=== PATIENT | female | born 1950 | race Caucasian/White ===

== ENCOUNTER 2016-11-10 15:46 | Observation (INO) | payer MEDICARE, BC ==
[2016-11-10] MEDS ORDERED: Ondansetron 4 MG Tab.DIS PO PRN (16:20)
[2016-11-10] MEDS ORDERED: Ibuprofen 200 MG Tab PO PRN (16:20)
[2016-11-10] MEDS ORDERED: Magnesium Sulfate/Water 100 ML IV ONE (16:25)
[2016-11-10] MEDS ORDERED: Thiamine 100 MG Tab PO STA (16:27)
[2016-11-10 17:17] LABS: CHLORIDE,CL 100 mmol/L (98-107); SODIUM,NA 135 mmol/L (136-145)
[2016-11-10] MEDS: Multivitamins with Iron/Calcium/Folic Acid/Minerals Tab PO SCH ×2 (17:17→19:33)
[2016-11-10] MEDS ORDERED: Acetaminophen 500 MG Tab PO PRN ×2 (18:23→18:29)
[2016-11-10] MEDS ORDERED: Acetaminophen 650 MG Tab.ER PO PRN (18:27)
--- NOTE | 2016-11-10 18:34 | PCM.HP ---
H&P History of Present Illness - General Date of Service: 11/10/16 Admit Problem/Dx: Admission Diagnosis/Problem Admission Diagnosis/Problem Hypokalemia Source of Information: Patient, Provider - History of Present Illness Initial Comments - Free Text/Narative: I was asked to admit patient today by her PCP for correction of hypomagnesiumemia and hypokalemia acute on chronic, levels of 0.9 and 2.8 respectively. Patient is been dealing with chronic GI issues for past six months plus. Weight loss around 35 pounds. Was having loose stools but the is improved. Stool was positive for C. diff antigen but nuclear acid testing and toxin testing were negative. She scheduled a repeat lower endoscopy. She has remote history of gastric bypass. She had CT abdomen and chest x-ray numerous blood tests which did not reveal any cause of her weight loss. She describes only eating about a couple of food per day of sardines salmon or similar. History of alcohol misuse the past she states she only has maybe one or two glasses of wine a week currently. Past medical history: Hip pain, colon polyp, anemia, DVT, GERD, depression, gastric bypass, alcohol misuse, hypertension. Allergies: Penicillin, Wellbutrin, Keflex, latex, lisinopril. Medications: Albuterol, Prozac, Imodium, losartan, aspirin. Social history: Quit smoking close to 30 years ago. Endorses about two glasses of wine per week. Family history: Noncontributory. Review of systems: Denies fever denies chills denies vomiting denies chest pain denies dyspnea denies abdominal pain denies any diarrhea currently. Denies dysuria. She notes she feels weak in general nothing focal. She notes some numbness and burning sensation to right thigh and left abdomen area. She denies any rash. Physical exam: Vital signs are normal. Alert oriented pleasant cooperative no acute distress heart and lungs are clear to auscultation abdomen soft nontender extremities warm well perfused without edema. Her creatinine is normal. Her potassium is 2.8 her magnesium is 0.9. Assessment and plan: Low potassium. Will correct with accommodation of oral and IV. Recheck levels in a.m. Given 4 g of magnesium. We'll attempt to discharge on oral product that will not cause as severe diarrhea. Regarding unintentional weight loss etiology is not clear. Fairly large workup has been negative without any findings of malignancy. She will proceed to colonoscopy later this month as planned. My suspicion is she has chronic under nutrition. She could have malabsorption from gastric bypass including bacterial overgrowth and short-bowel syndromes. She could have psychosomatic calorie restriction, she is only eating about a cup of food daily. Lastly surreptitious alcohol abuse can lead to malnutrition as well. Recommend referral to dietitian as well as getting second opinion from internal medicine. Headache Pain Score (Numeric/FACES): 4 - Related Data Allergies/Adverse Reactions: Allergies Allergy/AdvReac Type Severity Reaction Status Date / Time latex Allergy Rash Verified 05/24/14 12:16 Home Medications: Home Meds FLUoxetine [PROzac] 10 mg PO DAILY 11/10/16 [History] Losartan [Cozaar] 50 mg PO DAILY 11/10/16 [History] Multivitamin [Daily Multiple Vitamin] 1 tab PO DAILY 11/10/16 [History] Promethazine [Phenergan] 25 mg PO Q4H PRN 11/10/16 [History] Past Medical History HEENT History: Reports: Other (see below) Other HEENT History: left ear drum loss of hearing Cardiovascular History: Reports: Blood clots/VTE/DVT, Hypertension, Other (see below) Other Cardiovascular History: hx of dvts, pvcs Gastrointestinal History: Reports: Chronic diarrhea, Colon polyp, GERD, Other ( see below) Other Gastrointestinal History: hx of gatric bypass Genitourinary History: Reports: UTI, recurrent, Other (see below) Other Genitourinary History: urethral stenosis, urethral diverticulum Musculoskeletal History: Reports: Other (see below) Other Musculoskeletal History: osteopenia Psychiatric History: Reports: Anxiety, Depression Endocrine/Metabolic History: Reports: Osteopenia Hematologic History: Reports: Anemia, B12 deficiency, Iron deficiency - Past Surgical History HEENT Surgical History: Reports: None Cardiovascular Surgical History: Reports: None GI Surgical History: Reports: Bariatric procedure, Cholecystectomy, Colonoscopy , Hernia repair/other, Other (see below) Other GI Surgeries/Procedures: gastric bypass Female Surgical History: Reports: Breast reduction Endocrine Surgical History: Reports: None Musculoskeletal Surgical History: Reports: None Social & Family History - Family History Family Medical History: Noncontributory - Tobacco Use Smoking Status *Q: Former Smoker Second Hand Smoke Exposure: No - Caffeine Use Caffeine Use: Reports: None - Recreational Drug Use Recreational Drug Use: No H&P Review of Systems - Review of Systems: Review Of Systems: See Below Exam - Exam Exam: See Below - Vital Signs Vital Signs: Last Vital Signs Temp 36.7 C 11/10/16 17:05 Pulse 66 11/10/16 17:05 Resp 16 11/10/16 17:05 BP 119/81 11/10/16 17:05 Pulse Ox 98 11/10/16 17:05 Weight: 70.035 kg - Patient Data Lab Results last 24 hrs: Laboratory Results - last 24 hr 11/10/16 11/10/16 11/10/16 Range/Units 16:42 16:42 16:42 PT 11.9 (10.0-12.8) SEC INR 1.0 L (2.0-3.5) Sodium 135 L (136-145) mmol/L Potassium 2.8 L* (3.5-5.1) mmol/L Chloride 100 (98-107) mmol/L Carbon Dioxide 31 (21-32) mmol/L BUN 9 (7-18) mg/dL Creatinine 0.9 (0.55-1.02) mg/dL Est Cr Clr Drug Dosing 49.49 mL/min Estimated GFR (MDRD) > 60 Glucose 113 H (74-106) mg/dL Calcium 8.6 (8.5-10.1) mg/dL Corrected Calcium 9.80 (8.5-10.1) mg/dL Magnesium 0.9 L* (1.8-2.4) mg/dL Iron 48 L (50-170) ug/dL TIBC 181 L (250-450) ug/dL % Saturation 26.5 (20.0-50.0) % Total Bilirubin 0.6 (0.2-1.0) mg/dL AST 122 H (15-37) U/L ALT 37 (14-59) U/L Alkaline Phosphatase 96 (46-116) U/L Total Protein 6.2 L (6.4-8.2) g/dL Albumin 2.5 L (3.4-5.0) g/dL Globulin 3.7 Albumin/Globulin Ratio 0.68 Ethyl Alcohol < 3 (0-3) mg/dL Result Diagrams: 11/10/16 16:42 *Q Meaningful Use (ADM) - VTE *Q VTE Criteria *Q: - Stroke *Q Stroke Criteria *Q: - AMI *Q AMI Criteria *Q: Problem List Initiated/Reviewed/Updated: Yes Orders Last 24hrs: Active Orders 24 hr Category Date Time Status Admission Status [Patient Status] [ADT] Routine ADT 11/10/16 15:48 Active Patient Status [ADT] Routine ADT 11/10/16 16:20 Active Ambulate [RC] 08,20 Care 11/10/16 16:21 Active Height and Weight [RC] DAILY Care 11/10/16 16:20 Active Oxygen Therapy [RC] .PRN Care 11/10/16 16:20 Active Up ad Mary Ann [RC] 08,20 Care 11/10/16 16:20 Active VTE/DVT Education [RC] .PRN Care 11/10/16 16:20 Active Vital Signs [RC] 06,10,14,18,22,02 Care 11/10/16 16:20 Active Consult to Welfare Eligibility Worker [CONS] Routine Cons 11/10/16 18:27 Ordered Regular Diet [DIET] Diet 11/10/16 Dinner Active C-REACTIVE PROTEIN [CHEM] AM Lab 11/11/16 05:11 Ordered CBC WITH AUTO DIFF [HEME] AM Lab 11/11/16 05:11 Ordered COMPREHENSIVE METABOLIC PN,CMP [CHEM] AM Lab 11/11/16 05:11 Ordered DRUG SCREEN, URINE [URCHEM] Routine Lab 11/10/16 16:23 Uncollected GGT [REF] Routine Lab 11/10/16 16:42 Received MAGNESIUM [CHEM] AM Lab 11/11/16 05:11 Ordered PHOSPHORUS [CHEM] AM Lab 11/11/16 05:11 Ordered UA W/MICROSCOPIC [URIN] Routine Lab 11/10/16 16:20 Uncollected Acetaminophen [Tylenol Arthritis Pain] Med 11/10/16 18:27 Ordered 650 mg PO Q8H PRN Acetaminophen [Tylenol Extra Strength] Med 11/10/16 18:23 Ordered 500 mg PO Q6H PRN D5 1/2 NS w/ 40 mEq/L KCl 1,000 ml Med 11/10/16 16:30 Active IV ASDIRECTED Ibuprofen [Motrin] Med 11/10/16 16:20 Active 400 mg PO Q6H PRN Multivitamins w-Iron/Ca/FA/Min [Thera M Plus] Med 11/10/16 16:30 Active 1 tab PO BID Ondansetron [Zofran ODT] Med 11/10/16 16:20 Active 4 mg PO Q6H PRN Potassium Chloride [Klor-Con M20] Med 11/10/16 20:00 Active 20 meq PO TID Resuscitation Status Routine Resus Stat 11/10/16 16:20 Ordered Medication Orders Acetaminophen (Tylenol Extra Strength) 500 mg PO Q6H PRN PRN Reason: Pain Potassium Chloride/Dextrose/Sod Cl (D5 1/2 Ns W/ 40 Meq/L Kcl) 1,000 mls @ 150 mls/hr IV ASDIRECTED [facility] Ibuprofen (Motrin) 400 mg PO Q6H PRN PRN Reason: Pain (mild 1-3) Multivitamins/Minerals (Thera M Plus) 1 tab PO BID [facility] Last Admin: 11/10/16 17:17 Dose: 1 tab Ondansetron HCl (Zofran Odt) 4 mg PO Q6H PRN PRN Reason: nausea, able to take PO Potassium Chloride (Klor-Con M20) 20 meq PO TID LON
[2016-11-10] MEDS: D5 1/2 NS w/ 40 mEq/L KCl 1,000 ML IV SCH (18:38)
[2016-11-10] MEDS: Potassium Chloride 20 MEQ Tab.ER PO SCH (19:33)
[2016-11-11] MEDS: D5 1/2 NS w/ 40 mEq/L KCl 1,000 ML IV SCH ×2 (01:30→07:46)
[2016-11-11 07:02] LABS: CHLORIDE,CL 106 mmol/L (98-107); SODIUM,NA 141 mmol/L (136-145)
[2016-11-11] MEDS: Potassium Chloride 20 MEQ Tab.ER PO SCH ×2 (07:46→11:33)
[2016-11-11] MEDS: Multivitamins with Iron/Calcium/Folic Acid/Minerals Tab PO SCH (07:46)
[2016-11-11 11:06] VITALS: BP 102/61
--- NOTE | 2016-11-11 12:16 | PCM.DCSUM1 ---
Discharge Summary - Hospital Course Free Text/Narrative:: Patient was admitted for hypo potassium, magnesium, phosphorus. 2.8, 0.9, 1.1 respectively. Potassium and mag replaced normalized by day of discharge. Patient's tolerating oral intake. She eats very little maybe a cup of food per day. She minimizes alcohol use she think she only has two drinks of wine per week. She was having some issues with diarrhea in the past denies any issues now, her reflex C. difficile test at [facility] was negative. She said about a 35 pound weight loss over the past six months. Negative chest x-ray negative CT abdomen. Undergoing repeat lower endoscopy later this month. She's followed up with bariatric clinic as well. She eats very little, she hen pecks at her food, she's worried that foods will trigger diarrhea again. The diagnosis would be weight loss and electrolyte deficiencies from undernutrition and anorexia. This can be from physiologic digestion probs status post gastric bypass, it can be psychiatric in nature due to excessive restriction in these patients, additionally can be from consuming alcohol and other non-nutritive items. Patient refused to see dietitian during her stay. She'll follow-up with her primary next week to recheck electrolytes. She should push high-calorie foods at home and interim. I suggest she discuss with her primary about seeing dietitian on outpatient basis. She will proceed to repeat endoscopy as planned. I have sent oral potassium magnesium phosphorus replacements to the pharmacy. Could consider referral to eating disorder clinic as well. I would recommend avoiding aspirin and Sayed's and alcohol as he is can all cause gastric irritation status post gastric bypass. I do not see that she is on any secondary aspirin prophylaxis. - Discharge Data Discharge Date: 11/11/16 Discharge Disposition: Home, Self-Care 01 Condition: Critical - Patient Summary/Data Consults: Consultations 11/10/16 18:27 Consult to [facility] [CONS] Routine - Discharge Plan Home Medications: Home Meds FLUoxetine [PROzac] 10 mg PO DAILY 11/10/16 [History] Losartan [Cozaar] 50 mg PO DAILY 11/10/16 [History] Multivitamin [Daily Multiple Vitamin] 1 tab PO DAILY 11/10/16 [History] Promethazine [Phenergan] 25 mg PO Q4H PRN 11/10/16 [History] Acetaminophen [Tylenol Extra Strength] 500 mg PO Q6H PRN #0 tablet 11/11/16 [Rx] Albuterol [Ventolin HFA] 2 puff PO Q4H PRN 11/11/16 [History] Ondansetron [Zofran ODT] 4 mg PO Q6H PRN #0 tab.dis 11/11/16 [Rx] Potassium Chloride [Klor-Con M20] 20 meq PO TID tab.er 11/11/16 [Rx] - Patient Data Vitals - Most Recent: Last Vital Signs Temp 37.0 C 11/11/16 10:00 Pulse 70 11/11/16 10:00 Resp 18 11/11/16 10:00 BP 102/61 11/11/16 10:00 Pulse Ox 100 11/11/16 10:00 Weight - Most Recent: 70.216 kg I&O - Last 24 hours: Intake & Output 11/10/16 11/11/16 11/11/16 22:59 06:59 14:59 Intake Total 740 1950 200 Output Total 450 350 Balance 290 1600 200 Lab Results - Last 24 hrs: Laboratory Results - last 24 hr 11/10/16 11/10/16 11/10/16 Range/Units 16:42 16:42 16:42 WBC (4.0-10.0) x10^3/uL RBC (4.00-5.50) x10^6/uL Hgb (12.0-16.0) g/dL Hct (33.0-47.0) % MCV (78.0-93.0) fL MCH (26.0-32.0) pg MCHC (32.0-36.0) g/dL RDW Coeff of Bryant (10.0-15.0) % Plt Count (130-400) x10^3/uL Neut % (Auto) (50.0-80.0) % Lymph % (Auto) (25.0-50.0) % [place] % (Auto) (2.0-11.0) % Eos % (Auto) (0.0-4.0) % Baso % (Auto) (0.2-1.2) % PT 11.9 (10.0-12.8) SEC INR 1.0 L (2.0-3.5) Sodium 135 L (136-145) mmol/L Potassium 2.8 L* (3.5-5.1) mmol/L Chloride 100 (98-107) mmol/L Carbon Dioxide 31 (21-32) mmol/L BUN 9 (7-18) mg/dL Creatinine 0.9 (0.55-1.02) mg/dL Est Cr Clr Drug Dosing 49.49 mL/min Estimated GFR (MDRD) > 60 Glucose 113 H (74-106) mg/dL Calcium 8.6 (8.5-10.1) mg/dL Corrected Calcium 9.80 (8.5-10.1) mg/dL Phosphorus (2.6-4.7) mg/dL Magnesium 0.9 L* (1.8-2.4) mg/dL Iron 48 L (50-170) ug/dL TIBC 181 L (250-450) ug/dL % Saturation 26.5 (20.0-50.0) % Total Bilirubin 0.6 (0.2-1.0) mg/dL AST 122 H (15-37) U/L ALT 37 (14-59) U/L Alkaline Phosphatase 96 (46-116) U/L C-Reactive Protein (<=0.9) mg/dL Total Protein 6.2 L (6.4-8.2) g/dL Albumin 2.5 L (3.4-5.0) g/dL Globulin 3.7 Albumin/Globulin Ratio 0.68 Urine Color (YELLOW) Urine Appearance (CLEAR) Urine pH (5.0-8.0) Ur Specific [place] Urine Protein (NEGATIVE) mg/dL Urine Glucose (UA) (NEGATIVE) mg/dL Urine Ketones (NEGATIVE) mg/dL Urine Occult Blood (NEGATIVE) Urine Nitrite (NEGATIVE) Urine Bilirubin (NEGATIVE) Urine Urobilinogen (0.2) EU/dL Ur Leukocyte Esterase (NEGATIVE) Urine RBC (NOT SEEN) /HPF Urine WBC (NOT SEEN) /HPF Ur Squamous Epith Cells (NEGATIVE) /HPF Urine Bacteria (NEGATIVE) /HPF Urine Mucus (NEGATIVE) /LPF Urine Opiates Screen (NEGATIVE) Ur Buprenorphine Scrn (NEGATIVE) Ur Oxycodone Screen (NEGATIVE) Urine Methadone Screen (NEGATIVE) Ur Barbiturates Screen (NEGATIVE) Ur Tricyclics Screen (NEGATIVE) Ur Amphetamine Screen (NEGATIVE) U Methamphetamines Scrn (NEGATIVE) Urine MDMA Screen (NEGATIVE) U Benzodiazepines Scrn (NEGATIVE) U Cocaine Metab Screen (NEGATIVE) U Marijuana (THC) Screen (NEGATIVE) Ethyl Alcohol < 3 (0-3) mg/dL 11/10/16 11/10/16 11/11/16 Range/Units 20:03 20:03 06:29 WBC 3.8 L (4.0-10.0) x10^3/uL RBC 2.74 L (4.00-5.50) x10^6/uL Hgb 9.0 L (12.0-16.0) g/dL Hct 26.9 L (33.0-47.0) % MCV 98.2 H (78.0-93.0) fL MCH 32.8 H (26.0-32.0) pg MCHC 33.5 (32.0-36.0) g/dL RDW Coeff of Bryant 14.2 (10.0-15.0) % Plt Count 195 (130-400) x10^3/uL Neut % (Auto) 59.0 (50.0-80.0) % Lymph % (Auto) 23.7 L (25.0-50.0) % [place] % (Auto) 14.1 H (2.0-11.0) % Eos % (Auto) 2.9 (0.0-4.0) % Baso % (Auto) 0.3 (0.2-1.2) % PT (10.0-12.8) SEC INR (2.0-3.5) Sodium (136-145) mmol/L Potassium (3.5-5.1) mmol/L Chloride (98-107) mmol/L Carbon Dioxide (21-32) mmol/L BUN (7-18) mg/dL Creatinine (0.55-1.02) mg/dL Est Cr Clr Drug Dosing mL/min Estimated GFR (MDRD) Glucose (74-106) mg/dL Calcium (8.5-10.1) mg/dL Corrected Calcium (8.5-10.1) mg/dL Phosphorus (2.6-4.7) mg/dL Magnesium (1.8-2.4) mg/dL Iron (50-170) ug/dL TIBC (250-450) ug/dL % Saturation (20.0-50.0) % Total Bilirubin (0.2-1.0) mg/dL AST (15-37) U/L ALT (14-59) U/L Alkaline Phosphatase (46-116) U/L C-Reactive Protein (<=0.9) mg/dL Total Protein (6.4-8.2) g/dL Albumin (3.4-5.0) g/dL Globulin Albumin/Globulin Ratio Urine Color Yellow (YELLOW) Urine Appearance Cloudy H (CLEAR) Urine pH 7.0 (5.0-8.0) Ur Specific Newberry 1.010 Urine Protein Negative (NEGATIVE) mg/dL Urine Glucose (UA) Negative (NEGATIVE) mg/dL Urine Ketones Negative (NEGATIVE) mg/dL Urine Occult Blood Negative (NEGATIVE) Urine Nitrite Negative (NEGATIVE) Urine Bilirubin Negative (NEGATIVE) Urine Urobilinogen 0.2 (0.2) EU/dL Ur Leukocyte Esterase Large H (NEGATIVE) Urine RBC 0-5 (NOT SEEN) /HPF Urine WBC 10-20 H (NOT SEEN) /HPF Ur Squamous Epith Cells Many H (NEGATIVE) /HPF Urine Bacteria Few H (NEGATIVE) /HPF Urine Mucus Not seen (NEGATIVE) /LPF Urine Opiates Screen Negative (NEGATIVE) Ur Buprenorphine Scrn Negative (NEGATIVE) Ur Oxycodone Screen Negative (NEGATIVE) Urine Methadone Screen Negative (NEGATIVE) Ur Barbiturates Screen Negative (NEGATIVE) Ur Tricyclics Screen Negative (NEGATIVE) Ur Amphetamine Screen Negative (NEGATIVE) U Methamphetamines Scrn Negative (NEGATIVE) Urine MDMA Screen Negative (NEGATIVE) U Benzodiazepines Scrn Negative (NEGATIVE) U Cocaine Metab Screen Negative (NEGATIVE) U Marijuana (THC) Screen Negative (NEGATIVE) Ethyl Alcohol (0-3) mg/dL 11/11/16 Range/Units 06:29 WBC (4.0-10.0) x10^3/uL RBC (4.00-5.50) x10^6/uL Hgb (12.0-16.0) g/dL Hct (33.0-47.0) % MCV (78.0-93.0) fL MCH (26.0-32.0) pg MCHC (32.0-36.0) g/dL RDW Coeff of Bryant (10.0-15.0) % Plt Count (130-400) x10^3/uL Neut % (Auto) (50.0-80.0) % Lymph % (Auto) (25.0-50.0) % [place] % (Auto) (2.0-11.0) % Eos % (Auto) (0.0-4.0) % Baso % (Auto) (0.2-1.2) % PT (10.0-12.8) SEC INR (2.0-3.5) Sodium 141 (136-145) mmol/L Potassium 4.1 (3.5-5.1) mmol/L Chloride 106 (98-107) mmol/L Carbon Dioxide 29 (21-32) mmol/L BUN 8 (7-18) mg/dL Creatinine 0.9 (0.55-1.02) mg/dL Est Cr Clr Drug Dosing 49.49 mL/min Estimated GFR (MDRD) > 60 Glucose 120 H (74-106) mg/dL Calcium 7.9 L (8.5-10.1) mg/dL Corrected Calcium 9.34 (8.5-10.1) mg/dL Phosphorus 1.1 L* (2.6-4.7) mg/dL Magnesium 1.8 (1.8-2.4) mg/dL Iron (50-170) ug/dL TIBC (250-450) ug/dL % Saturation (20.0-50.0) % Total Bilirubin 0.5 (0.2-1.0) mg/dL AST 88 H (15-37) U/L ALT 30 (14-59) U/L Alkaline Phosphatase 92 (46-116) U/L C-Reactive Protein 2.6 H (<=0.9) mg/dL Total Protein 5.5 L (6.4-8.2) g/dL Albumin 2.2 L (3.4-5.0) g/dL Globulin 3.3 Albumin/Globulin Ratio 0.67 Urine Color (YELLOW) Urine Appearance (CLEAR) Urine pH (5.0-8.0) Ur Specific [place] Urine Protein (NEGATIVE) mg/dL Urine Glucose (UA) (NEGATIVE) mg/dL Urine Ketones (NEGATIVE) mg/dL Urine Occult Blood (NEGATIVE) Urine Nitrite (NEGATIVE) Urine Bilirubin (NEGATIVE) Urine Urobilinogen (0.2) EU/dL Ur Leukocyte Esterase (NEGATIVE) Urine RBC (NOT SEEN) /HPF Urine WBC (NOT SEEN) /HPF Ur Squamous Epith Cells (NEGATIVE) /HPF Urine Bacteria (NEGATIVE) /HPF Urine Mucus (NEGATIVE) /LPF Urine Opiates Screen (NEGATIVE) Ur Buprenorphine Scrn (NEGATIVE) Ur Oxycodone Screen (NEGATIVE) Urine Methadone Screen (NEGATIVE) Ur Barbiturates Screen (NEGATIVE) Ur Tricyclics Screen (NEGATIVE) Ur Amphetamine Screen (NEGATIVE) U Methamphetamines Scrn (NEGATIVE) Urine MDMA Screen (NEGATIVE) U Benzodiazepines Scrn (NEGATIVE) U Cocaine Metab Screen (NEGATIVE) U Marijuana (THC) Screen (NEGATIVE) Ethyl Alcohol (0-3) mg/dL Med Orders - Current: Current Medications Acetaminophen (Tylenol Extra Strength) 500 mg PO Q6H PRN PRN Reason: Pain Last Admin: 11/10/16 18:37 Dose: 500 mg Potassium Chloride/Dextrose/Sod Cl (D5 1/2 Ns W/ 40 Meq/L Kcl) 1,000 mls @ 150 mls/hr IV ASDIRECTED [facility] Last Admin: 11/11/16 07:46 Dose: 150 mls/hr Ibuprofen (Motrin) 400 mg PO Q6H PRN PRN Reason: Pain (mild 1-3) Multivitamins/Minerals (Thera M Plus) 1 tab PO BID [facility] Last Admin: 11/11/16 07:46 Dose: 1 tab Ondansetron HCl (Zofran Odt) 4 mg PO Q6H PRN PRN Reason: nausea, able to take PO Potassium Chloride (Klor-Con M20) 20 meq PO TID [facility] Last Admin: 11/11/16 11:33 Dose: 20 meq Discontinued Medications Acetaminophen (Tylenol Arthritis Pain) 650 mg PO Q8H PRN PRN Reason: Pain Acetaminophen (Tylenol Extra Strength) 500 mg PO Q6H PRN PRN Reason: Pain Magnesium Sulfate (Magnesium Sulfate 4 Gm In Water 100 Ml) 100 mls @ 100 mls/ hr IV ONETIME ONE Stop: 11/10/16 17:24 Last Admin: 11/10/16 17:17 Dose: 100 mls/hr Thiamine HCl (Vitamin B-1) 100 mg PO NOW STA Stop: 11/10/16 16:28 Last Admin: 11/10/16 17:17 Dose: 100 mg *Q Meaningful Use (DIS) - VTE *Q VTE Criteria *Q: - Stroke *Q Stroke Criteria *Q: - AMI *Q AMI Criteria *Q:
== END 2016-11-11 13:55 | disposition home or self-care (01) ==
LOC: VM.MS 15:48 → UNDOADMOB 16:06
PROVIDERS: ADMIT Family Medicine; ATTEND Family Medicine
DX: E87.6 Hypokalemia (principal); E83.42 Hypomagnesemia; K21.9 Gastro-esophageal reflux disease without esophagitis; F32.9 Major depressive disorder, single episode, unspecified; I10 Essential (primary) hypertension; D51.9 Vitamin B12 deficiency anemia, unspecified; F41.9 Anxiety disorder, unspecified; D50.0 Iron deficiency anemia secondary to blood loss (chronic); Z86.010 Personal history of colon polyps; Z79.899 Other long term (current) drug therapy; Z88.0 Allergy status to penicillin; Z88.8 Allergy status to other drugs, medicaments and biological substances; Z91.040 Latex allergy status; Z87.891 Personal history of nicotine dependence; M85.80 Other specified disorders of bone density and structure, unspecified site; Z90.49 Acquired absence of other specified parts of digestive tract; Z98.890 Other specified postprocedural states
CPT/HCPCS: 36415; 80053; 80305; 81001; 82977; 83540; 83550; 83735; 84100; 85025; 85610; 86140; 94760; 96365; 96366; 96367; A9270; G0378; G0480; J3475; J3480

== ENCOUNTER 2017-05-30 18:37 | Inpatient (IN) | payer MEDICARE, BC ==
[2017-05-30] MEDS ORDERED: Sodium Chloride 0.9% 10 ML Syringe FLUSH PRN (19:21)
--- NOTE | 2017-05-30 19:21 | EDM.PDOCBH ---
ED HPI GENERAL MEDICAL PROBLEM - General Chief Complaint: Drug or Alcohol Abuse Stated Complaint: "I need detox, I want to quit drinking" Time Seen by Provider: 05/30/17 18:38 Source of Information: Reports: Patient, Family, RN, RN Notes Reviewed History Limitations: Reports: No Limitations - History of Present Illness INITIAL COMMENTS - FREE TEXT/NARRATIVE: Patient presents the emergency room at [facility] requesting medical clearance so she may be admitted to a detox center for alcoholism. The patient states that she began heavily drinking about 6 years ago. The patient states that she drinks anywhere from 5-10 glasses of Bacardi liquor daily. The patient states that she has drink 10 glasses today prior to presentation. The patient states she has tried quitting "cold turkey" on her own without success. The patient states that she has "hit rock bottom" and needs to stop consuming alcohol. The patient states she has highly motivated. The patient states if she does not consume alcohol every 2-3 hours she starts feeling the effects of withdrawal such as shaking, agitation, sweating, and extreme cravings. The patient states that she has not had any recent legal trouble due to her alcoholism. The patient has not been formally detoxed in the past. The patient states that she is highly motivated to stop consuming alcohol. The patient currently denies any focal neurological deficit, however she does feel somewhat shaky. The patient denies any chest pain but has palpitations. The patient states she has diarrhea daily basis in which she does consume antidiarrheal medication daily. The patient denies any trouble with urination. The patient denies any shortness of breath. The patient states that she has been experiencing auditory and visual hallucinations over the past few days. The patient states she has a long-standing history of severe depression. 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: Other (see below) (None) - Related Data Allergies Allergy/AdvReac Type Severity Reaction Status Date / Time latex Allergy Rash Verified 05/30/17 20:45 Home Meds: Home Meds FLUoxetine [PROzac] 10 mg PO DAILY 11/10/16 [History] Multivitamin [Daily Multiple Vitamin] 1 tab PO DAILY 11/10/16 [History] Acetaminophen [Tylenol Extra Strength] 500 mg PO Q6H PRN #0 tablet 11/11/16 [Rx] Albuterol [Ventolin HFA] 2 puff PO Q4H PRN 11/11/16 [History] Biotin 2,500 mcg PO DAILY 05/30/17 [History] Cholecalciferol (Vitamin D3) [D3-2000] 5,000 units PO DAILY 05/30/17 [History] Cyanocobalamin (Vitamin B-12) [B-12] 1,000 mcg PO DAILY 05/30/17 [History] Omeprazole Magnesium [Prilosec Otc] 20 mg PO DAILY 05/30/17 [History] Past Medical History HEENT History: Reports: Other (See Below) Other HEENT History: left ear drum loss of hearing Cardiovascular History: Reports: Blood Clots/VTE/DVT, Hypertension Other Cardiovascular History: hx of dvts, pvcs Gastrointestinal History: Reports: Chronic Diarrhea, Colon Polyp, GERD, Other ( See Below) Other Gastrointestinal History: hx of gatric bypass Genitourinary History: Reports: UTI, Recurrent, Other (See Below) Other Genitourinary History: urethral stenosis, urethral diverticulum Musculoskeletal History: Reports: Other (See Below) Other Musculoskeletal History: osteopenia Psychiatric History: Reports: Addiction, Anxiety, Depression Endocrine/Metabolic History: Reports: Osteopenia Hematologic History: Reports: Anemia, B12 Deficiency, Iron Deficiency - Past Surgical History GI Surgical History: Reports: Bariatric Procedure, Cholecystectomy, Colonoscopy , Hernia Repair/Other, Other (See Below) Female Surgical History: Reports: Breast Reduction Endocrine Surgical History: Reports: None Social & Family History - Family History Family Medical History: Noncontributory - Tobacco Use Smoking Status *Q: Former Smoker Second Hand Smoke Exposure: No - Caffeine Use Caffeine Use: Reports: None - Alcohol Use Alcohol Use History: Yes Days Per Week of Alcohol Use: 7 Number of Drinks Per Day: 10 Total Drinks Per Week: 70 Date of Last Drink: 05/30/17 Alcohol Use in Last Twelve Months: Yes Alcohol Use Frequency: Daily Desires Substance Cessation Medication: Yes - Recreational Drug Use Recreational Drug Use: No - Living Situation & Occupation Living situation: Reports: , Alone Occupation: Retired ED ROS GENERAL - Review of Systems Review Of Systems: See Below Constitutional: Reports: Decreased Appetite. Denies: Fever, Chills, Weakness HEENT: Reports: No Symptoms Respiratory: Denies: Shortness of Breath, Cough Cardiovascular: Reports: Palpitations. Denies: Chest Pain GI/Abdominal: Reports: Diarrhea, Nausea, Vomiting. Denies: Abdominal Pain Skin: Reports: No Symptoms Neurological: Reports: No Symptoms. Denies: Dizziness, Headache, Numbness, Paresthesia, Tingling Psychiatric: Reports: Agitation, Anxiety, Cravings. Denies: Homicidal Ideation , Suicidal Ideation ED EXAM, BEHAVIORAL HEALTH - Physical Exam Exam: See Below Exam Limited By: No Limitations General Appearance: Alert, Anxious, Mild Distress Eye Exam: Bilateral Eye: EOMI, Normal Inspection, PERRL Head: Atraumatic, Normocephalic Neck: Supple Respiratory/Chest: No Respiratory Distress, Lungs Clear, Normal Breath Sounds Cardiovascular: Regular Rate, Rhythm, No Murmur GI/Abdominal: Soft, Non-Tender, Abnormal Bowel Sounds (Hyperactive) Neurological: Alert, Oriented x 3 Psychiatric: Depressed Mood, Flat Affect, Tearful, Auditory Hallucinations, Visual Hallucinations. No: Homicidal Thoughts, Suicidal Thoughts Skin Exam: Warm, Dry, Intact, Normal color, No rash EKG INTERPRETATION EKG Date: 05/30/17 Time: 19:36 Rhythm: NSR Rate (Beats/Min): 76 Spout [place]: Normal P-Wave: Present QRS: Normal ST-T: Normal QT: Normal VA/PQ Interval: 0.16 Comparison: NA - No Prior EKG EKG Interpretation Comments: 1. Sinus Rhythm with frequent Ventricular Premature Complexes with occasional Supraventricular premature complexes 2. Low QRS voltage in precordial leads 3. Nonspecific T-wave abnormality COURSE, BEHAVIORAL HEALTH COMP - Course Vital Signs: Last Vital Signs Temp 36.5 C 05/30/17 18:38 Pulse 82 05/30/17 18:38 Resp 18 05/30/17 18:38 BP 138/95 H 05/30/17 18:38 Pulse Ox 98 05/30/17 18:38 Orders, Labs, Meds: Active Orders 24 hr Category Date Time Status Admission Status [Patient Status] [ADT] Routine ADT 05/30/17 20:55 Ordered EKG 12 Lead [EKG Documentation Completion] [RC] STAT Care 05/30/17 19:22 Ordered Magnesium Sulfate/Water [Magnesium Sulfate 2 GM in Med 05/30/17 20:22 Active Water 50 ML] 2 gm Premix Bag 1 bag IV ONETIME Sodium Chloride 0.9% [Saline Flush] Med 05/30/17 19:21 Active 10 ml FLUSH ASDIRECTED PRN Peripheral IV Insertion Adult [OM.PC] Routine Oth 05/30/17 19:21 Ordered Medication Orders Magnesium Sulfate 2 gm/ Premix 50 mls @ 25 mls/hr IV ONETIME ONE Stop: 05/30/17 22:21 Sodium Chloride (Saline Flush) 10 ml FLUSH ASDIRECTED PRN PRN Reason: Keep Vein Open Laboratory Tests 05/30/17 05/30/17 05/30/17 Range/Units 19:55 19:55 20:25 WBC 9.2 (4.0-10.0) x10^3/uL RBC 4.03 (4.00-5.50) x10^6/uL Hgb 13.0 D (12.0-16.0) g/dL Hct 38.2 (33.0-47.0) % MCV 94.8 H D (78.0-93.0) fL MCH 32.3 H (26.0-32.0) pg MCHC 34.0 (32.0-36.0) g/dL RDW Coeff of Bryant 13.9 (10.0-15.0) % Plt Count 172 (130-400) x10^3/uL Neut % (Auto) 69.5 (50.0-80.0) % Lymph % (Auto) 20.2 L (25.0-50.0) % [place] % (Auto) 9.0 (2.0-11.0) % Eos % (Auto) 1.0 (0.0-4.0) % Baso % (Auto) 0.3 (0.2-1.2) % Sodium 136 (136-145) mmol/L Potassium 3.6 (3.5-5.1) mmol/L Chloride 100 (98-107) mmol/L Carbon Dioxide 25 (21-32) mmol/L BUN 8 (7-18) mg/dL Creatinine 1.0 (0.55-1.02) mg/dL Est Cr Clr Drug Dosing TNP Estimated GFR (MDRD) 55 Glucose 95 (74-106) mg/dL Calcium 8.4 L (8.5-10.1) mg/dL Corrected Calcium 9.20 (8.5-10.1) mg/dL Phosphorus 3.6 (2.6-4.7) mg/dL Magnesium 1.5 L (1.8-2.4) mg/dL Total Bilirubin 1.1 H (0.2-1.0) mg/dL AST 106 H (15-37) U/L ALT 66 H (14-59) U/L Alkaline Phosphatase 131 H (46-116) U/L Total Protein 7.1 (6.4-8.2) g/dL Albumin 3.0 L (3.4-5.0) g/dL Globulin 4.1 Albumin/Globulin Ratio 0.73 Urine Color Yellow (YELLOW) Urine Appearance Slightly cloudy H (CLEAR) Urine pH 6.5 (5.0-8.0) Ur Specific Clancy 1.010 Urine Protein Negative (NEGATIVE) mg/dL Urine Glucose (UA) Negative (NEGATIVE) mg/dL Urine Ketones Negative (NEGATIVE) mg/dL Urine Occult Blood Negative (NEGATIVE) Urine Nitrite Negative (NEGATIVE) Urine Bilirubin Negative (NEGATIVE) Urine Urobilinogen 1.0 (0.2) EU/dL Ur Leukocyte Esterase Small H (NEGATIVE) Urine RBC 0-5 (NOT SEEN) /HPF Urine WBC 10-20 H (NOT SEEN) /HPF Ur Squamous Epith Cells Few H (NEGATIVE) /HPF Urine Bacteria Few H (NEGATIVE) /HPF Urine Mucus Rare H (NEGATIVE) /LPF Urine Opiates Screen (NEGATIVE) Ur Buprenorphine Scrn (NEGATIVE) Ur Oxycodone Screen (NEGATIVE) Urine Methadone Screen (NEGATIVE) Ur Barbiturates Screen (NEGATIVE) Ur Tricyclics Screen (NEGATIVE) Ur Amphetamine Screen (NEGATIVE) U Methamphetamines Scrn (NEGATIVE) Urine MDMA Screen (NEGATIVE) U Benzodiazepines Scrn (NEGATIVE) U Cocaine Metab Screen (NEGATIVE) U Marijuana (THC) Screen (NEGATIVE) Ethyl Alcohol 154 H (0-3) mg/dL 05/30/17 Range/Units 20:27 WBC (4.0-10.0) x10^3/uL RBC (4.00-5.50) x10^6/uL Hgb (12.0-16.0) g/dL Hct (33.0-47.0) % MCV (78.0-93.0) fL MCH (26.0-32.0) pg MCHC (32.0-36.0) g/dL RDW Coeff of Bryant (10.0-15.0) % Plt Count (130-400) x10^3/uL Neut % (Auto) (50.0-80.0) % Lymph % (Auto) (25.0-50.0) % [place] % (Auto) (2.0-11.0) % Eos % (Auto) (0.0-4.0) % Baso % (Auto) (0.2-1.2) % Sodium (136-145) mmol/L Potassium (3.5-5.1) mmol/L Chloride (98-107) mmol/L Carbon Dioxide (21-32) mmol/L BUN (7-18) mg/dL Creatinine (0.55-1.02) mg/dL Est Cr Clr Drug Dosing Estimated GFR (MDRD) Glucose (74-106) mg/dL Calcium (8.5-10.1) mg/dL Corrected Calcium (8.5-10.1) mg/dL Phosphorus (2.6-4.7) mg/dL Magnesium (1.8-2.4) mg/dL Total Bilirubin (0.2-1.0) mg/dL AST (15-37) U/L ALT (14-59) U/L Alkaline Phosphatase (46-116) U/L Total Protein (6.4-8.2) g/dL Albumin (3.4-5.0) g/dL Globulin Albumin/Globulin Ratio Urine Color (YELLOW) Urine Appearance (CLEAR) Urine pH (5.0-8.0) Ur Specific Clancy Urine Protein (NEGATIVE) mg/dL Urine Glucose (UA) (NEGATIVE) mg/dL Urine Ketones (NEGATIVE) mg/dL Urine Occult Blood (NEGATIVE) Urine Nitrite (NEGATIVE) Urine Bilirubin (NEGATIVE) Urine Urobilinogen (0.2) EU/dL Ur Leukocyte Esterase (NEGATIVE) Urine RBC (NOT SEEN) /HPF Urine WBC (NOT SEEN) /HPF Ur Squamous Epith Cells (NEGATIVE) /HPF Urine Bacteria (NEGATIVE) /HPF Urine Mucus (NEGATIVE) /LPF Urine Opiates Screen Negative (NEGATIVE) Ur Buprenorphine Scrn Negative (NEGATIVE) Ur Oxycodone Screen Negative (NEGATIVE) Urine Methadone Screen Negative (NEGATIVE) Ur Barbiturates Screen Negative (NEGATIVE) Ur Tricyclics Screen Negative (NEGATIVE) Ur Amphetamine Screen Negative (NEGATIVE) U Methamphetamines Scrn Negative (NEGATIVE) Urine MDMA Screen Negative (NEGATIVE) U Benzodiazepines Scrn Negative (NEGATIVE) U Cocaine Metab Screen Negative (NEGATIVE) U Marijuana (THC) Screen Negative (NEGATIVE) Ethyl Alcohol (0-3) mg/dL Medications Generic Name Dose Route Start Last Admin Trade Name Freq PRN Reason Stop Dose Admin Magnesium Sulfate 2 gm/ Premix 50 mls @ 25 mls/hr 05/30/17 20:22 IV 05/30/17 22:21 ONETIME ONE Sodium Chloride 10 ml 05/30/17 19:21 Saline Flush FLUSH ASDIRECTED PRN Keep Vein Open Discontinued Medications Generic Name Dose Route Start Last Admin Trade Name Freq PRN Reason Stop Dose Admin Sodium Chloride 1,000 mls @ 999 mls/hr 05/30/17 19:55 05/30/17 19:52 Normal Saline IV 05/30/17 20:55 999 mls/hr ONETIME ONE Administration Ondansetron HCl 4 mg 05/30/17 19:56 05/30/17 20:15 Zofran IVPUSH 05/30/17 19:57 4 mg ONETIME ONE Administration Pantoprazole Sodium 40 mg 05/30/17 19:56 05/30/17 20:18 Protonix Iv IVPUSH 05/30/17 19:57 40 mg ONETIME ONE Administration Departure - Departure Time of Disposition: 21:01 Disposition: Refer to Observation Condition: Good Clinical Impression: Alcohol abuse with intoxication, Hypomagnesemia, Dehydration Urinary tract infection Qualifiers: Urinary tract infection type: acute cystitis Hematuria presence: without hematuria Qualified Code(s): N30.00 - Acute cystitis without hematuria - Discharge Information - Problem List & Annotations (1) Alcohol abuse with intoxication SNOMED Code(s): 10943780 Code(s): F10.129 - ALCOHOL ABUSE WITH INTOXICATION, UNSPECIFIED Status: Acute Priority: High Current Visit: Yes (2) Urinary tract infection SNOMED Code(s): 41744735 Code(s): N39.0 - URINARY TRACT INFECTION, SITE NOT SPECIFIED Status: Acute Priority: Medium Current Visit: Yes Qualifiers: Urinary tract infection type: acute cystitis Hematuria presence: without hematuria Qualified Code(s): N30.00 - Acute cystitis without hematuria (3) Dehydration SNOMED Code(s): 55806081 Code(s): E86.0 - DEHYDRATION Status: Acute Priority: Medium Current Visit: Yes (4) Hypomagnesemia SNOMED Code(s): 383398023 Code(s): E83.42 - HYPOMAGNESEMIA Status: Acute Priority: Medium Current Visit: Yes - Problem List Review Problem List Initiated/Reviewed/Updated: Yes - My Orders Last 24 Hours: My Active Orders 05/30/17 19:21 Sodium Chloride 0.9% [Saline Flush] 10 ml FLUSH ASDIRECTED PRN Peripheral IV Insertion Adult [OM.PC] Routine 05/30/17 19:22 EKG 12 Lead [EKG Documentation Completion] [RC] STAT 05/30/17 20:22 Magnesium Sulfate/Water [Magnesium Sulfate 2 GM in Water 50 ML] 2 gm Premix Bag 1 bag IV ONETIME 05/30/17 20:55 Admission Status [Patient Status] [ADT] Routine - Assessment/Plan Admission H&P: Please use this note as an admission H&P Last 24 Hours: My Active Orders 05/30/17 19:21 Sodium Chloride 0.9% [Saline Flush] 10 ml FLUSH ASDIRECTED PRN Peripheral IV Insertion Adult [OM.PC] Routine 05/30/17 19:22 EKG 12 Lead [EKG Documentation Completion] [RC] STAT 05/30/17 20:22 Magnesium Sulfate/Water [Magnesium Sulfate 2 GM in Water 50 ML] 2 gm Premix Bag 1 bag IV ONETIME 05/30/17 20:55 Admission Status [Patient Status] [ADT] Routine Plan: Patient will be admitted to the observation unit at [facility] for detox. The patient will have IV fluids with electrolyte replacement. The patient will be placed on CIWA. The patient will also have neuro checks. I will place the patient on telemetry due to a history of electrolyte imbalances. Patient agrees with the plan of care and this admission. The patient is a cold 1. DVT prophylaxis will be early ambulation.
[2017-05-30] MEDS ORDERED: Sodium Chloride 0.9% 1,000 ML IV ONE (19:55)
[2017-05-30] MEDS ORDERED: Pantoprazole 40 MG Vial IVPUSH ONE (19:56)
[2017-05-30] MEDS ORDERED: Ondansetron 4 MG/2 ML SDV IVPUSH ONE (19:56)
[2017-05-30 20:19] LABS: CHLORIDE,CL 100 mmol/L (98-107); SODIUM,NA 136 mmol/L (136-145)
[2017-05-30] MEDS ORDERED: Magnesium Sulfate/Water 2 GM in Premix Bag 1 BAG IV ONE (20:22)
[2017-05-30] MEDS ORDERED: Haloperidol Lactate 5 MG/ML SDV IVPUSH PRN (21:15)
[2017-05-30] MEDS ORDERED: cloNIDine 0.1 MG Tab PO PRN (21:15)
[2017-05-30] MEDS ORDERED: Promethazine 6.25 MG in Sodium Chloride 0.9% 100 ML IV PRN (21:24)
[2017-05-30] MEDS: LORazepam 2 MG/ML SDV IV PRN ×2 (22:38→23:46)
[2017-05-30] MEDS: Acetaminophen 325 MG Tab PO PRN (22:38)
[2017-05-30] MEDS: MVI, Adult with Vitamin K 10 ML, Folic Acid 1 MG, Thiamine 100 MG in Sodium Chloride 0.... IV SCH ×4 (22:46)
[2017-05-31] MEDS: LORazepam 2 MG/ML SDV IV PRN (03:38)
[2017-05-31 07:11] LABS: CHLORIDE,CL 108 mmol/L (98-107); SODIUM,NA 142 mmol/L (136-145)
[2017-05-31] MEDS: Pantoprazole 40 MG Vial IVPUSH SCH (08:44)
[2017-05-31] MEDS: FLUoxetine 20 MG Cap PO SCH (08:44)
[2017-05-31] MEDS: Acetaminophen 325 MG Tab PO PRN ×2 (09:00→17:41)
[2017-05-31] MEDS: Nitrofurantoin Monohydrate/Macrocrystalline 100 MG Cap PO SCH ×2 (09:53→20:25)
--- NOTE | 2017-05-31 11:17 | PCM.HP ---
H&P History of Present Illness - General Date of Service: 05/30/17 Admit Problem/Dx: Admission Diagnosis/Problem Admission Diagnosis/Problem Alcohol abuse with intoxication Urinary Tract Infection Dehydration Hypomagnesia Source of Information: Patient, Family, Old Records, RN, RN Notes Reviewed History Limitations: Reports: No Limitations - History of Present Illness Initial Comments - Free Text/Narative: Patient presented the emergency room at [facility] this evening requesting medical clearance so she may be admitted to a detox center for alcoholism. The patient states that she began heavily drinking about 6 years ago. The patient states that she drinks anywhere from 5-10 glasses of Bacardi liquor daily. The patient states that she has drink 10 glasses today prior to presentation. The patient states she has tried quitting "cold turkey" on her own without success. The patient states that she has "hit rock bottom" and needs to stop consuming alcohol. The patient states she is highly motivated. The patient states if she does not consume alcohol every 2-3 hours she starts feeling the effects of withdrawal such as shaking, agitation, sweating, and extreme cravings. The patient states that she has not had any recent legal trouble due to her alcoholism. The patient has not been formally detoxed in the past. The patient states that she is highly motivated to stop consuming alcohol. The patient currently denies any focal neurological deficit, however she does feel somewhat shaky. The patient denies any chest pain but has palpitations. The patient states she has diarrhea daily basis in which she does consume antidiarrheal medication daily. The patient denies any trouble with urination. The patient denies any shortness of breath. The patient states that she has been experiencing auditory and visual hallucinations over the past few days. The patient states she has a long-standing history of severe depression. Duration of Symptoms: Reports: Chronic - Related Data Allergies/Adverse Reactions: Allergies Allergy/AdvReac Type Severity Reaction Status Date / Time bupropion [From Wellbutrin] Allergy Hives Verified 05/31/17 08:51 latex Allergy Rash Verified 05/30/17 20:45 Penicillins Allergy Cardiac Verified 05/31/17 08:51 Arrest Home Medications: Home Meds FLUoxetine [PROzac] 10 mg PO DAILY 11/10/16 [History] Multivitamin [Daily Multiple Vitamin] 1 tab PO DAILY 11/10/16 [History] Acetaminophen [Tylenol Extra Strength] 500 mg PO Q6H PRN #0 tablet 11/11/16 [Rx] Albuterol [Ventolin HFA] 2 puff PO Q4H PRN 11/11/16 [History] Biotin 2,500 mcg PO DAILY 05/30/17 [History] Cholecalciferol (Vitamin D3) [D3-2000] 5,000 units PO DAILY 05/30/17 [History] Cyanocobalamin (Vitamin B-12) [B-12] 1,000 mcg PO DAILY 05/30/17 [History] Esomeprazole Magnesium [Nexium] 20 mg PO DAILY 05/31/17 [History] Past Medical History HEENT History: Reports: Other (See Below) Other HEENT History: left ear drum loss of hearing Cardiovascular History: Reports: Blood Clots/VTE/DVT, Hypertension Other Cardiovascular History: hx of dvts, pvcs Gastrointestinal History: Reports: Chronic Diarrhea, Colon Polyp, GERD, Other ( See Below) Other Gastrointestinal History: hx of gatric bypass Genitourinary History: Reports: UTI, Recurrent, Other (See Below) Other Genitourinary History: urethral stenosis, urethral diverticulum Musculoskeletal History: Reports: Other (See Below) Other Musculoskeletal History: osteopenia Psychiatric History: Reports: Addiction, Anxiety, Depression Endocrine/Metabolic History: Reports: Osteopenia Hematologic History: Reports: Anemia, B12 Deficiency, Iron Deficiency - Past Surgical History GI Surgical History: Reports: Bariatric Procedure, Cholecystectomy, Colonoscopy , Hernia Repair/Other, Other (See Below) Female Surgical History: Reports: Breast Reduction Endocrine Surgical History: Reports: None Social & Family History - Family History Family Medical History: Noncontributory - Tobacco Use Smoking Status *Q: Former Smoker Used Tobacco, but Quit: No Second Hand Smoke Exposure: No - Caffeine Use Caffeine Use: Reports: None - Alcohol Use Days Per Week of Alcohol Use: 7 Number of Drinks Per Day: 10 Total Drinks Per Week: 70 Date of Last Drink: 05/30/17 - Recreational Drug Use Recreational Drug Use: No - Living Situation & Occupation Living situation: Reports: , Alone Occupation: Retired H&P Review of Systems - Review of Systems: Review Of Systems: See Below General: Reports: Weakness, Fatigue, Night Sweats, Decreased Appetite. Denies: Fever, Chills Pulmonary: Denies: Shortness of Breath, Cough Cardiovascular: Reports: Palpitations, Lightheadedness. Denies: Chest Pain Gastrointestinal: Reports: Diarrhea, Nausea, Vomiting. Denies: Abdominal Pain Skin: Reports: No Symptoms Psychiatric: Reports: Depression, Anxiety, Agitation, Cravings, Hallucinations ( Auditory), Hallucinations (Visual). Denies: Suicidal Ideation, Homicidal Ideation Neurological: Reports: No Symptoms. Denies: Headache, Numbness, Paresthesia, Tingling Exam - Exam Exam: See Below - Vital Signs Vital Signs: Last Vital Signs Temp 37.1 C 05/31/17 10:00 Pulse 66 05/31/17 10:00 Resp 20 05/31/17 10:00 BP 144/73 H 05/31/17 10:00 Pulse Ox 95 05/31/17 10:00 Weight: 77.111 kg - Exam General: Alert, Oriented, Cooperative, Mild Distress Lungs: Clear to Auscultation, Normal Respiratory Effort Cardiovascular: Regular Rate, Regular Rhythm, Normal S1, Normal S2 GI/Abdominal Exam: Soft, Non-Tender, Abnormal Bowel Sounds (Hyperactive) Extremities: Normal Inspection Peripheral Pulses: 2+: Radial (L), Radial (R) Skin: Warm, Dry, Intact Neuro Extensive - Mental Status: Alert, Oriented x3 Psychiatric: Anxious, Depressed, Agitated, Hallucinations, Withdrawal Symptoms. No: Suicidal Ideation, Homicidal Ideation - Patient Data Lab Results Last 24 hrs: Laboratory Results - last 24 hr 05/31/17 05/31/17 05/31/17 Range/Units 06:40 06:40 06:40 WBC 3.5 L (4.0-10.0) x10^3/uL RBC 3.43 L (4.00-5.50) x10^6/uL Hgb 11.2 L D (12.0-16.0) g/dL Hct 33.5 (33.0-47.0) % MCV 97.7 H (78.0-93.0) fL MCH 32.7 H (26.0-32.0) pg MCHC 33.4 (32.0-36.0) g/dL RDW Coeff of Bryant 13.8 (10.0-15.0) % Plt Count 120 L (130-400) x10^3/uL Neut % (Auto) 57.3 (50.0-80.0) % Lymph % (Auto) 26.3 (25.0-50.0) % [place] % (Auto) 12.7 H (2.0-11.0) % Eos % (Auto) 3.4 (0.0-4.0) % Baso % (Auto) 0.3 (0.2-1.2) % PT 12.5 H (9.8-11.8) SEC INR 1.2 L (2.0-3.5) Sodium 142 (136-145) mmol/L Potassium 3.6 (3.5-5.1) mmol/L Chloride 108 H (98-107) mmol/L Carbon Dioxide 28 (21-32) mmol/L BUN 8 (7-18) mg/dL Creatinine 0.8 (0.55-1.02) mg/dL Est Cr Clr Drug Dosing TNP Estimated GFR (MDRD) > 60 Glucose 79 (74-106) mg/dL Calcium 7.5 L (8.5-10.1) mg/dL Magnesium 1.9 (1.8-2.4) mg/dL Ethyl Alcohol < 3 (0-3) mg/dL Result Diagrams: 05/31/17 06:40 05/31/17 06:40 *Q Meaningful Use (ADM) - VTE *Q VTE Criteria *Q: None indicated - Stroke *Q Stroke Criteria *Q: - AMI *Q AMI Criteria *Q: - Problem List (1) Alcohol abuse with intoxication SNOMED Code(s): 09646223 ICD Code: F10.129 - ALCOHOL ABUSE WITH INTOXICATION, UNSPECIFIED Status: Acute Priority: High Current Visit: Yes (2) Urinary tract infection SNOMED Code(s): 74523230 ICD Code: N39.0 - URINARY TRACT INFECTION, SITE NOT SPECIFIED Status: Acute Priority: Medium Current Visit: Yes Qualifiers: Urinary tract infection type: acute cystitis Hematuria presence: without hematuria Qualified Code(s): N30.00 - Acute cystitis without hematuria (3) Dehydration SNOMED Code(s): 96349980 ICD Code: E86.0 - DEHYDRATION Status: Acute Priority: Medium Current Visit: Yes (4) Hypomagnesemia SNOMED Code(s): 368957185 ICD Code: E83.42 - HYPOMAGNESEMIA Status: Acute Priority: Medium Current Visit: Yes Problem List Initiated/Reviewed/Updated: Yes Orders Last 24hrs: Active Orders 24 hr Category Date Time Status Patient Status [ADT] Routine ADT 05/30/17 21:24 Active Ambulate [RC] 08,20 Care 05/30/17 21:25 Active Assess Neurological Status [RC] Q30M Care 05/30/17 21:15 Active CIWAA Assessment [RC] Q30M Care 05/30/17 21:15 Active Cardiac Monitoring [RC] 06,10,14,18,22,02 Care 05/30/17 21:15 Active Intake and Output [RC] QSHIFT Care 05/30/17 21:25 Active May Shower [RC] DAILY Care 05/30/17 21:24 Active Notify Provider [RC] .PRN Care 05/30/17 21:15 Active Oxygen Therapy [RC] .PRN Care 05/30/17 21:24 Active Up With Assistance [RC] ,20 Care 05/30/17 21:24 Active VTE/DVT Education [RC] .PRN Care 05/30/17 21:24 Active Vital Signs [RC] 06,10,14,18,22,02 Care 05/30/17 21:24 Active Consult to Case Management [CONS] Routine Cons 05/30/17 21:23 Active Consult to Physical Therapy [PT Evaluation and Cons 05/30/17 21:22 Active Treatment] [CONS] Routine AMMONIA [REF] Routine Lab 05/31/17 06:40 Received Acetaminophen [Tylenol] Med 05/30/17 21:24 Active 650 mg PO Q4H PRN FLUoxetine [PROzac] Med 05/31/17 08:00 Active 20 mg PO DAILY Haloperidol Lactate [Haldol] Med 05/30/17 21:15 Active 2 mg IVPUSH Q4H PRN LORazepam [Ativan] Med 05/30/17 21:15 Active See Protocol IV ASDIRECTED PRN MVI, Adult with Vitamin K [Infuvite Adult] 10 ml Med 05/30/17 21:15 Active Folic Acid 1 mg Thiamine [Vitamin B-1] 100 mg Sodium Chloride 0.9% [Normal Saline] 1,000 ml IV Q24H Nitrofurantoin [place]/Macrocryst [Macrobid] Med 05/31/17 09:15 Active 100 mg PO BID Ondansetron [Zofran] Med 05/30/17 21:24 Active 4 mg IV Q6H PRN Pantoprazole [ProTONIX IV] Med 05/31/17 08:00 Active 40 mg IVPUSH Q24H Promethazine [Phenergan] 6.25 mg Med 05/30/17 21:24 Active Sodium Chloride 0.9% [Normal Saline] 100 ml IV Q6H cloNIDine [Catapres] Med 05/30/17 21:15 Active 0.1 mg PO Q4H PRN Resuscitation Status Routine Resus Stat 05/30/17 21:24 Ordered Medication Orders Acetaminophen (Tylenol) 650 mg PO Q4H PRN PRN Reason: Pain (Mild 1-3)/fever Last Admin: 05/31/17 09:00 Dose: 650 mg Admin: 05/30/17 22:38 Dose: 650 mg Clonidine HCl (Catapres) 0.1 mg PO Q4H PRN PRN Reason: Agitation Fluoxetine HCl (Prozac) 20 mg PO DAILY [facility] Last Admin: 05/31/17 08:44 Dose: 20 mg Haloperidol Lactate (Haldol) 2 mg IVPUSH Q4H PRN PRN Reason: Agitation Multivitamins/Minerals 10 ml/Folic Acid 1 mg/ Thiamine HCl 100 mg/ Sodium Chloride 1,011.2 mls @ 150 mls/hr IV Q24H [facility] Stop: 06/02/17 04:00 Last Admin: 05/30/17 22:46 Dose: 150 mls/hr Promethazine HCl 6.25 mg/ (Sodium Chloride) 100.25 mls @ 200 mls/hr IV Q6H PRN PRN Reason: Nausea/Vomiting Lorazepam (Ativan) 0 mg IV ASDIRECTED PRN; Protocol PRN Reason: Withdrawal Symptoms Last Admin: 05/31/17 03:38 Dose: 1 mg Admin: 05/30/17 23:46 Dose: 1 mg Admin: 05/30/17 22:38 Dose: 2 mg Nitrofurantoin Macrocrystals (Macrobid) 100 mg PO BID [facility] Last Admin: 05/31/17 09:53 Dose: 100 mg Ondansetron HCl (Zofran) 4 mg IV Q6H PRN PRN Reason: Nausea/Vomiting Pantoprazole Sodium (Protonix Iv) 40 mg IVPUSH Q24H [facility] Last Admin: 05/31/17 08:44 Dose: 40 mg Sodium Chloride (Saline Flush) 10 ml FLUSH ASDIRECTED PRN PRN Reason: Keep Vein Open Assessment/Plan Comment:: 67-year-old female patient with a past medical history of depression, hypertension, gastroesophageal reflux disease is admitted to the observation unit at [facility] for acute alcoholism with intoxication, urinary tract infection, dehydration, hypomagnesemia. The patient is a full code 1. The patient does not require DVT prophylaxis as she is ambulating. The patient will be started on a banana bag every 24 hours IV. The patient will be placed on CIWA and treated with benzodiazepines per CIWA scores. The patient will be on a regular diet. We will have physical therapy see the patient for her weakness. I will also ask case management to see this patient for placement after she has been detoxed. I will follow the patient's electrolytes closely as she has had issues with electrolyte imbalances in the past. Patient will be started on Macrobid for her UTI. I do anticipate this patient being here less than 48 hours , however there is always a possibility she may need longer detox treatment.
--- NOTE | 2017-05-31 11:53 | PCM.PN ---
- General Info Date of Service: 05/31/17 Admission Dx/Problem (Free Text): Admission Diagnosis/Problem Admission Diagnosis/Problem Alcohol abuse with intoxication Urinary Tract Infection Dehydration Hypomagnesia Subjective Update: Patient states overall she feels okay. The patient is very remorseful and feels ashamed of her alcoholism. Patient states that she feels agitated and very shaky. The patient states she still feels like she is having hallucinations. No chest pain no shortness of breath. The patient denies any other focal neurological deficit. Patient states that she continues to have a poor appetite. The patient has not had any issues with urination or bowel movements. Functional Status: Reports: Pain Controlled, Ambulating, Urinating Pain Score: 0 - Review of Systems General: Reports: Weakness, Fatigue. Denies: Fever, Chills Pulmonary: Denies: Shortness of Breath, Cough Cardiovascular: Reports: Palpitations. Denies: Chest Pain Gastrointestinal: Reports: Diarrhea, Nausea. Denies: Abdominal Pain, Vomiting Skin: Reports: No Symptoms Neurological: Reports: No Symptoms. Denies: Dizziness, Headache Psychiatric: Reports: Anxiety, Agitation, Cravings, Hallucinations - Patient Data Vitals - Most Recent: Last Vital Signs Temp 37.1 C 05/31/17 10:00 Pulse 66 05/31/17 10:00 Resp 20 05/31/17 10:00 BP 144/73 H 05/31/17 10:00 Pulse Ox 95 05/31/17 10:00 Weight - Most Recent: 77.111 kg I&O - Last 24 Hours: Intake & Output 05/30/17 05/31/17 05/31/17 22:59 06:59 14:59 Intake Total 1288 0 Output Total 500 500 Balance 788 -500 Lab Results Last 24 Hours: Laboratory Results - last 24 hr 05/31/17 05/31/17 05/31/17 Range/Units 06:40 06:40 06:40 WBC 3.5 L (4.0-10.0) x10^3/uL RBC 3.43 L (4.00-5.50) x10^6/uL Hgb 11.2 L D (12.0-16.0) g/dL Hct 33.5 (33.0-47.0) % MCV 97.7 H (78.0-93.0) fL MCH 32.7 H (26.0-32.0) pg MCHC 33.4 (32.0-36.0) g/dL RDW Coeff of Bryant 13.8 (10.0-15.0) % Plt Count 120 L (130-400) x10^3/uL Neut % (Auto) 57.3 (50.0-80.0) % Lymph % (Auto) 26.3 (25.0-50.0) % [place] % (Auto) 12.7 H (2.0-11.0) % Eos % (Auto) 3.4 (0.0-4.0) % Baso % (Auto) 0.3 (0.2-1.2) % PT 12.5 H (9.8-11.8) SEC INR 1.2 L (2.0-3.5) Sodium 142 (136-145) mmol/L Potassium 3.6 (3.5-5.1) mmol/L Chloride 108 H (98-107) mmol/L Carbon Dioxide 28 (21-32) mmol/L BUN 8 (7-18) mg/dL Creatinine 0.8 (0.55-1.02) mg/dL Est Cr Clr Drug Dosing TNP Estimated GFR (MDRD) > 60 Glucose 79 (74-106) mg/dL Calcium 7.5 L (8.5-10.1) mg/dL Magnesium 1.9 (1.8-2.4) mg/dL Ethyl Alcohol < 3 (0-3) mg/dL Med Orders - Current: Current Medications Acetaminophen (Tylenol) 650 mg PO Q4H PRN PRN Reason: Pain (Mild 1-3)/fever Last Admin: 05/31/17 09:00 Dose: 650 mg Clonidine HCl (Catapres) 0.1 mg PO Q4H PRN PRN Reason: Agitation Fluoxetine HCl (Prozac) 20 mg PO DAILY LON Last Admin: 05/31/17 08:44 Dose: 20 mg Haloperidol Lactate (Haldol) 2 mg IVPUSH Q4H PRN PRN Reason: Agitation Multivitamins/Minerals 10 ml/Folic Acid 1 mg/ Thiamine HCl 100 mg/ Sodium Chloride 1,011.2 mls @ 150 mls/hr IV Q24H LON Stop: 06/02/17 04:00 Last Admin: 05/30/17 22:46 Dose: 150 mls/hr Promethazine HCl 6.25 mg/ (Sodium Chloride) 100.25 mls @ 200 mls/hr IV Q6H PRN PRN Reason: Nausea/Vomiting Lorazepam (Ativan) 0 mg IV ASDIRECTED PRN; Protocol PRN Reason: Withdrawal Symptoms Last Admin: 05/31/17 03:38 Dose: 1 mg Nitrofurantoin Macrocrystals (Macrobid) 100 mg PO BID [facility] Last Admin: 05/31/17 09:53 Dose: 100 mg Ondansetron HCl (Zofran) 4 mg IV Q6H PRN PRN Reason: Nausea/Vomiting Pantoprazole Sodium (Protonix Iv) 40 mg IVPUSH Q24H [facility] Last Admin: 05/31/17 08:44 Dose: 40 mg Sodium Chloride (Saline Flush) 10 ml FLUSH ASDIRECTED PRN PRN Reason: Keep Vein Open Discontinued Medications Sodium Chloride (Normal Saline) 1,000 mls @ 999 mls/hr IV ONETIME ONE Stop: 05/30/17 20:55 Last Infusion: 05/30/17 20:55 Dose: Infused Magnesium Sulfate 2 gm/ Premix 50 mls @ 25 mls/hr IV ONETIME ONE Stop: 05/30/17 22:21 Last Admin: 05/30/17 21:00 Dose: 25 mls/hr Ondansetron HCl (Zofran) 4 mg IVPUSH ONETIME ONE Stop: 05/30/17 19:57 Last Admin: 05/30/17 20:15 Dose: 4 mg Pantoprazole Sodium (Protonix Iv) 40 mg IVPUSH ONETIME ONE Stop: 05/30/17 19:57 Last Admin: 05/30/17 20:18 Dose: 40 mg - Exam General: Alert, Oriented, Cooperative, Mild Distress Lungs: Clear to Auscultation, Normal Respiratory Effort Cardiovascular: Regular Rate, Regular Rhythm, No Murmurs GI/Abdominal Exam: Normal Bowel Sounds, Soft, Non-Tender Peripheral Pulses: 2+: Radial (L), Radial (R) Skin: Warm, Dry, Intact Neurological: No New Focal Deficit Psy/Mental Status: Anxious, Depressed, Agitated, Hallucinations, Withdrawal Symptoms. No: Suicidal Ideation - Problem List & Annotations (1) Alcohol abuse with intoxication SNOMED Code(s): 64241269 Code(s): F10.129 - ALCOHOL ABUSE WITH INTOXICATION, UNSPECIFIED Status: Acute Priority: High Current Visit: Yes (2) Urinary tract infection SNOMED Code(s): 96019994 Code(s): N39.0 - URINARY TRACT INFECTION, SITE NOT SPECIFIED Status: Acute Priority: Medium Current Visit: Yes Qualifiers: Urinary tract infection type: acute cystitis Hematuria presence: without hematuria Qualified Code(s): N30.00 - Acute cystitis without hematuria (3) Dehydration SNOMED Code(s): 51958154 Code(s): E86.0 - DEHYDRATION Status: Acute Priority: Medium Current Visit: Yes (4) Hypomagnesemia SNOMED Code(s): 309384434 Code(s): E83.42 - HYPOMAGNESEMIA Status: Acute Priority: Medium Current Visit: Yes - Problem List Review Problem List Initiated/Reviewed/Updated: Yes - My Orders Last 24 Hours: My Active Orders 05/30/17 21:15 Assess Neurological Status [RC] Q30M Cardiac Monitoring [RC] ,,,,, Notify Provider [RC] .PRN Haloperidol Lactate [Haldol] 2 mg IVPUSH Q4H PRN LORazepam [Ativan] See Protocol IV ASDIRECTED PRN MVI, Adult with Vitamin K [Infuvite Adult] 10 ml Folic Acid 1 mg Thiamine [ Vitamin B-1] 100 mg Sodium Chloride 0.9% [Normal Saline] 1,000 ml IV Q24H cloNIDine [Catapres] 0.1 mg PO Q4H PRN 05/30/17 21:22 Consult to Physical Therapy [PT Evaluation and Treatment] [CONS] Routine 05/30/17 21:23 Consult to Case Management [CONS] Routine 05/30/17 21:24 Patient Status [ADT] Routine May Shower [RC] DAILY Oxygen Therapy [RC] .PRN Up With Assistance [RC] VTE/DVT Education [RC] .PRN Vital Signs [RC] ,10,14,18,, Acetaminophen [Tylenol] 650 mg PO Q4H PRN Ondansetron [Zofran] 4 mg IV Q6H PRN Promethazine [Phenergan] 6.25 mg Sodium Chloride 0.9% [Normal Saline] 100 ml IV Q6H Resuscitation Status Routine 05/30/17 21:25 Ambulate [RC] 08,20 Intake and Output [RC] QSHIFT 05/31/17 06:40 AMMONIA [REF] Routine 05/31/17 08:00 FLUoxetine [PROzac] 20 mg PO DAILY Pantoprazole [ProTONIX IV] 40 mg IVPUSH Q24H 05/31/17 09:15 Nitrofurantoin [place]/Macrocryst [Macrobid] 100 mg PO BID 05/31/17 11:40 CIWAA Assessment [RC] Q1H 05/31/17 11:45 FERRITIN [CHEM] Routine FOLATE [REF] Routine IRON/TIBC [CHEM] Routine VITAMIN B12 [REF] Routine - Assessment Assessment:: 67-year-old patient with a past medical history of alcoholism, hypertension, depression admitted to the observation unit for acute alcoholism, UTI, dehydration, hypomagnesemia. The patient continues to exhibit DT symptoms. However, I do not feel she has gone through the worst of them yet. We will continue the patient on a banana bag. I will change the CIWA to every hour. We will continue with lorazepam and Haldol. I will await physical therapy's assessment. I have also spoken with the community case manager regarding this patient. We will see the patient will be accepted at the [facility] in [place] when she is medically stable. Given the patient's current symptoms today, I do anticipate the patient will be here longer than 48 hours. - Plan Plan:: 67-year-old female patient with a past medical history of depression, hypertension, gastroesophageal reflux disease is admitted to the observation unit at [facility] for acute alcoholism with intoxication, urinary tract infection, dehydration, hypomagnesemia. The patient is a full code 1. The patient does not require DVT prophylaxis as she is ambulating. The patient will be started on a banana bag every 24 hours IV. The patient will be placed on CIWA and treated with benzodiazepines per CIWA scores. The patient will be on a regular diet. We will have physical therapy see the patient for her weakness. I will also ask case management to see this patient for placement after she has been detoxed. I will follow the patient's electrolytes closely as she has had issues with electrolyte imbalances in the past. Patient will be started on Macrobid for her UTI. I do anticipate this patient being here less than 48 hours , however there is always a possibility she may need longer detox treatment.
[2017-05-31] MEDS: MVI, Adult with Vitamin K 10 ML, Folic Acid 1 MG, Thiamine 100 MG in Sodium Chloride 0.... IV SCH ×4 (20:25)
[2017-06-01] MEDS: Acetaminophen 325 MG Tab PO PRN (06:03)
[2017-06-01 06:51] LABS: CHLORIDE,CL 107 mmol/L (98-107); SODIUM,NA 141 mmol/L (136-145)
[2017-06-01] MEDS: Pantoprazole 40 MG Vial IVPUSH SCH (07:46)
[2017-06-01] MEDS: Nitrofurantoin Monohydrate/Macrocrystalline 100 MG Cap PO SCH ×2 (07:46→20:25)
[2017-06-01] MEDS: FLUoxetine 20 MG Cap PO SCH (07:46)
[2017-06-01] MEDS: LORazepam 2 MG/ML SDV IV PRN ×2 (07:48→18:26)
--- NOTE | 2017-06-01 07:48 | PCM.PN ---
- General Info Date of Service: 06/01/17 Admission Dx/Problem (Free Text): Admission Diagnosis/Problem Admission Diagnosis/Problem Alcohol abuse with intoxication Urinary Tract Infection Dehydration Hypomagnesia Subjective Update: Patient states overall she feels okay. The patient is very remorseful and feels ashamed of her alcoholism. Patient states she feels less shaky today. She states she woke up feeling agitated, but has resolved. Patient denies any current hallucinations. No chest pain no shortness of breath. The patient denies any other focal neurological deficit. Patient states that she continues to have a poor appetite. The patient has not had any issues with urination or bowel movements. Patient states her depression feels much worse. She denies any suicidal thoughts; she continues feeling ashamed. Functional Status: Reports: Pain Controlled, Tolerating Diet, Urinating Pain Score: 0 - Review of Systems General: Reports: Weakness. Denies: Fever, Chills, Night Sweats Pulmonary: Denies: Shortness of Breath, Sputum Cardiovascular: Denies: Chest Pain, Palpitations Gastrointestinal: Denies: Abdominal Pain, Nausea, Vomiting Skin: Reports: No Symptoms Neurological: Reports: No Symptoms Psychiatric: Reports: Depression, Anxiety, Cravings. Denies: Agitation, Hallucinations - Patient Data Vitals - Most Recent: Last Vital Signs Temp 36.6 C 06/01/17 06:00 Pulse 62 06/01/17 06:00 Resp 13 06/01/17 06:00 BP 146/82 H 06/01/17 06:00 Pulse Ox 96 06/01/17 06:00 Weight - Most Recent: 77.111 kg I&O - Last 24 Hours: Intake & Output 05/31/17 06/01/17 06/01/17 22:59 06:59 14:59 Intake Total 240 1640 Output Total 400 920 Balance -160 720 Lab Results Last 24 Hours: Laboratory Results - last 24 hr 05/31/17 05/31/17 05/31/17 Range/Units 06:40 12:00 12:00 WBC (4.0-10.0) x10^3/uL RBC (4.00-5.50) x10^6/uL Hgb (12.0-16.0) g/dL Hct (33.0-47.0) % MCV (78.0-93.0) fL MCH (26.0-32.0) pg MCHC (32.0-36.0) g/dL RDW Coeff of [place] (10.0-15.0) % Plt Count (130-400) x10^3/uL Neut % (Auto) (50.0-80.0) % Lymph % (Auto) (25.0-50.0) % [place] % (Auto) (2.0-11.0) % Eos % (Auto) (0.0-4.0) % Baso % (Auto) (0.2-1.2) % Sodium (136-145) mmol/L Potassium (3.5-5.1) mmol/L Chloride (98-107) mmol/L Carbon Dioxide (21-32) mmol/L BUN (7-18) mg/dL Creatinine (0.55-1.02) mg/dL Est Cr Clr Drug Dosing mL/min Estimated GFR (MDRD) Glucose (74-106) mg/dL Calcium (8.5-10.1) mg/dL Magnesium (1.8-2.4) mg/dL Iron 96 (50-170) ug/dL TIBC 321 (250-450) ug/dL % Saturation 29.9 (20.0-50.0) % Ferritin 48 (8-252) ng/mL Ammonia 46 (16-53) umol/L Vitamin B12 846 (180-914) pg/mL Folate ng/mL Specimen Appearance Clear 05/31/17 06/01/17 06/01/17 Range/Units 12:00 06:28 06:28 WBC 3.4 L (4.0-10.0) x10^3/uL RBC 3.42 L (4.00-5.50) x10^6/uL Hgb 11.1 L (12.0-16.0) g/dL Hct 33.7 (33.0-47.0) % MCV 98.5 H (78.0-93.0) fL MCH 32.5 H (26.0-32.0) pg MCHC 32.9 (32.0-36.0) g/dL RDW Coeff of [place] 13.6 (10.0-15.0) % Plt Count 130 (130-400) x10^3/uL Neut % (Auto) 62.8 (50.0-80.0) % Lymph % (Auto) 20.5 L (25.0-50.0) % [place] % (Auto) 12.2 H (2.0-11.0) % Eos % (Auto) 4.2 H (0.0-4.0) % Baso % (Auto) 0.3 (0.2-1.2) % Sodium 141 (136-145) mmol/L Potassium 3.7 (3.5-5.1) mmol/L Chloride 107 (98-107) mmol/L Carbon Dioxide 28 (21-32) mmol/L BUN 6 L (7-18) mg/dL Creatinine 0.8 (0.55-1.02) mg/dL Est Cr Clr Drug Dosing 52.49 mL/min Estimated GFR (MDRD) > 60 Glucose 107 H (74-106) mg/dL Calcium 7.8 L (8.5-10.1) mg/dL Magnesium 1.6 L (1.8-2.4) mg/dL Iron (50-170) ug/dL TIBC (250-450) ug/dL % Saturation (20.0-50.0) % Ferritin (8-252) ng/mL Ammonia (16-53) umol/L Vitamin B12 (180-914) pg/mL Folate >22.0 ng/mL Specimen Appearance Med Orders - Current: Current Medications Acetaminophen (Tylenol) 650 mg PO Q4H PRN PRN Reason: Pain (Mild 1-3)/fever Last Admin: 06/01/17 06:03 Dose: 650 mg Clonidine HCl (Catapres) 0.1 mg PO Q4H PRN PRN Reason: Agitation Fluoxetine HCl (Prozac) 20 mg PO DAILY [facility] Last Admin: 05/31/17 08:44 Dose: 20 mg Haloperidol Lactate (Haldol) 2 mg IVPUSH Q4H PRN PRN Reason: Agitation Multivitamins/Minerals 10 ml/Folic Acid 1 mg/ Thiamine HCl 100 mg/ Sodium Chloride 1,011.2 mls @ 150 mls/hr IV Q24H LON Stop: 06/02/17 04:00 Last Admin: 05/31/17 20:25 Dose: 150 mls/hr Promethazine HCl 6.25 mg/ (Sodium Chloride) 100.25 mls @ 200 mls/hr IV Q6H PRN PRN Reason: Nausea/Vomiting Lorazepam (Ativan) 0 mg IV ASDIRECTED PRN; Protocol PRN Reason: Withdrawal Symptoms Last Admin: 05/31/17 03:38 Dose: 1 mg Nitrofurantoin Macrocrystals (Macrobid) 100 mg PO BID [facility] Last Admin: 05/31/17 20:25 Dose: 100 mg Ondansetron HCl (Zofran) 4 mg IV Q6H PRN PRN Reason: Nausea/Vomiting Pantoprazole Sodium (Protonix Iv) 40 mg IVPUSH Q24H [facility] Last Admin: 05/31/17 08:44 Dose: 40 mg Sodium Chloride (Saline Flush) 10 ml FLUSH ASDIRECTED PRN PRN Reason: Keep Vein Open Discontinued Medications Sodium Chloride (Normal Saline) 1,000 mls @ 999 mls/hr IV ONETIME ONE Stop: 05/30/17 20:55 Last Infusion: 05/30/17 20:55 Dose: Infused Magnesium Sulfate 2 gm/ Premix 50 mls @ 25 mls/hr IV ONETIME ONE Stop: 05/30/17 22:21 Last Admin: 05/30/17 21:00 Dose: 25 mls/hr Ondansetron HCl (Zofran) 4 mg IVPUSH ONETIME ONE Stop: 05/30/17 19:57 Last Admin: 05/30/17 20:15 Dose: 4 mg Pantoprazole Sodium (Protonix Iv) 40 mg IVPUSH ONETIME ONE Stop: 05/30/17 19:57 Last Admin: 05/30/17 20:18 Dose: 40 mg - Exam General: Alert, Oriented, Cooperative, Mild Distress Neck: Supple Lungs: Clear to Auscultation, Normal Respiratory Effort Cardiovascular: Regular Rate, Regular Rhythm, No Murmurs GI/Abdominal Exam: Normal Bowel Sounds, Soft, Non-Tender Skin: Warm, Dry, Intact Neurological: No New Focal Deficit Psy/Mental Status: Alert, Labile Mood, Anxious, Depressed. No: Agitated, Suicidal Ideation, Homicidal Ideation - Problem List & Annotations (1) Alcohol abuse with intoxication SNOMED Code(s): 88940144 Code(s): F10.129 - ALCOHOL ABUSE WITH INTOXICATION, UNSPECIFIED Status: Acute Priority: High Current Visit: Yes (2) Urinary tract infection SNOMED Code(s): 41832023 Code(s): N39.0 - URINARY TRACT INFECTION, SITE NOT SPECIFIED Status: Acute Priority: Medium Current Visit: Yes Qualifiers: Urinary tract infection type: acute cystitis Hematuria presence: without hematuria Qualified Code(s): N30.00 - Acute cystitis without hematuria (3) Dehydration SNOMED Code(s): 61232700 Code(s): E86.0 - DEHYDRATION Status: Acute Priority: Medium Current Visit: Yes (4) Hypomagnesemia SNOMED Code(s): 790013190 Code(s): E83.42 - HYPOMAGNESEMIA Status: Acute Priority: Medium Current Visit: Yes - Problem List Review Problem List Initiated/Reviewed/Updated: Yes - My Orders Last 24 Hours: My Active Orders 05/31/17 08:00 FLUoxetine [PROzac] 20 mg PO DAILY Pantoprazole [ProTONIX IV] 40 mg IVPUSH Q24H 05/31/17 09:15 Nitrofurantoin [place]/Macrocryst [Macrobid] 100 mg PO BID 05/31/17 11:40 CIWAA Assessment [RC] Q1H 05/31/17 13:38 Neuro Check [RC] BID 06/01/17 07:36 Patient Status [ADT] Routine - Assessment Assessment:: 67-year-old patient with a past medical history of alcoholism, hypertension, depression admitted to the observation unit for acute alcoholism, UTI, dehydration, hypomagnesemia. The patient continues to exhibit DT symptoms. However, I do not feel she has gone through the worst of them yet. We will continue the patient on a banana bag. I will change the CIWA to every hour. We will continue with lorazepam and Haldol. I will await physical therapy's assessment. I have also spoken with the classification case manager regarding this patient. We will see the patient will be accepted at the [facility] in [place] when she is medically stable. Given the patient's current symptoms today, I do anticipate the patient will be here longer than 48 hours. - Plan Plan:: 67-year-old female patient with a past medical history of depression, hypertension, gastroesophageal reflux disease is admitted to the observation unit at [facility] for acute alcoholism with intoxication, urinary tract infection, dehydration, hypomagnesemia. The patient is a full code 1. The patient does not require DVT prophylaxis as she is ambulating. The patient will continue on a banana bag every 24 hours IV. We will continue on CIWA and treated with benzodiazepines per CIWA scores. No change with diet. Still awaiting eval from physical therapy for her weakness. Case management is working on placement after she has been detoxed. Continue follow the patient's electrolytes closely as she has had issues with electrolyte imbalances in the past. Continue on Macrobid for UTI. Change status to acute today. Dr. Sera Calderon will assume care of this patient while on acute status. We will continue pursuing CD placement for this patient. Replace Magnesium IV and recheck tomorrow morning. Will increase Prozac to 40 mg today for worsening depression.
[2017-06-01] MEDS ORDERED: Magnesium Sulfate/Water 2 GM in Premix Bag 1 BAG IV ONE (07:52)
[2017-06-01] MEDS ORDERED: FLUoxetine 20 MG Cap PO SCH (08:00)
[2017-06-01] MEDS ORDERED: FLUoxetine 20 MG Cap PO ONE (08:15)
[2017-06-01] MEDS: Ondansetron 4 MG/2 ML SDV IV PRN ×2 (08:33→18:27)
[2017-06-01] MEDS: MVI, Adult with Vitamin K 10 ML, Folic Acid 1 MG, Thiamine 100 MG in Sodium Chloride 0.... IV SCH ×4 (20:25)
[2017-06-02] MEDS: LORazepam 2 MG/ML SDV IV PRN ×3 (02:49→22:30)
[2017-06-02] MEDS: Acetaminophen 325 MG Tab PO PRN ×2 (03:30→18:26)
[2017-06-02] MEDS: Nitrofurantoin Monohydrate/Macrocrystalline 100 MG Cap PO SCH ×3 (06:30→20:06)
[2017-06-02] MEDS: FLUoxetine 20 MG Cap PO SCH ×2 (06:30→07:24)
[2017-06-02] MEDS: Pantoprazole 40 MG Vial IVPUSH SCH ×2 (06:31→07:24)
[2017-06-02 07:19] LABS: CHLORIDE,CL 105 mmol/L (98-107); SODIUM,NA 142 mmol/L (136-145)
[2017-06-02] MEDS ORDERED: Magnesium Sulfate/Water 2 GM in Premix Bag 1 BAG IV ONE (07:53)
--- NOTE | 2017-06-02 08:02 | PCM.PN ---
- General Info Date of Service: 06/02/17 Subjective Update: Patient is feeling worse again this morning. She states she feels like she did the first day of admission. She is having increased shakiness, increased anxiety , and increased nausea. She does not feel this is strictly anxiety. She does feel anxious but does not feel this explains her symptoms fully. She denies any other symptoms. - Review of Systems General: Reports: No Symptoms HEENT: Reports: No Symptoms Pulmonary: Reports: No Symptoms Cardiovascular: Reports: No Symptoms Gastrointestinal: Reports: No Symptoms Genitourinary: Reports: No Symptoms Musculoskeletal: Reports: No Symptoms Skin: Reports: No Symptoms - Patient Data Vitals - Most Recent: Last Vital Signs Temp 36.7 C 06/02/17 06:00 Pulse 54 L 06/02/17 06:00 Resp 18 06/02/17 02:00 BP 150/85 H 06/02/17 06:00 Pulse Ox 97 06/02/17 06:00 Weight - Most Recent: 77.111 kg I&O - Last 24 Hours: Intake & Output 06/01/17 06/02/17 06/02/17 22:59 06:59 14:59 Intake Total 760 1530 Output Total 600 800 Balance 160 730 Lab Results Last 24 Hours: Laboratory Results - last 24 hr 06/02/17 06/02/17 Range/Units 06:57 06:57 WBC 3.6 L (4.0-10.0) x10^3/uL RBC 3.66 L (4.00-5.50) x10^6/uL Hgb 12.0 (12.0-16.0) g/dL Hct 36.3 (33.0-47.0) % MCV 99.2 H (78.0-93.0) fL MCH 32.8 H (26.0-32.0) pg MCHC 33.1 (32.0-36.0) g/dL RDW Coeff of Bryant 13.6 (10.0-15.0) % Plt Count 148 (130-400) x10^3/uL Neut % (Auto) 58.9 (50.0-80.0) % Lymph % (Auto) 25.9 (25.0-50.0) % [place] % (Auto) 10.7 (2.0-11.0) % Eos % (Auto) 3.9 (0.0-4.0) % Baso % (Auto) 0.6 (0.2-1.2) % Sodium 142 (136-145) mmol/L Potassium 4.0 (3.5-5.1) mmol/L Chloride 105 (98-107) mmol/L Carbon Dioxide 29 (21-32) mmol/L BUN 6 L (7-18) mg/dL Creatinine 0.8 (0.55-1.02) mg/dL Est Cr Clr Drug Dosing 52.49 mL/min Estimated GFR (MDRD) > 60 Glucose 112 H (74-106) mg/dL Calcium 8.2 L (8.5-10.1) mg/dL Magnesium 1.6 L (1.8-2.4) mg/dL Med Orders - Current: Current Medications Acetaminophen (Tylenol) 650 mg PO Q4H PRN PRN Reason: Pain (Mild 1-3)/fever Last Admin: 06/02/17 03:30 Dose: 650 mg Clonidine HCl (Catapres) 0.1 mg PO Q4H PRN PRN Reason: Agitation Fluoxetine HCl (Prozac) 40 mg PO DAILY [facility] Last Admin: 06/02/17 07:24 Dose: Not Given Haloperidol Lactate (Haldol) 2 mg IVPUSH Q4H PRN PRN Reason: Agitation Promethazine HCl 6.25 mg/ (Sodium Chloride) 100.25 mls @ 200 mls/hr IV Q6H PRN PRN Reason: Nausea/Vomiting Magnesium Sulfate 2 gm/ Premix 50 mls @ 25 mls/hr IV ONETIME ONE Stop: 06/02/17 09:52 Lorazepam (Ativan) 0 mg IV ASDIRECTED PRN; Protocol PRN Reason: Withdrawal Symptoms Last Admin: 06/02/17 02:49 Dose: 1 mg Nitrofurantoin Macrocrystals (Macrobid) 100 mg PO BID [facility] Last Admin: 06/02/17 07:24 Dose: Not Given Ondansetron HCl (Zofran) 4 mg IV Q6H PRN PRN Reason: Nausea/Vomiting Last Admin: 06/01/17 18:27 Dose: 4 mg Pantoprazole Sodium (Protonix Iv) 40 mg IVPUSH Q24H [facility] Last Admin: 06/02/17 07:24 Dose: Not Given Sodium Chloride (Saline Flush) 10 ml FLUSH ASDIRECTED PRN PRN Reason: Keep Vein Open Discontinued Medications Fluoxetine HCl (Prozac) 20 mg PO DAILY [facility] Last Admin: 06/01/17 07:46 Dose: 20 mg Fluoxetine HCl (Prozac) 40 mg PO DAILY [facility] Last Admin: 06/01/17 08:16 Dose: Not Given Fluoxetine HCl (Prozac) 20 mg PO ONETIME ONE Stop: 06/01/17 08:16 Last Admin: 06/01/17 08:31 Dose: 20 mg Sodium Chloride (Normal Saline) 1,000 mls @ 999 mls/hr IV ONETIME ONE Stop: 05/30/17 20:55 Last Infusion: 05/30/17 20:55 Dose: Infused Magnesium Sulfate 2 gm/ Premix 50 mls @ 25 mls/hr IV ONETIME ONE Stop: 05/30/17 22:21 Last Admin: 05/30/17 21:00 Dose: 25 mls/hr Multivitamins/Minerals 10 ml/Folic Acid 1 mg/ Thiamine HCl 100 mg/ Sodium Chloride 1,011.2 mls @ 150 mls/hr IV Q24H [facility] Stop: 06/02/17 04:00 Last Admin: 06/01/17 20:25 Dose: 150 mls/hr Magnesium Sulfate 2 gm/ Premix 50 mls @ 25 mls/hr IV ONETIME ONE Stop: 06/01/17 09:51 Last Admin: 06/01/17 08:31 Dose: 25 mls/hr Ondansetron HCl (Zofran) 4 mg IVPUSH ONETIME ONE Stop: 05/30/17 19:57 Last Admin: 05/30/17 20:15 Dose: 4 mg Pantoprazole Sodium (Protonix Iv) 40 mg IVPUSH ONETIME ONE Stop: 05/30/17 19:57 Last Admin: 05/30/17 20:18 Dose: 40 mg - Exam General: Alert, Oriented, Cooperative, No Acute Distress HEENT: Pupils Equal, Pupils Reactive, Mucous Membr. Moist/[place] Neck: Supple, Trachea Midline, No Thyromegaly. No: Lymphadenopathy Lungs: Clear to Auscultation, Normal Respiratory Effort Cardiovascular: Regular Rate, Regular Rhythm, No Murmurs GI/Abdominal Exam: Normal Bowel Sounds, Soft, Non-Tender, No Organomegaly, No Distention, No Mass Extremities: Normal Inspection, No Pedal Edema Peripheral Pulses: 2+: Posterior Tibial (L), Posterior Tibial (R), Dorsalis Pedis (L), Dorsalis Pedis (R) Skin: Warm, Dry, Intact - Problem List & Annotations (1) Alcohol withdrawal SNOMED Code(s): 409171132 Code(s): F10.239 - ALCOHOL DEPENDENCE WITH WITHDRAWAL, UNSPECIFIED Status: Acute Current Visit: Yes Qualifiers: Complication of substance-induced condition: uncomplicated Qualified Code(s ): F10.230 - Alcohol dependence with withdrawal, uncomplicated Annotation/Comment:: - Patient is still within 72 hours and seems to have increased withdrawal symptoms today. - Therefore, I do not feel she is medically ready to be dismissed today. I would recommend keeping her at least another 24 hours for monitoring. - Continue CIWA with PRN lorazepam. - Also has PRN haloperidol and clonidine available. - Plan for sobriety is to do an intensive outpatient treatment program in [place], [place]. Will tentatively plan to dismiss her to have her intake there tomorrow. (2) Hypomagnesemia SNOMED Code(s): 548828045 Code(s): E83.42 - HYPOMAGNESEMIA Status: Acute Priority: Medium Current Visit: Yes Annotation/Comment:: - Mg still low today despite repletion yesterday. - 2 grams mag sulfate again today. - Recheck tomorrow. (3) Urinary tract infection SNOMED Code(s): 71653110 Code(s): N39.0 - URINARY TRACT INFECTION, SITE NOT SPECIFIED Status: Acute Priority: Medium Current Visit: Yes Qualifiers: Urinary tract infection type: acute cystitis Hematuria presence: without hematuria Qualified Code(s): N30.00 - Acute cystitis without hematuria Annotation/Comment:: - Patient is on macrobid for this. No symptoms at this time. - Problem List Review Problem List Initiated/Reviewed/Updated: Yes - My Orders Last 24 Hours: My Active Orders 06/02/17 07:53 Magnesium Sulfate/Water [Magnesium Sulfate 2 GM in Water 50 ML] 2 gm Premix Bag 1 bag IV ONETIME - Assessment Assessment:: 67-year-old female admitted for alcohol withdrawal. See details under problem list above. The patient is feeling worse today and is not comfortable with dismissal today. - Plan Plan:: See details under problems above. No changes today. Another dose of magnesium today. Patient will remain on acute status today with tentative plan for dismissal tomorrow. She is full code. Patient is not on any VTE prophylaxis but per nursing staff she is very active within her room. Therefore, reasonable to hold off on any pharmacologic VTE prophylaxis for now as she seems to be moving at her baseline.
[2017-06-02] MEDS: Ondansetron 4 MG/2 ML SDV IV PRN ×2 (08:18→22:30)
[2017-06-03 06:24] VITALS: BP 155/78
[2017-06-03] MEDS: Acetaminophen 325 MG Tab PO PRN (06:53)
[2017-06-03] MEDS: LORazepam 2 MG/ML SDV IV PRN (06:54)
[2017-06-03 07:02] LABS: CHLORIDE,CL 103 mmol/L (98-107); SODIUM,NA 141 mmol/L (136-145)
--- NOTE | 2017-06-03 07:50 | PCM.DCSUM1 ---
Discharge Summary - Hospital Course Brief History: Ms. Alvarez is a 67 yo female who was admitted for alcohol withdrawal management. - Discharge Data Discharge Date: 06/03/17 Discharge Disposition: Home, Self-Care 01 Condition: Fair - Discharge Diagnosis/Problem(s) (1) Alcohol withdrawal SNOMED Code(s): 371042323 ICD Code: F10.239 - ALCOHOL DEPENDENCE WITH WITHDRAWAL, UNSPECIFIED Status : Acute Current Visit: Yes Problem Details: She initially presented for assistance with alcohol withdrawal and planning for sobriety. She did require a fair amount of lorazepam in the first 24 hours and then was doing well. Yesterday, her withdrawal symptoms worsened again and she required a few doses of lorazepam. She is doing much better this morning and is out of the 72 hour window so she is medically stable for dismissal today. She will be heading directly to [place] for intake for chemical dependency treatment. Qualifiers: Complication of substance-induced condition: uncomplicated Qualified Code(s ): F10.230 - Alcohol dependence with withdrawal, uncomplicated (2) Hypomagnesemia SNOMED Code(s): 869159120 ICD Code: E83.42 - HYPOMAGNESEMIA Status: Acute Priority: Medium Current Visit: Yes Problem Details: Her magnesium has been low during her hospitalization. She has had some repletion. I would anticipate this to improve as her diet improves. (3) Urinary tract infection SNOMED Code(s): 48785551 ICD Code: N39.0 - URINARY TRACT INFECTION, SITE NOT SPECIFIED Status: Acute Priority: Medium Current Visit: Yes Problem Details: Patient was treated with macrobid. No symptoms at this time. She has had adequate treatment for this and does not need to continue antibiotics at the time of dismissal. Qualifiers: Urinary tract infection type: acute cystitis Hematuria presence: without hematuria Qualified Code(s): N30.00 - Acute cystitis without hematuria - Patient Summary/Data Operative Procedure(s) Performed: none Complications: none Consults: none Labs Pending at D/C: none Recommended Follow-up Testing/Procedures: none Planned Operative Procedure(s) after DC: none Hospital Course: See details under problems above. She was monitored with CIWA and treated with lorazepam PRN. Her withdrawal symptoms improved. Hospitalization was complicated by hypomagnesemia and a UTI, which were treated as noted above. Social work was able to work with her to get a plan for treatment and she will be heading directly to [place] after dismissal. - Patient Instructions Diet: Regular Diet as Tolerated Activity: As Tolerated Showering/Bathing: May Shower - Discharge Plan Home Medications: Home Meds FLUoxetine [PROzac] 10 mg PO DAILY 11/10/16 [History] Multivitamin [Daily Multiple Vitamin] 1 tab PO DAILY 11/10/16 [History] Acetaminophen [Tylenol Extra Strength] 500 mg PO Q6H PRN #0 tablet 11/11/16 [Rx] Albuterol [Ventolin HFA] 2 puff PO Q4H PRN 11/11/16 [History] Biotin 2,500 mcg PO DAILY 05/30/17 [History] Cholecalciferol (Vitamin D3) [D3-2000] 5,000 units PO DAILY 05/30/17 [History] Cyanocobalamin (Vitamin B-12) [B-12] 1,000 mcg PO DAILY 05/30/17 [History] Esomeprazole Magnesium [Nexium] 20 mg PO DAILY 05/31/17 [History] - Discharge Summary/Plan Comment DC Time >30 min.: No - General Info Date of Service: 06/03/17 Subjective Update: Feeling much better this morning. Is anxious but less shaky and not really nauseous. She did have a headache but that has improved with tylenol. - Review of Systems General: Reports: No Symptoms HEENT: Reports: No Symptoms Pulmonary: Reports: No Symptoms Cardiovascular: Reports: No Symptoms Gastrointestinal: Reports: No Symptoms Genitourinary: Reports: No Symptoms Musculoskeletal: Reports: No Symptoms Skin: Reports: No Symptoms - Patient Data Vitals - Most Recent: Last Vital Signs Temp 36.5 C 06/03/17 06:00 Pulse 63 06/03/17 06:00 Resp 16 06/03/17 06:00 BP 155/78 H 06/03/17 06:00 Pulse Ox 94 L 06/03/17 06:00 Weight - Most Recent: 77.111 kg I&O - Last 24 hours: Intake & Output 06/02/17 06/03/17 06/03/17 22:59 06:59 14:59 Intake Total 300 250 Output Total 1050 Balance 300 -800 Lab Results - Last 24 hrs: Laboratory Results - last 24 hr 06/03/17 06/03/17 Range/Units 06:30 06:30 WBC 3.2 L (4.0-10.0) x10^3/uL RBC 3.67 L (4.00-5.50) x10^6/uL Hgb 11.9 L (12.0-16.0) g/dL Hct 36.6 (33.0-47.0) % MCV 99.7 H (78.0-93.0) fL MCH 32.4 H (26.0-32.0) pg MCHC 32.5 (32.0-36.0) g/dL RDW Coeff of Bryant 13.8 (10.0-15.0) % Plt Count 137 (130-400) x10^3/uL Neut % (Auto) 51.4 (50.0-80.0) % Lymph % (Auto) 29.7 (25.0-50.0) % [place] % (Auto) 14.2 H (2.0-11.0) % Eos % (Auto) 4.1 H (0.0-4.0) % Baso % (Auto) 0.6 (0.2-1.2) % Sodium 141 (136-145) mmol/L Potassium 4.0 (3.5-5.1) mmol/L Chloride 103 (98-107) mmol/L Carbon Dioxide 32 (21-32) mmol/L BUN 8 (7-18) mg/dL Creatinine 0.8 (0.55-1.02) mg/dL Est Cr Clr Drug Dosing 52.49 mL/min Estimated GFR (MDRD) > 60 Glucose 104 (74-106) mg/dL Calcium 8.5 (8.5-10.1) mg/dL Magnesium 1.7 L (1.8-2.4) mg/dL Med Orders - Current: Current Medications Acetaminophen (Tylenol) 650 mg PO Q4H PRN PRN Reason: Pain (Mild 1-3)/fever Last Admin: 06/03/17 06:53 Dose: 650 mg Clonidine HCl (Catapres) 0.1 mg PO Q4H PRN PRN Reason: Agitation Fluoxetine HCl (Prozac) 40 mg PO DAILY [facility] Last Admin: 06/02/17 07:24 Dose: Not Given Haloperidol Lactate (Haldol) 2 mg IVPUSH Q4H PRN PRN Reason: Agitation Promethazine HCl 6.25 mg/ (Sodium Chloride) 100.25 mls @ 200 mls/hr IV Q6H PRN PRN Reason: Nausea/Vomiting Lorazepam (Ativan) 0 mg IV ASDIRECTED PRN; Protocol PRN Reason: Withdrawal Symptoms Last Admin: 06/03/17 06:54 Dose: 1 mg Nitrofurantoin Macrocrystals (Macrobid) 100 mg PO BID [facility] Last Admin: 06/02/17 20:06 Dose: 100 mg Ondansetron HCl (Zofran) 4 mg IV Q6H PRN PRN Reason: Nausea/Vomiting Last Admin: 06/02/17 22:30 Dose: 4 mg Pantoprazole Sodium (Protonix Iv) 40 mg IVPUSH Q24H [facility] Last Admin: 06/02/17 07:24 Dose: Not Given Sodium Chloride (Saline Flush) 10 ml FLUSH ASDIRECTED PRN PRN Reason: Keep Vein Open Discontinued Medications Fluoxetine HCl (Prozac) 20 mg PO DAILY [facility] Last Admin: 06/01/17 07:46 Dose: 20 mg Fluoxetine HCl (Prozac) 40 mg PO DAILY [facility] Last Admin: 06/01/17 08:16 Dose: Not Given Fluoxetine HCl (Prozac) 20 mg PO ONETIME ONE Stop: 06/01/17 08:16 Last Admin: 06/01/17 08:31 Dose: 20 mg Sodium Chloride (Normal Saline) 1,000 mls @ 999 mls/hr IV ONETIME ONE Stop: 05/30/17 20:55 Last Infusion: 05/30/17 20:55 Dose: Infused Magnesium Sulfate 2 gm/ Premix 50 mls @ 25 mls/hr IV ONETIME ONE Stop: 05/30/17 22:21 Last Admin: 05/30/17 21:00 Dose: 25 mls/hr Multivitamins/Minerals 10 ml/Folic Acid 1 mg/ Thiamine HCl 100 mg/ Sodium Chloride 1,011.2 mls @ 150 mls/hr IV Q24H [facility] Stop: 06/02/17 04:00 Last Admin: 06/01/17 20:25 Dose: 150 mls/hr Magnesium Sulfate 2 gm/ Premix 50 mls @ 25 mls/hr IV ONETIME ONE Stop: 06/01/17 09:51 Last Admin: 06/01/17 08:31 Dose: 25 mls/hr Magnesium Sulfate 2 gm/ Premix 50 mls @ 25 mls/hr IV ONETIME ONE Stop: 06/02/17 09:52 Last Admin: 06/02/17 08:11 Dose: 25 mls/hr Ondansetron HCl (Zofran) 4 mg IVPUSH ONETIME ONE Stop: 05/30/17 19:57 Last Admin: 05/30/17 20:15 Dose: 4 mg Pantoprazole Sodium (Protonix Iv) 40 mg IVPUSH ONETIME ONE Stop: 05/30/17 19:57 Last Admin: 05/30/17 20:18 Dose: 40 mg - Exam General: Reports: Alert, Cooperative, No Acute Distress HEENT: Reports: Pupils Equal, Pupils Reactive, Mucous Membr. Moist/[place] Neck: Reports: Supple, Trachea Midline, No Thyromegaly. Denies: Lymphadenopathy Lungs: Reports: Clear to Auscultation, Normal Respiratory Effort Cardiovascular: Reports: Regular Rate, Regular Rhythm, No Murmurs GI/Abdominal Exam: Normal Bowel Sounds, Soft, Non-Tender, No Organomegaly, No Distention, No Mass Extremities: Normal Inspection, Non-Tender, No Pedal Edema, Normal Capillary Refill Skin: Reports: Warm, Dry, Intact *Q Meaningful Use (DIS) - VTE *Q VTE Criteria *Q: - Stroke *Q Stroke Criteria *Q: - AMI *Q AMI Criteria *Q:
[2017-06-03] MEDS: Nitrofurantoin Monohydrate/Macrocrystalline 100 MG Cap PO SCH (07:53)
[2017-06-03] MEDS: FLUoxetine 20 MG Cap PO SCH (07:53)
[2017-06-03] MEDS: Pantoprazole 40 MG Vial IVPUSH SCH (07:54)
== END 2017-06-03 08:50 | disposition home or self-care (01) | DRG 897 ==
LOC: VM.ED 18:37 → VM.MS 20:55 → OBSVTOIN 06-01 07:36
PROVIDERS: ADMIT Nurse Practitioner Family; ATTEND Family Medicine
DX: F10.229 Alcohol dependence with intoxication, unspecified (principal); N39.0 Urinary tract infection, site not specified; N30.00 Acute cystitis without hematuria; F10.239 Alcohol dependence with withdrawal, unspecified; E86.0 Dehydration; R53.1 Weakness; E83.42 Hypomagnesemia; K21.9 Gastro-esophageal reflux disease without esophagitis; K52.9 Noninfective gastroenteritis and colitis, unspecified; I10 Essential (primary) hypertension; Z86.718 Personal history of other venous thrombosis and embolism; M85.80 Other specified disorders of bone density and structure, unspecified site; E53.8 Deficiency of other specified B group vitamins; D50.9 Iron deficiency anemia, unspecified; H91.92 Unspecified hearing loss, left ear; Z87.891 Personal history of nicotine dependence; F32.9 Major depressive disorder, single episode, unspecified; F41.9 Anxiety disorder, unspecified; Z79.899 Other long term (current) drug therapy; Z91.040 Latex allergy status
CPT/HCPCS: 36415 ×2; 80048 ×2; 80053; 80305; 81001; 82140; 82607; 82728; 82746; 83540; 83550; 83735 ×3; 84100; 85025 ×3; 85610; 93005; 94760; 96361; 96365; 96366 ×2; 96367; 96375 ×2; 96376 ×2; 99285; A9270 ×7; C9113 ×2; G0378; G0480 ×2; J2060 ×3; J2405; J3411 ×2; J7030 ×3; 96374; J3475

== ENCOUNTER 2020-04-26 19:42 | Emergency (ER) | payer MEDICARE, BC ==
[2020-04-26 19:52] VITALS: BP 113/72; PULSE 64
--- NOTE | 2020-04-26 20:00 | EDM.PDOC ---
ED HPI GENERAL MEDICAL PROBLEM - General Chief Complaint: Upper Extremity Injury/Pain Stated Complaint: FALL Time Seen by Provider: 04/26/20 19:55 Source of Information: Reports: Patient History Limitations: Reports: No Limitations - History of Present Illness INITIAL COMMENTS - FREE TEXT/NARRATIVE: Patient comes emergency department today with complaints of an injury to her le ft wrist and her left ankle. Earlier in the day the patient reports that she is quite a typically clumsy person. As she was walking she kind of tripped and sprained her ankle early in the morning. She then continued on with her day doing her daily chores. Later in the afternoon she tripped with the left ankle and fell landing on her left wrist. She has quite a bit of pain and swelling to the left dorsal aspect of the wrist. She denies any paresthesias to the left hand. She is able to flex and extend her wrist. She denies any other injury to her left upper extremity. She denies any head injury head neck or back pain. She denies any loss of consciousness. Left Wrist Pain Score (Numeric/FACES): 8 Left Ankle Pain Score (Numeric/FACES): 5 - Related Data Allergies Allergy/AdvReac Type Severity Reaction Status Date / Time bupropion [From Wellbutrin] Allergy Hives Verified 04/26/20 19:44 latex Allergy Rash Verified 04/26/20 19:44 Penicillins Allergy Cardiac Verified 04/26/20 19:44 Arrest Home Meds: Home Meds FLUoxetine [PROzac] 10 mg PO DAILY 11/10/16 [History] Multivitamin [Daily Multiple Vitamin] 1 tab PO DAILY 11/10/16 [History] Omeprazole 20 mg PO BIDAC #60 cap.cr 07/13/17 [Rx] Acetaminophen/HYDROcodone [Allred 325-5 MG] 1 tab PO Q4H #12 tablet 04/26/20 [Rx] Biotin 1 mg PO DAILY 04/26/20 [History] Calcium Carbonate 500 mg PO DAILY 04/26/20 [History] Cholecalciferol (Vitamin D3) [D3-2000] 5,000 units PO DAILY 04/26/20 [History] Ferrous Sulfate 325 mg PO DAILY 04/26/20 [History] Past Medical History HEENT History: Reports: Other (See Below) Other HEENT History: left ear drum loss of hearing Cardiovascular History: Reports: Blood Clots/VTE/DVT, Hypertension Other Cardiovascular History: hx of dvts, pvcs Gastrointestinal History: Reports: Chronic Diarrhea, Colon Polyp, GERD, Other (See Below) Other Gastrointestinal History: hx of gatric bypass Genitourinary History: Reports: UTI, Recurrent, Other (See Below) Other Genitourinary History: urethral stenosis, urethral diverticulum Musculoskeletal History: Reports: Other (See Below) Other Musculoskeletal History: osteopenia Psychiatric History: Reports: Addiction, Anxiety, Depression Endocrine/Metabolic History: Reports: Osteopenia Hematologic History: Reports: Anemia, B12 Deficiency, Iron Deficiency - Past Surgical History GI Surgical History: Reports: Bariatric Procedure, Cholecystectomy, Colonoscopy, Hernia Repair/Other, Other (See Below) Female Surgical History: Reports: Breast Reduction Endocrine Surgical History: Reports: None Social & Family History - Family History Family Medical History: Noncontributory - Tobacco Use Smoking Status *Q: Never Smoker - Caffeine Use Caffeine Use: Reports: None - Living Situation & Occupation Living situation: Reports: , Alone Occupation: Retired Review of Systems - Review of Systems Review Of Systems: Comprehensive ROS is negative, except as noted in HPI. ED EXAM, GENERAL - Physical Exam Exam: See Below Exam Limited By: No Limitations General Appearance: Alert, WD/WN, No Apparent Distress Respiratory/Chest: No Respiratory Distress, Lungs Clear Cardiovascular: Normal Peripheral Pulses, Regular Rate, Rhythm Peripheral Pulses: 2+: Radial (L), Radial (R), Posterior Tibial (L), Posterior Tibial (R), Dorsalis Pedis (L), Dorsalis Pedis (R) Extremities: No: Normal Inspection (Examination of the left ankle. There is no swelling bruising ecchymosis. There is no tenderness over the medial or lateral malleolus. There is no tenderness with talar tilt. Examination of the left wr ist the elbow and forearm is rather unremarkable. The left wrist has quite a bit of bruising and swelling on the dorsal aspect of the distal radius. She is able to flex and extend at the wrist. She is able to flex and extend at all the joints of the fingers appropriately. CMS is intact appropriately. There is no breaks in the skin.) Neurological: Alert, Oriented, Normal Cognition, No Motor/Sensory Deficits Skin Exam: Warm, Dry, Intact, Normal Color Lymphatic: No Adenopathy ED TRAUMA EXTREMITY PROCEDURES - Joint Reduction Left Wrist Sedation: Hematoma/Fracture Block Local Anesthesia - Lidocaine (Xylocaine): 1% Plain Local Anesthesia - Bupivicaine (Marcaine): 0.5% Plain Local Anesthetic Volume: Other (7mls) Pre-Procedure NV Status: Normal Post-Procedure NV Status: Normal Technique: Traction/Counter Traction Number of Attempts: 2 Post-Reduction Imaging: Other (minnimal improvement of impactions. ) Joint Reduction Complications: No - Splinting Left Upper Extremity Splint Site: left forearm Pre-Procedure NV Status: Normal Post-Procedure NV Status: Normal Splint Material: Fiberglass Splint Design: Sugar Tong Applied & Form Fitted By: Provider Provider Post-Splint Application NV Check: NV Status Normal, Good Position Complications: No Course - Vital Signs Last Recorded V/S: Last Vital Signs Temp 98.4 F 04/26/20 19:44 Pulse 64 04/26/20 19:44 Resp 18 04/26/20 19:44 BP 113/72 04/26/20 19:44 Pulse Ox 95 04/26/20 19:44 - Orders/Labs/Meds Orders: Active Orders 24 hr Category Date Time Status Wrist 2V Lt [CR] Stat Exams 04/26/20 22:02 Taken Wrist Comp Min 3V Lt [CR] Stat Exams 04/26/20 20:00 Taken Meds: Medications Discontinued Medications Generic Name Dose Route Start Last Admin Trade Name Freq PRN Reason Stop Dose Admin Hydrocodone Bitart/Acetaminophen 1 packet 04/26/20 22:44 04/26/20 22:55 Take Home: Acetam/Hydrocodon 325-5 Mg, 5 Pack PO 04/26/20 22:45 1 packet ONETIME ONE Administration Bupivacaine HCl 30 ml 04/26/20 21:39 04/26/20 22:00 Marcaine 0.5% INJECT 30 ml ASDIRECTED PRN Administration Other Clindamycin HCl 150 mg 04/26/20 21:28 Cleocin PO 04/26/20 21:29 ONETIME ONE Ibuprofen 600 mg 04/26/20 20:46 04/26/20 22:38 Motrin PO 04/26/20 20:47 Not Given NOW ONE Lidocaine HCl 30 ml 04/26/20 21:39 04/26/20 22:00 Xylocaine-Mpf 1% INJECT 04/26/20 21:40 30 ml ONETIME ONE Administration - Radiology Interpretation Free Text/Narrative:: X-ray of the left wrist shows a ulnar styloid fracture as well as a distal radius impacted fracture without any angulation. Also some concern from the radiologist about some widening of the scapholunate joint. - Re-Assessments/Exams Free Text/Narrative Re-Assessment/Exam: Really the patient refused anything for pain she cannot afford it and she took some ibuprofen prior to arrival. I offered an x-ray of the left wrist that she agreed to and refused the left ankle because she cannot afford it. Which actually I feel is okay for refusal is really it is pretty unremarkable in the physical exam and is not bothering her at this time. I spoke with Dr. [facility] from [facility] in [place] He did review the xray and okay with reduction of the left distal radius. He is unconcerned of the widening of the scapholunate joint. Talked at length with the patient about the impaction of this distal radius fracture. The best course of action would be moderate sedation so that I can appropriately reduce the joint. Although she refuses this as she feels that she cannot afford it. She understands that the best reduction of this would be completed with moderate sedation. She still denies that as a intervention at this time. She denies anything for pain for the reduction such as intranasal fentanyl or other options. I did offer a fracture block with the understanding unable to ensure that she will have excellent pain relief and also with the i nability to relax the muscles that may be more difficult for me to reduce this impacted distal radius fracture. She is understanding of these risk and benefits and consents. The area of the fracture was identified by palpation on the distal radius. It was cleansed with chlorhexidine and allowed to dry the appropriate time period. 1% lidocaine without epinephrine and 0.5% bupivacaine mixed in a 50-50 fashion. With the use of a 27-gauge needle at the site of fracture down to the periosteum I instilled approximately 7 mils of the above mixture verifying that there was no blood return each time with injection. CMS was intact afterwards and she had very good pain relief with this fracture block. After good verification of pain management with the fracture block with the use of manual traction distraction I attempted multiple times to reduce the fracture which I could feel by palpation would reduce but the minute that I would release any tension on it it would return. This is rather surprising to me as it does not look to be that unstable as it is not intra-articular. Postreduction x-ray showed minimal to some improvement of the impaction of the distal radius fracture as the alignment is still appropriate. I put her in a sugar tong splint at this time well-padded fiberglass sugar tong splint. In the position of anatomical neutral. CMS was intact after application. We will have her follow-up with orthopedics this week. She is comfortable with this plan and her questions are answered. We discussed the appropriate monitoring for circulation and sensation and motor function to the hand and she will return if there are any concerns. Departure - Departure Time of Disposition: 22:45 Disposition: Home, Self-Care 01 Clinical Impression: Fracture of radius and ulna Qualifiers: Encounter type: initial encounter Fracture type: closed Laterality: left Qualified Code(s): S52.92XA - Unspecified fracture of left forearm, initial encounter for closed fracture - Discharge Information Prescriptions: Acetaminophen/HYDROcodone [Allred 325-5 MG] 1 tab PO Q4H #12 tablet Instructions: RICE Therapy for Routine Care of Injuries, [id number], Closed Reduction for Wrist or Forearm, Care After, Pain Medicine Instructions, [id number] Referrals: Josefina Huang PA-C [Primary Care Provider] - Forms: ED Department Discharge Additional Instructions: Tylenol and or Ibuprofen as needed for pain. RICE therapy. See discharge instruction sheet. Sling at alll times. Do not get the splint went. If pain not controlled with above. Allred 5/325, 1 tab by mouth every 4-6 hrs with food as needed for pain. Caution sedation. Rx to Call [facility] [place] tuesday. [phone]. Dr Murphy, Rosana Thompson. Watch for appropriate circulation as shown in the ED. Return to the ED if new or worsening symptoms. Sepsis Event Note (ED) - Evaluation Sepsis Screening Result: No Definite Risk - My Orders Last 24 Hours: My Active Orders 04/26/20 20:00 Wrist Comp Min 3V Lt [CR] Stat 04/26/20 22:02 Wrist 2V Lt [CR] Stat - Assessment/Plan Last 24 Hours: My Active Orders 04/26/20 20:00 Wrist Comp Min 3V Lt [CR] Stat 04/26/20 22:02 Wrist 2V Lt [CR] Stat
[2020-04-26] MEDS ORDERED: Clindamycin HCl 150 MG Cap PO ONE (21:28)
[2020-04-26] MEDS: Bupivacaine 0.5% 30 ML SDV INJECT PRN (22:00)
[2020-04-26] MEDS: Lidocaine 1% 30 ML SDV INJECT ONE (22:00)
[2020-04-26] MEDS: Ibuprofen 200 MG Tab PO ONE (22:38)
[2020-04-26] MEDS: Take Home: Acetaminophen/HYDROcodone 325-5 MG, 5 Tab Pack PO ONE (22:55)
--- NOTE | 2020-04-28 11:33 | CR ---
[id number] RAD/RAD Wrist Left 2V; [id number] RAD/RAD Wrist Left 3V Min Exam: RAD Wrist Left 2V, RAD Wrist Left 3V Min Indication:POST REDUCTION Comparison: No prior imaging for comparison. Discussion: Acute complete transversely orientated distal radial metaphysis fracture. Fracture is nondisplaced but demonstrates some impaction on the lateral view. No definitive evidence of intra-articular extension. Acute nondisplaced fracture at the base of the ulnar styloid. No other acute findings. 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 Diffuse bone demineralization. No significant change in appearance following reduction. Impression: Acute distal radius and ulna fractures status post closed reduction. Mohinder Rooney MD 04/28/20 1132 Thank you for allowing us to participate in the care of your patient.
== END 2020-04-26 23:03 | disposition home or self-care (01) ==
LOC: VM.ED 19:42
DX: S52.502A Unspecified fracture of the lower end of left radius, initial encounter for closed fracture (principal); S52.602A Unspecified fracture of lower end of left ulna, initial encounter for closed fracture; I10 Essential (primary) hypertension; K21.9 Gastro-esophageal reflux disease without esophagitis; F41.9 Anxiety disorder, unspecified; F32.9 Major depressive disorder, single episode, unspecified; Z88.8 Allergy status to other drugs, medicaments and biological substances; Z88.0 Allergy status to penicillin; Z91.040 Latex allergy status; Z79.899 Other long term (current) drug therapy; W01.0XXA Fall on same level from slipping, tripping and stumbling without subsequent striking against object, initial encounter
CPT/HCPCS: 25605; 29125; 73100-LT; 73110-LT; 99283-25; 99284; A9270-GY; J2001; J3490

== ENCOUNTER 2020-08-15 21:32 | Observation (INO) | payer MEDICARE, BC ==
[2020-08-15] MEDS ORDERED: MVI, Adult with Vitamin K 10 ML, Folic Acid 1 MG, Thiamine 100 MG in Sodium Chloride 0.... IV STA ×4 (22:07)
[2020-08-15] MEDS ORDERED: Pantoprazole 40 MG Vial IVPUSH ONE (22:07)
[2020-08-15] MEDS ORDERED: diphenhydrAMINE 50 MG/ML SDV IVPUSH ONE (22:07)
[2020-08-15] MEDS ORDERED: Ondansetron 4 MG/2 ML SDV IV ONE (22:07)
--- NOTE | 2020-08-15 22:16 | EDM.PDOC ---
ED HPI GENERAL MEDICAL PROBLEM - General Stated Complaint: ER Time Seen by Provider: 08/15/20 21:40 Source of Information: Reports: Patient History Limitations: Reports: No Limitations - History of Present Illness INITIAL COMMENTS - FREE TEXT/NARRATIVE: Patient comes emergency department today for help with alcohol detox and alcoholism. This patient is a chronic alcoholic who drinks alcohol on a daily basis. She drinks about a 1.75 of Bacardi a day. She was sober for many years about 4 years ago. She has been drinking heavily over the past couple years. She is getting to the point where she cannot drink anymore she does not want to drink anymore. She does have difficulty with withdrawals she gets the shakes nausea vomiting and diarrhea. She did drink 3 alcoholic drinks prior to coming to the emergency department today. She denies any recreational drug use. She does complain of some nausea no vomiting. She has no hematemesis. No chest pain no shortness of breath or difficulty breathing. She has chronic diarrhea. No hematuria dysuria or urinary frequency. She has not eaten any food in about 4 to 5 days. She has not showered in over a week. 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 She is interested in alcohol treatment although she knows she needs to detox before she can go because of her high alcohol usage. Her first thing that she does when she gets up in the morning is have 2-3 hard drinks of alcohol before she even gets out of bed. No Covid exposure no Covid symptoms Abdominal Pain Score (Numeric/FACES): 2 - Related Data Allergies Allergy/AdvReac Type Severity Reaction Status Date / Time bupropion [From Wellbutrin] Allergy Hives Verified 08/16/20 00:17 latex Allergy Rash Verified 08/16/20 00:17 Penicillins Allergy Cardiac Verified 08/16/20 00:17 Arrest Home Meds: Home Meds FLUoxetine [PROzac] 10 mg PO DAILY 11/10/16 [History] Multivitamin [Daily Multiple Vitamin] 1 tab PO DAILY 11/10/16 [History] Omeprazole 20 mg PO BIDAC #60 cap.cr 07/13/17 [Rx] Biotin 1 mg PO DAILY 04/26/20 [History] Calcium Carbonate 500 mg PO DAILY 04/26/20 [History] Cholecalciferol (Vitamin D3) [D3-2000] 5,000 units PO DAILY 04/26/20 [History] Ferrous Sulfate 325 mg PO DAILY 04/26/20 [History] Past Medical History HEENT History: Reports: Other (See Below) Other HEENT History: left ear drum loss of hearing Cardiovascular History: Reports: Blood Clots/VTE/DVT, Hypertension Other Cardiovascular History: hx of dvts, pvcs Gastrointestinal History: Reports: Chronic Diarrhea, Colon Polyp, GERD, Other (See Below) Other Gastrointestinal History: hx of gatric bypass Genitourinary History: Reports: UTI, Recurrent, Other (See Below) Other Genitourinary History: urethral stenosis, urethral diverticulum Musculoskeletal History: Reports: Other (See Below) Other Musculoskeletal History: osteopenia Psychiatric History: Reports: Addiction, Anxiety, Depression Endocrine/Metabolic History: Reports: Osteopenia Hematologic History: Reports: Anemia, B12 Deficiency, Iron Deficiency - Past Surgical History GI Surgical History: Reports: Bariatric Procedure, Cholecystectomy, Colonoscopy, Hernia Repair/Other, Other (See Below) Female Surgical History: Reports: Breast Reduction Endocrine Surgical History: Reports: None Social & Family History - Family History Family Medical History: No Pertinent Family History - Caffeine Use Caffeine Use: Reports: None - Living Situation & Occupation Living situation: Reports: , Alone Occupation: Retired ED ROS GENERAL - Review of Systems Review Of Systems: Comprehensive ROS is negative, except as noted in HPI. ED EXAM, GENERAL - Physical Exam Exam: See Below Free Text/Narrative:: This is a very alert interactive female who appears somewhat disheveled. Her make-up is not done. She does not appear to be intoxicated. Her speech is clear and articulate. Exam Limited By: No Limitations General Appearance: Alert, WD/WN, No Apparent Distress Eye Exam: Bilateral Eye: EOMI, PERRL Ears: Normal External Exam, Normal TMs Nose: Normal Inspection, Normal Mucosa Throat/Mouth: Normal Inspection, Normal Lips, Normal Teeth, Normal Voice Head: Atraumatic, Normocephalic Neck: Normal Inspection, Supple, Non-Tender Respiratory/Chest: No Respiratory Distress, Lungs Clear, Normal Breath Sounds, No Accessory Muscle Use, Chest Non-Tender Cardiovascular: Normal Peripheral Pulses, Regular Rate, Rhythm Peripheral Pulses: 2+: Radial (L), Radial (R), Posterior Tibial (L), Posterior Tibial (R), Dorsalis Pedis (L), Dorsalis Pedis (R) GI/Abdominal: Normal Bowel Sounds, Soft, Non-Tender, No Organomegaly, No Mass (Female) Exam: Deferred Rectal (Female) Exam: Deferred Back Exam: Normal Inspection, Full Range of Motion Extremities: Normal Inspection, Normal Range of Motion, Normal Capillary Refill Neurological: Alert, Oriented, CN II-XII Intact, Normal Cognition, No Motor/S ensory Deficits Psychiatric: Normal Affect, Normal Mood Skin Exam: Warm, Dry, Intact, Normal Color, No Rash Lymphatic: No Adenopathy Course - Vital Signs Last Recorded V/S: Last Vital Signs Temp 97.8 F 08/16/20 09:30 Pulse 89 08/16/20 09:30 Resp 20 08/16/20 09:30 BP 141/63 H 08/16/20 09:30 Pulse Ox 98 08/16/20 09:30 - Orders/Labs/Meds Orders: Active Orders 24 hr Category Date Time Status Sodium Chloride 0.9% [Saline Flush] Med 08/15/20 22:06 Active 10 ml FLUSH ASDIRECTED PRN Peripheral IV Insertion Adult [OM.PC] Stat Oth 08/15/20 22:06 Ordered Medication Orders Cholecalciferol (Vitamin D3) 125 mcg PO DAILY COUNTS INCLUDE 234 BEDS AT THE [facility] Multivitamins/Minerals 1 tab/Thiamine HCl 100 mg/ Folic Acid 1 mg/ Magnesium Oxide 400 mg 0 tab PO DAILY COUNTS INCLUDE 234 BEDS AT THE [facility] Diphenhydramine HCl (Benadryl) 25 mg IVPUSH Q6H PRN PRN Reason: Nausea/Vomiting Ferrous Sulfate (Ferrous Sulfate) 325 mg PO DAILY COUNTS INCLUDE 234 BEDS AT THE [facility] Last Admin: 08/16/20 07:34 Dose: 325 mg Documented by: LETY Fluoxetine HCl (Prozac) 10 mg PO DAILY COUNTS INCLUDE 234 BEDS AT THE [facility] Last Admin: 08/16/20 07:34 Dose: 10 mg Documented by: LETY Lactated Ringer's (Ringers, Lactated) 1,000 mls @ 500 mls/hr IV ASDIRECTED COUNTS INCLUDE 234 BEDS AT THE [facility] Last Admin: 08/16/20 01:49 Dose: 500 mls/hr Documented by: DL Dextrose/Sodium Chloride (Dextrose 5%-Normal Saline) 1,000 mls @ 150 mls/hr IV ASDIRECTED COUNTS INCLUDE 234 BEDS AT THE [facility] Last Admin: 08/16/20 03:49 Dose: 150 mls/hr Documented by: DL Lorazepam (Ativan) 0.5 mg PO TID COUNTS INCLUDE 234 BEDS AT THE [facility] Last Admin: 08/16/20 07:34 Dose: 0.5 mg Documented by: LETY Lorazepam (Ativan) 0 mg IV ASDIRECTED PRN; Protocol PRN Reason: Withdrawal Symptoms Last Admin: 08/16/20 07:01 Dose: 2 mg Documented by: DL Metoprolol Tartrate (Lopressor) 25 mg PO BID COUNTS INCLUDE 234 BEDS AT THE [facility] Naltrexone HCl (Naltrexone) 50 mg PO DAILY COUNTS INCLUDE 234 BEDS AT THE [facility] Non-Formulary Medication (Biotin [Biotin]) 1 mg PO DAILY COUNTS INCLUDE 234 BEDS AT THE [facility] Calcium Caltrate (600mg +D3Pt Own) 1 mg PO DAILY COUNTS INCLUDE 234 BEDS AT THE [facility] Ondansetron HCl (Zofran) 4 mg IV Q6H PRN PRN Reason: Nausea/Vomiting Pantoprazole Sodium (Protonix Iv) 40 mg IVPUSH Q12H COUNTS INCLUDE 234 BEDS AT THE [facility] Last Admin: 08/16/20 05:18 Dose: 40 mg Documented by: DL Sodium Chloride (Saline Flush) 10 ml FLUSH ASDIRECTED PRN PRN Reason: Keep Vein Open Sucralfate (Carafate) 1 gm PO QIDACANDBED COUNTS INCLUDE 234 BEDS AT THE [facility] Last Admin: 08/16/20 07:01 Dose: 1 gm Documented by: DL Labs: Laboratory Tests 08/15/20 08/15/20 08/15/20 Range/Units 22:30 22:30 22:30 WBC 4.5 (4.0-10.0) x10^3/uL RBC 4.59 (4.00-5.50) x10^6/uL Hgb 15.7 D (12.0-16.0) g/dL Hct 45.0 (33.0-47.0) % MCV 98.0 H D (78.0-93.0) fL MCH 34.2 H (26.0-32.0) pg MCHC 34.9 (32.0-36.0) g/dL RDW Coeff of Bryant 12.2 (10.0-15.0) % Plt Count 201 (130-400) x10^3/uL Neut % (Auto) 53.0 (50.0-80.0) % Lymph % (Auto) 35.3 (25.0-50.0) % [place] % (Auto) 9.2 (2.0-11.0) % Eos % (Auto) 1.8 (0.0-4.0) % Baso % (Auto) 0.7 (0.2-1.2) % Sodium 139 (136-145) mmol/L Potassium 4.0 (3.5-5.1) mmol/L Chloride 97 L (98-107) mmol/L Carbon Dioxide 27 (21-32) mmol/L Anion Gap 19.0 (10-20) mmol/L BUN 8 (7-18) mg/dL Creatinine 0.9 (0.55-1.02) mg/dL Est Cr Clr Drug Dosing TNP Estimated GFR (MDRD) > 60 Glucose 97 (74-106) mg/dL Lactic Acid 5.5 H* (0.4-2.0) mmol/L Calcium 9.2 (8.5-10.1) mg/dL Corrected Calcium 9.36 (8.5-10.1) mg/dL Magnesium 1.7 L (1.8-2.4) mg/dL Total Bilirubin 1.0 (0.2-1.0) mg/dL AST 197 H (15-37) U/L ALT 101 H (14-59) U/L Alkaline Phosphatase 115 (46-116) U/L C-Reactive Protein < 0.2 (<=0.9) mg/dL Total Protein 7.5 (6.4-8.2) g/dL Albumin 3.8 (3.4-5.0) g/dL Globulin 3.7 Albumin/Globulin Ratio 1.03 Lipase 100 (73-393) U/L Ethyl Alcohol 201 H (0-3) mg/dL Meds: Medications Generic Name Dose Route Start Last Admin Trade Name Freq PRN Reason Stop Dose Admin Cholecalciferol 125 mcg 08/16/20 08:00 Vitamin D3 PO DAILY LON Multivitamins/Minerals 1 tab/ 0 tab 08/16/20 00:45 Thiamine HCl 100 mg/ Folic PO Acid 1 mg/ Magnesium Oxide 400 DAILY LON mg Diphenhydramine HCl 25 mg 08/16/20 00:32 Benadryl IVPUSH Q6H PRN Nausea/Vomiting Ferrous Sulfate 325 mg 08/16/20 08:00 08/16/20 07:34 Ferrous Sulfate PO 325 mg DAILY LON Administration Fluoxetine HCl 10 mg 08/16/20 08:00 08/16/20 07:34 Prozac PO 10 mg DAILY LON Administration Lactated Ringer's 1,000 mls @ 500 mls/hr 08/15/20 23:45 08/16/20 01:49 Ringers, Lactated IV 500 mls/hr ASDIRECTED LON Administration Dextrose/Sodium Chloride 1,000 mls @ 150 mls/hr 08/16/20 00:45 08/16/20 03:49 Dextrose 5%-Normal Saline IV 150 mls/hr ASDIRECTED LON Administration Lorazepam 0.5 mg 08/16/20 08:00 08/16/20 07:34 Ativan PO 0.5 mg TID LON Administration Lorazepam 0 mg 08/16/20 00:33 08/16/20 07:01 Ativan IV 2 mg ASDIRECTED PRN Administration Withdrawal Symptoms Protocol Metoprolol Tartrate 25 mg 08/16/20 08:45 Lopressor PO BID LON Naltrexone HCl 50 mg 08/16/20 08:45 Naltrexone PO DAILY LON Non-Formulary Medication 1 mg 08/16/20 08:00 Biotin [Biotin] PO DAILY LON Calcium Caltrate 1 mg 08/16/20 08:00 600mg +D3Pt Own PO DAILY LON Ondansetron HCl 4 mg 08/16/20 00:28 Zofran IV Q6H PRN Nausea/Vomiting Pantoprazole Sodium 40 mg 08/16/20 01:00 08/16/20 05:18 Protonix Iv IVPUSH 40 mg Q12H LON Administration Sodium Chloride 10 ml 08/15/20 22:06 Saline Flush FLUSH ASDIRECTED PRN Keep Vein Open Sucralfate 1 gm 08/16/20 07:00 08/16/20 07:01 Carafate PO 1 gm QIDACANDBED LON Administration Discontinued Medications Generic Name Dose Route Start Last Admin Trade Name Freq PRN Reason Stop Dose Admin Diphenhydramine HCl 25 mg 08/15/20 22:07 08/15/20 22:10 Benadryl IVPUSH 08/15/20 22:08 25 mg ONETIME ONE Administration Folic Acid Confirm 08/15/20 22:36 08/16/20 00:38 Folic Acid Administered 08/15/20 22:37 Not Given Dose 50 mg .ROUTE .STK-MED ONE Multivitamins/Minerals 10 ml/ 1,011.2 mls @ 150 mls/hr 08/15/20 22:07 08/15/20 22:31 Folic Acid 1 mg/ Thiamine HCl IV 08/16/20 04:51 150 mls/hr 100 mg/ Sodium Chloride NOW STA Administration Lactated Ringer's 1,000 mls @ 150 mls/hr 08/15/20 23:45 Ringers, Lactated IV ASDIRECTED LON Lorazepam 1 mg 08/15/20 22:52 08/15/20 22:55 Ativan IVPUSH 08/15/20 22:53 1 mg STAT ONE Administration Magnesium Oxide 400 mg 08/16/20 00:33 08/16/20 07:39 Magnesium Oxide PO 08/16/20 00:34 400 mg DAILY ONE Administration Multivitamins/Minerals Confirm 08/15/20 22:43 08/16/20 00:39 Infuvite Adult Administered 08/15/20 22:44 Not Given Dose 10 ml .ROUTE .STK-MED ONE Multivitamins/Minerals Confirm 08/15/20 22:45 08/16/20 00:39 Infuvite Adult Administered 08/15/20 22:46 Not Given Dose 10 ml .ROUTE .STK-MED ONE Ondansetron HCl 4 mg 08/15/20 22:07 08/15/20 22:15 Zofran IV 08/15/20 22:08 4 mg ONETIME ONE Administration Pantoprazole Sodium 80 mg 08/15/20 22:07 08/15/20 22:19 Protonix Iv IVPUSH 08/15/20 22:08 80 mg ONETIME ONE Administration Thiamine HCl Confirm 08/15/20 22:36 08/16/20 00:41 Vitamin B-1 Administered 08/15/20 22:37 Not Given Dose 200 mg .ROUTE .STK-MED ONE - Re-Assessments/Exams Free Text/Narrative Re-Assessment/Exam: 08/15/20 The patient initially was given a banana bag IV as she is quite nauseated. Benadryl 25 mg IV push. Zofran 4 mg IV push. Ativan 1 mg IV push as she is starting to become quite shaky already and anxious. Protonix 80 mg IV push. Hemoglobin 15.7 concerning for some hemoconcentration. She has an elevated MCV and MCH consistent with long-term alcohol use. Potassium 4.0 sodium 139 creatinine is good at 0.9 with a BUN of 8. Glucose is 97. Lactic acid is 5.5 this is most likely due to dehydration there is no signs of infection at this time. Magnesium 1.7. Total bili 1.0 AST 197 ALT 101 lipase 100. Urinalysis is negative for infectious process. And urine drug screen is negative for any other substances. Her alcohol is 201. The patient did feel quite a bit better after the above therapy. She has a very heavy daily drinker and I have concerns for her having a very difficult time with detoxing. Surprisingly her electrolytes are actually fairly normal. Her lactic acid is most likely due to dehydration. We will admit her into the hospital under my services for observation. For alcohol detox with CIWA scoring. We also treat her for alcoholic gastritis. I had a rather long discussion with her and she really appears to be very interested in quitting drinking yet again as she was very happy with her sober life a couple of years ago. She wants to go to the [facility] following inpatient detox as this has worked well for her in the past. She is unable to go to any active treatment centers as she really needs keep her job and she has quite a bit of support from her family at home. She is comfortable with this plan of admission under observation at this time she is comfortable with that and her questions are answered. Departure - Departure Time of Disposition: 22:50 Disposition: Admitted As Inpatient 64 Clinical Impression: Alcohol abuse with intoxication, Dehydration Alcoholic gastritis Qualifiers: Chronicity: acute Gastritis bleeding: presence of bleeding unspecified Qualified Code(s): K29.20 - Alcoholic gastritis without bleeding - Discharge Information - Problem List & Annotations (1) Alcohol abuse with intoxication SNOMED Code(s): 40466297 Code(s): F10.129 - ALCOHOL ABUSE WITH INTOXICATION, UNSPECIFIED Status: Acute Priority: High Current Visit: Yes Annotation/Comment:: She is felt to be low risk for significant withdrawal symptoms given short duration of alcohol use (6 days) this time. She has done well and has only required 3 doses of lorazepam during her hospitalization. She had IV fluids initially but then has done well with PO intake. She has arranged admission to the residential program again today immediately upon her dismissal. She will not be started on any medications at this time but that can be addressed at follow-up. I have recommended she follow up with her PCP within 2 days of dismissal from the program. (2) Alcoholic gastritis SNOMED Code(s): 3983246 Code(s): K29.20 - ALCOHOLIC GASTRITIS WITHOUT BLEEDING Status: Acute Current Visit: Yes Qualifiers: Chronicity: acute Gastritis bleeding: presence of bleeding unspecified Qualified Code(s): K29.20 - Alcoholic gastritis without bleeding (3) Dehydration SNOMED Code(s): 43761104 Code(s): E86.0 - DEHYDRATION Status: Acute Priority: Medium Current Visit: No - Problem List Review Problem List Initiated/Reviewed/Updated: Yes - My Orders Last 24 Hours: My Active Orders 08/15/20 22:06 Sodium Chloride 0.9% [Saline Flush] 10 ml FLUSH ASDIRECTED PRN Peripheral IV Insertion Adult [OM.PC] Stat - Assessment/Plan Admission H&P: Please use this note as an admission H&P Last 24 Hours: My Active Orders 08/15/20 22:06 Sodium Chloride 0.9% [Saline Flush] 10 ml FLUSH ASDIRECTED PRN Peripheral IV Insertion Adult [OM.PC] Stat Assessment:: Assessment/plan. Admit the patient under my service under observation for alcohol detox and treatment for alcoholic gastritis. 1. Acute alcohol intoxication in the presence of alcoholism with concerns of difficult withdrawal. She has no history of seizures. She will get a daily oral banana pack. She will give Protonix 40 mg IV twice daily. Also add Carafa te 4 times a day. Benadryl as needed for nausea. Zofran as needed for nausea. She will also get Ativan scheduled 0.5 mg p.o. 3 times daily. And she will have IV CIWA scoring as needed Ativan. We will start her on naltrexone she has no history of opioid abuse. 50 mg p.o. daily. We also start her on metoprolol 25 mg as she has quite a bit of palpitations and this will help with her shakiness as well. We will have her on telemetry and continuous pulse oximetry. Social service consult will be placed although this is over the weekend and will most likely not be available. I will discuss this case also with the crisis center at the [facility] once she has detoxed we should be able to get her there to continue her outpatient treatment for her chronic alcoholism. #2 dehydration. This is due to the long-term alcohol abuse and poor oral intake. Most likely the cause of her lactic acidosis. We will trend her lactic acid. She received a liter of banana bag in the emergency department. We will give her a liter of LR 1 L on the floor 500 mils an hour for 2 hours. We will then start her on D5 normal saline at a continuous infusion until she is well- hydrated as well as taking in good caloric intake as she has not had any food in about 3 to 4 days. Diet as tolerated. #3 alcoholic gastritis without any presence of bleeding. As above she will be on Protonix 40 mg IV twice daily. Will start on Carafate 4 times daily AC in bed. Diet as tolerated. Will observe for any gastric bleeding. VTE. Short stay TESHA stockings. Sepsis no signs of infection at this time with a normal white blood cell count as well as no fever. Her lactic acid is quite elevated at 5.2 although this is most likely related to her dehydration we will trend this throughout the night and during her stay as well and observe for any signs of infection. CODE STATUS full.
[2020-08-15] MEDS ORDERED: Thiamine 200 MG/2 ML MDV ONE (22:36)
[2020-08-15] MEDS ORDERED: Folic Acid 50 MG/10 ML Bulk Vial ONE (22:36)
[2020-08-15] MEDS ORDERED: MVI, Adult with Vitamin K 10 ML SDV ONE ×2 (22:43→22:45)
[2020-08-15] MEDS ORDERED: LORazepam 2 MG/ML SDV IVPUSH ONE (22:52)
[2020-08-15 23:13] LABS: CHLORIDE,CL 97 mmol/L (98-107); SODIUM,NA 139 mmol/L (136-145)
[2020-08-15] MEDS ORDERED: Lactated Ringers 1,000 ML IV SCH ×2 (23:45)
[2020-08-16] MEDS ORDERED: Ondansetron 4 MG/2 ML SDV IV PRN (00:28)
[2020-08-16] MEDS ORDERED: diphenhydrAMINE 50 MG/ML SDV IVPUSH PRN (00:32)
[2020-08-16] MEDS ORDERED: Magnesium Oxide 400 MG Tab PO ONE (00:33)
[2020-08-16] MEDS ORDERED: LORazepam 2 MG/ML SDV IV PRN (00:33)
[2020-08-16 02:02] LABS: BARBITURATE SCREEN,URINE NEGATIVE (NEGATIVE); BENZODIAZEPINES SCREEN,URINE NEGATIVE (NEGATIVE); EDDP,URINE SCREEN NEGATIVE (NEGATIVE); METHAMPHETAMINE SCREEN, URINE NEGATIVE (NEGATIVE); TCA SCREEN,URINE NEGATIVE (NEGATIVE); THC SCREEN,URINE 50 NG/ML NEGATIVE (NEGATIVE)
[2020-08-16] MEDS: Dextrose 5%-0.9% NaCl 1,000 ML IV SCH ×2 (03:49→18:08)
[2020-08-16] MEDS: Pantoprazole 40 MG Vial IVPUSH SCH ×2 (05:18→12:37)
[2020-08-16] MEDS: Sucralfate 1 GM Tab PO SCH ×4 (07:01→19:55)
[2020-08-16] MEDS: LORazepam 0.5 MG Tab PO SCH ×3 (07:34→19:54)
[2020-08-16] MEDS: Ferrous Sulfate 325 MG Tab PO SCH (07:34)
[2020-08-16] MEDS: FLUOXETINE 10 MG PO SCH (07:34)
[2020-08-16] MEDS ORDERED: Non-Formulary Medication 1 Each (Biotin [Biotin] 1 MG) PO SCH (08:00)
[2020-08-16 09:36] LABS: ANION GAP 10.3 mmol/L (10-20); CHLORIDE,CL 103 mmol/L (98-107); SODIUM,NA 139 mmol/L (136-145)
[2020-08-16] MEDS: Multivitamins w-Iron/Ca/FA/Min 1 TAB, Thiamine 100 MG, Folic Acid 1 MG, Magnesium Oxide... PO SCH ×6 (11:10→11:11)
[2020-08-16] MEDS: CALCIUM CARBONATE PO SCH (11:12)
[2020-08-16] MEDS: [UNRECOGNIZED DRUG - OTHER] PO SCH (11:12)
[2020-08-16] MEDS: CHOLECALCIFEROL PO SCH (11:12)
[2020-08-16] MEDS: Metoprolol Tartrate 25 MG Tab PO SCH ×2 (11:16→19:55)
[2020-08-16] MEDS: Naltrexone 50 MG Tab PO SCH (11:16)
[2020-08-16] MEDS: Cholecalciferol (Vitamin D3) 25 MCG Tab PO SCH (11:16)
[2020-08-16] MEDS: Loperamide 2 MG Cap PO PRN (18:47)
--- NOTE | 2020-08-16 19:10 | PCM.PN ---
- General Info Date of Service: 08/16/20 Subjective Update: Patient slept quite well through the night. She still has some uneasiness of her stomach. Some nausea. But no vomiting. She has some shakiness to her extremities. No hallucinations delusions confusions or seizure like activity. No chest pain no shortness of breath or difficulty breathing. No cough or congestion. No abdominal pain. No hematuria dysuria or urinary frequency. She has had a couple bouts of diarrhea which is very common for her when she is going through withdrawal. She has not been on any antibiotics recently. No blood in her stools. Functional Status: Reports: Pain Controlled - Patient Data Vitals - Most Recent: Last Vital Signs Temp 97.6 F 08/16/20 17:06 Pulse 76 08/16/20 17:06 Resp 16 08/16/20 17:06 BP 141/50 H 08/16/20 17:06 Pulse Ox 97 08/16/20 17:06 Weight - Most Recent: 194 lb 6.458 oz I&O - Last 24 Hours: Intake & Output 08/16/20 08/16/20 08/16/20 06:59 14:59 22:59 Intake Total 115 539 5227 Output Total 1700 Balance -[phone] Lab Results Last 24 Hours: Laboratory Results - last 24 hr 08/15/20 08/15/20 08/15/20 Range/Units 22:30 22:30 22:30 WBC 4.5 (4.0-10.0) x10^3/uL RBC 4.59 (4.00-5.50) x10^6/uL Hgb 15.7 D (12.0-16.0) g/dL Hct 45.0 (33.0-47.0) % MCV 98.0 H D (78.0-93.0) fL MCH 34.2 H (26.0-32.0) pg MCHC 34.9 (32.0-36.0) g/dL RDW Coeff of Bryant 12.2 (10.0-15.0) % Plt Count 201 (130-400) x10^3/uL Neut % (Auto) 53.0 (50.0-80.0) % Lymph % (Auto) 35.3 (25.0-50.0) % [place] % (Auto) 9.2 (2.0-11.0) % Eos % (Auto) 1.8 (0.0-4.0) % Baso % (Auto) 0.7 (0.2-1.2) % Sodium 139 (136-145) mmol/L Potassium 4.0 (3.5-5.1) mmol/L Chloride 97 L (98-107) mmol/L Carbon Dioxide 27 (21-32) mmol/L Anion Gap 19.0 (10-20) mmol/L BUN 8 (7-18) mg/dL Creatinine 0.9 (0.55-1.02) mg/dL Est Cr Clr Drug Dosing TNP Estimated GFR (MDRD) > 60 Glucose 97 (74-106) mg/dL Lactic Acid 5.5 H* (0.4-2.0) mmol/L Calcium 9.2 (8.5-10.1) mg/dL Corrected Calcium 9.36 (8.5-10.1) mg/dL Magnesium 1.7 L (1.8-2.4) mg/dL Total Bilirubin 1.0 (0.2-1.0) mg/dL AST 197 H (15-37) U/L ALT 101 H (14-59) U/L Alkaline Phosphatase 115 (46-116) U/L C-Reactive Protein < 0.2 (<=0.9) mg/dL Total Protein 7.5 (6.4-8.2) g/dL Albumin 3.8 (3.4-5.0) g/dL Globulin 3.7 Albumin/Globulin Ratio 1.03 Lipase 100 (73-393) U/L Urine Color (YELLOW) Urine Appearance (CLEAR) Urine pH (5.0-8.0) Ur Specific [place] Urine Protein (NEGATIVE) mg/dL Urine Glucose (UA) (NEGATIVE) mg/dL Urine Ketones (NEGATIVE) mg/dL Urine Occult Blood (NEGATIVE) Urine Nitrite (NEGATIVE) Urine Bilirubin (NEGATIVE) Urine Urobilinogen (0.2) EU/dL Ur Leukocyte Esterase (NEGATIVE) Urine Opiates Screen (NEGATIVE) Ur Buprenorphine Scrn (NEGATIVE) Ur Oxycodone Screen (NEGATIVE) Ur EDDP (Meth Metab) (NEGATIVE) Urine Methadone Screen (NEGATIVE) Ur Barbiturates Screen (NEGATIVE) Ur Tricyclics Screen (NEGATIVE) Ur Phencyclidine Scrn (NEGATIVE) Ur Amphetamine Screen (NEGATIVE) U Methamphetamines Scrn (NEGATIVE) Urine MDMA Screen (NEGATIVE) U Benzodiazepines Scrn (NEGATIVE) U Cocaine Metab Screen (NEGATIVE) U Marijuana (THC) Screen (NEGATIVE) Ethyl Alcohol 201 H (0-3) mg/dL SARS CoV-2 RNA Rapid JAMILAH (NEGATIVE) 08/15/20 08/16/20 08/16/20 Range/Units 23:15 00:15 00:15 WBC (4.0-10.0) x10^3/uL RBC (4.00-5.50) x10^6/uL Hgb (12.0-16.0) g/dL Hct (33.0-47.0) % MCV (78.0-93.0) fL MCH (26.0-32.0) pg MCHC (32.0-36.0) g/dL RDW Coeff of [place] (10.0-15.0) % Plt Count (130-400) x10^3/uL Neut % (Auto) (50.0-80.0) % Lymph % (Auto) (25.0-50.0) % [place] % (Auto) (2.0-11.0) % Eos % (Auto) (0.0-4.0) % Baso % (Auto) (0.2-1.2) % Sodium (136-145) mmol/L Potassium (3.5-5.1) mmol/L Chloride (98-107) mmol/L Carbon Dioxide (21-32) mmol/L Anion Gap (10-20) mmol/L BUN (7-18) mg/dL Creatinine (0.55-1.02) mg/dL Est Cr Clr Drug Dosing Estimated GFR (MDRD) Glucose (74-106) mg/dL Lactic Acid (0.4-2.0) mmol/L Calcium (8.5-10.1) mg/dL Corrected Calcium (8.5-10.1) mg/dL Magnesium (1.8-2.4) mg/dL Total Bilirubin (0.2-1.0) mg/dL AST (15-37) U/L ALT (14-59) U/L Alkaline Phosphatase (46-116) U/L C-Reactive Protein (<=0.9) mg/dL Total Protein (6.4-8.2) g/dL Albumin (3.4-5.0) g/dL Globulin Albumin/Globulin Ratio Lipase (73-393) U/L Urine Color Yellow (YELLOW) Urine Appearance Clear (CLEAR) Urine pH 6.5 (5.0-8.0) Ur Specific [place] 1.010 Urine Protein Negative (NEGATIVE) mg/dL Urine Glucose (UA) Negative (NEGATIVE) mg/dL Urine Ketones Negative (NEGATIVE) mg/dL Urine Occult Blood Negative (NEGATIVE) Urine Nitrite Negative (NEGATIVE) Urine Bilirubin Negative (NEGATIVE) Urine Urobilinogen 0.2 (0.2) EU/dL Ur Leukocyte Esterase Negative (NEGATIVE) Urine Opiates Screen Negative (NEGATIVE) Ur Buprenorphine Scrn Negative (NEGATIVE) Ur Oxycodone Screen Negative (NEGATIVE) Ur EDDP (Meth Metab) Negative (NEGATIVE) Urine Methadone Screen Negative (NEGATIVE) Ur Barbiturates Screen Negative (NEGATIVE) Ur Tricyclics Screen Negative (NEGATIVE) Ur Phencyclidine Scrn Negative (NEGATIVE) Ur Amphetamine Screen Negative (NEGATIVE) U Methamphetamines Scrn Negative (NEGATIVE) Urine MDMA Screen Negative (NEGATIVE) U Benzodiazepines Scrn Negative (NEGATIVE) U Cocaine Metab Screen Negative (NEGATIVE) U Marijuana (THC) Screen Negative (NEGATIVE) Ethyl Alcohol (0-3) mg/dL SARS CoV-2 RNA Rapid JAMILAH Negative (NEGATIVE) 08/16/20 08/16/20 08/16/20 Range/Units 01:50 07:39 07:39 WBC 3.4 L (4.0-10.0) x10^3/uL RBC 3.92 L (4.00-5.50) x10^6/uL Hgb 13.5 D (12.0-16.0) g/dL Hct 39.6 (33.0-47.0) % MCV 101.0 H D (78.0-93.0) fL MCH 34.4 H (26.0-32.0) pg MCHC 34.1 (32.0-36.0) g/dL RDW Coeff of Bryant 12.3 (10.0-15.0) % Plt Count 156 (130-400) x10^3/uL Neut % (Auto) 65.7 (50.0-80.0) % Lymph % (Auto) 20.9 L (25.0-50.0) % [place] % (Auto) 10.8 (2.0-11.0) % Eos % (Auto) 2.3 (0.0-4.0) % Baso % (Auto) 0.3 (0.2-1.2) % Sodium 139 (136-145) mmol/L Potassium 4.3 (3.5-5.1) mmol/L Chloride 103 (98-107) mmol/L Carbon Dioxide 30 (21-32) mmol/L Anion Gap 10.3 (10-20) mmol/L BUN 9 (7-18) mg/dL Creatinine 0.9 (0.55-1.02) mg/dL Est Cr Clr Drug Dosing 46.74 Estimated GFR (MDRD) > 60 Glucose 136 H (74-106) mg/dL Lactic Acid 5.8 H* (0.4-2.0) mmol/L Calcium 8.1 L (8.5-10.1) mg/dL Corrected Calcium 8.90 (8.5-10.1) mg/dL Magnesium 1.7 L (1.8-2.4) mg/dL Total Bilirubin 1.7 H (0.2-1.0) mg/dL AST 163 H (15-37) U/L ALT 80 H (14-59) U/L Alkaline Phosphatase 89 (46-116) U/L C-Reactive Protein (<=0.9) mg/dL Total Protein 6.2 L (6.4-8.2) g/dL Albumin 3.0 L (3.4-5.0) g/dL Globulin 3.2 Albumin/Globulin Ratio 0.94 Lipase (73-393) U/L Urine Color (YELLOW) Urine Appearance (CLEAR) Urine pH (5.0-8.0) Ur Specific [place] Urine Protein (NEGATIVE) mg/dL Urine Glucose (UA) (NEGATIVE) mg/dL Urine Ketones (NEGATIVE) mg/dL Urine Occult Blood (NEGATIVE) Urine Nitrite (NEGATIVE) Urine Bilirubin (NEGATIVE) Urine Urobilinogen (0.2) EU/dL Ur Leukocyte Esterase (NEGATIVE) Urine Opiates Screen (NEGATIVE) Ur Buprenorphine Scrn (NEGATIVE) Ur Oxycodone Screen (NEGATIVE) Ur EDDP (Meth Metab) (NEGATIVE) Urine Methadone Screen (NEGATIVE) Ur Barbiturates Screen (NEGATIVE) Ur Tricyclics Screen (NEGATIVE) Ur Phencyclidine Scrn (NEGATIVE) Ur Amphetamine Screen (NEGATIVE) U Methamphetamines Scrn (NEGATIVE) Urine MDMA Screen (NEGATIVE) U Benzodiazepines Scrn (NEGATIVE) U Cocaine Metab Screen (NEGATIVE) U Marijuana (THC) Screen (NEGATIVE) Ethyl Alcohol (0-3) mg/dL SARS CoV-2 RNA Rapid JAMILAH (NEGATIVE) 08/16/20 Range/Units 07:39 WBC (4.0-10.0) x10^3/uL RBC (4.00-5.50) x10^6/uL Hgb (12.0-16.0) g/dL Hct (33.0-47.0) % MCV (78.0-93.0) fL MCH (26.0-32.0) pg MCHC (32.0-36.0) g/dL RDW Coeff of [place] (10.0-15.0) % Plt Count (130-400) x10^3/uL Neut % (Auto) (50.0-80.0) % Lymph % (Auto) (25.0-50.0) % [place] % (Auto) (2.0-11.0) % Eos % (Auto) (0.0-4.0) % Baso % (Auto) (0.2-1.2) % Sodium (136-145) mmol/L Potassium (3.5-5.1) mmol/L Chloride (98-107) mmol/L Carbon Dioxide (21-32) mmol/L Anion Gap (10-20) mmol/L BUN (7-18) mg/dL Creatinine (0.55-1.02) mg/dL Est Cr Clr Drug Dosing Estimated GFR (MDRD) Glucose (74-106) mg/dL Lactic Acid 2.4 H* (0.4-2.0) mmol/L Calcium (8.5-10.1) mg/dL Corrected Calcium (8.5-10.1) mg/dL Magnesium (1.8-2.4) mg/dL Total Bilirubin (0.2-1.0) mg/dL AST (15-37) U/L ALT (14-59) U/L Alkaline Phosphatase (46-116) U/L C-Reactive Protein (<=0.9) mg/dL Total Protein (6.4-8.2) g/dL Albumin (3.4-5.0) g/dL Globulin Albumin/Globulin Ratio Lipase (73-393) U/L Urine Color (YELLOW) Urine Appearance (CLEAR) Urine pH (5.0-8.0) Ur Specific [place] Urine Protein (NEGATIVE) mg/dL Urine Glucose (UA) (NEGATIVE) mg/dL Urine Ketones (NEGATIVE) mg/dL Urine Occult Blood (NEGATIVE) Urine Nitrite (NEGATIVE) Urine Bilirubin (NEGATIVE) Urine Urobilinogen (0.2) EU/dL Ur Leukocyte Esterase (NEGATIVE) Urine Opiates Screen (NEGATIVE) Ur Buprenorphine Scrn (NEGATIVE) Ur Oxycodone Screen (NEGATIVE) Ur EDDP (Meth Metab) (NEGATIVE) Urine Methadone Screen (NEGATIVE) Ur Barbiturates Screen (NEGATIVE) Ur Tricyclics Screen (NEGATIVE) Ur Phencyclidine Scrn (NEGATIVE) Ur Amphetamine Screen (NEGATIVE) U Methamphetamines Scrn (NEGATIVE) Urine MDMA Screen (NEGATIVE) U Benzodiazepines Scrn (NEGATIVE) U Cocaine Metab Screen (NEGATIVE) U Marijuana (THC) Screen (NEGATIVE) Ethyl Alcohol (0-3) mg/dL SARS CoV-2 RNA Rapid JAMILAH (NEGATIVE) Med Orders - Current: Current Medications Cholecalciferol (Vitamin D3) 125 mcg PO DAILY [facility] Last Admin: 08/16/20 11:16 Dose: 125 mcg Documented by: Multivitamins/Minerals 1 tab/Thiamine HCl 100 mg/ Folic Acid 1 mg/ Magnesium Oxide 400 mg 0 tab PO DAILY [facility] Last Admin: 08/16/20 11:11 Dose: Not Given Documented by: Diphenhydramine HCl (Benadryl) 25 mg IVPUSH Q6H PRN PRN Reason: Nausea/Vomiting Ferrous Sulfate (Ferrous Sulfate) 325 mg PO DAILY [facility] Last Admin: 08/16/20 07:34 Dose: 325 mg Documented by: Fluoxetine HCl (Prozac) 10 mg PO DAILY [facility] Last Admin: 08/16/20 07:34 Dose: 10 mg Documented by: Dextrose/Sodium Chloride (Dextrose 5%-Normal Saline) 1,000 mls @ 150 mls/hr IV ASDIRECTED [facility] Last Admin: 08/16/20 18:08 Dose: 150 mls/hr Documented by: Loperamide HCl (Imodium) 4 mg PO Q6H PRN PRN Reason: Diarrhea Last Admin: 08/16/20 18:47 Dose: 4 mg Documented by: Lorazepam (Ativan) 0.5 mg PO TID [facility] Last Admin: 08/16/20 11:09 Dose: 0.5 mg Documented by: Lorazepam (Ativan) 0 mg IV ASDIRECTED PRN; Protocol PRN Reason: Withdrawal Symptoms Last Admin: 08/16/20 07:01 Dose: 2 mg Documented by: Metoprolol Tartrate (Lopressor) 25 mg PO BID [facility] Last Admin: 08/16/20 11:16 Dose: 25 mg Documented by: Naltrexone HCl (Naltrexone) 50 mg PO DAILY [facility] Last Admin: 08/16/20 11:16 Dose: 50 mg Documented by: Calcium Caltrate (600mg +D3Pt Own) 1 mg PO DAILY [facility] Last Admin: 08/16/20 11:12 Dose: 1 mg Documented by: Ondansetron HCl (Zofran) 4 mg IV Q6H PRN PRN Reason: Nausea/Vomiting Pantoprazole Sodium (Protonix Iv) 40 mg IVPUSH Q12H [facility] Last Admin: 08/16/20 12:37 Dose: 40 mg Documented by: Sodium Chloride (Saline Flush) 10 ml FLUSH ASDIRECTED PRN PRN Reason: Keep Vein Open Sucralfate (Carafate) 1 gm PO QIDACANDBED [facility] Last Admin: 08/16/20 17:05 Dose: 1 gm Documented by: Discontinued Medications Diphenhydramine HCl (Benadryl) 25 mg IVPUSH ONETIME ONE Stop: 08/15/20 22:08 Last Admin: 08/15/20 22:10 Dose: 25 mg Documented by: Folic Acid (Folic Acid) Confirm Administered Dose 50 mg .ROUTE .STK-MED ONE Stop: 08/15/20 22:37 Last Admin: 08/16/20 00:38 Dose: Not Given Documented by: Multivitamins/Minerals 10 ml/Folic Acid 1 mg/ Thiamine HCl 100 mg/ Sodium Chloride 1,011.2 mls @ 150 mls/hr IV NOW [facility] Stop: 08/16/20 04:51 Last Admin: 08/15/20 22:31 Dose: 150 mls/hr Documented by: Lactated Ringer's (Ringers, Lactated) 1,000 mls @ 500 mls/hr IV ASDIRECTED [facility] Last Admin: 08/16/20 01:49 Dose: 500 mls/hr Documented by: Lactated Ringer's (Ringers, Lactated) 1,000 mls @ 150 mls/hr IV ASDIRECTED [facility] Lorazepam (Ativan) 1 mg IVPUSH STAT ONE Stop: 08/15/20 22:53 Last Admin: 08/15/20 22:55 Dose: 1 mg Documented by: Magnesium Oxide (Magnesium Oxide) 400 mg PO DAILY ONE Stop: 08/16/20 00:34 Last Admin: 08/16/20 07:39 Dose: 400 mg Documented by: Multivitamins/Minerals (Infuvite Adult) Confirm Administered Dose 10 ml .ROUTE .STK-MED ONE Stop: 08/15/20 22:44 Last Admin: 08/16/20 00:39 Dose: Not Given Documented by: Multivitamins/Minerals (Infuvite Adult) Confirm Administered Dose 10 ml .ROUTE .STK-MED ONE Stop: 08/15/20 22:46 Last Admin: 08/16/20 00:39 Dose: Not Given Documented by: Non-Formulary Medication (Biotin [Biotin]) 1 mg PO DAILY [facility] Last Admin: 08/16/20 18:19 Dose: Not Given Documented by: Ondansetron HCl (Zofran) 4 mg IV ONETIME ONE Stop: 08/15/20 22:08 Last Admin: 08/15/20 22:15 Dose: 4 mg Documented by: Pantoprazole Sodium (Protonix Iv) 80 mg IVPUSH ONETIME ONE Stop: 08/15/20 22:08 Last Admin: 08/15/20 22:19 Dose: 80 mg Documented by: Thiamine HCl (Vitamin B-1) Confirm Administered Dose 200 mg .ROUTE .STK-MED ONE Stop: 08/15/20 22:37 Last Admin: 08/16/20 00:41 Dose: Not Given Documented by: - Exam General: Alert, Oriented HEENT: Pupils Equal, Pupils Reactive, EOMI Neck: Supple Lungs: Clear to Auscultation, Normal Respiratory Effort Cardiovascular: Regular Rate, Regular Rhythm GI/Abdominal Exam: Normal Bowel Sounds, Soft, Non-Tender, No Organomegaly (Female) Exam: Deferred Back Exam: Normal Inspection, Full Range of Motion Extremities: Normal Inspection, Normal Range of Motion, No Pedal Edema, Normal Capillary Refill Peripheral Pulses: 2+: Radial (L), Radial (R), Posterior Tibial (L), Posterior Tibial (R), Dorsalis Pedis (L), Dorsalis Pedis (R) Skin: Warm, Dry, Intact Neurological: No New Focal Deficit Psy/Mental Status: Alert, Normal Affect, Normal Mood Sepsis Event Note - Evaluation Sepsis Screening Result: No Definite Risk - Focused Exam Vital Signs: Vital Signs Temp Temp Pulse Pulse Resp BP BP 08/16/20 17:06 97.6 F 76 16 141/50 H 08/16/20 14:00 98.1 F 72 17 144/59 H 08/16/20 11:16 85 151/57 H 08/16/20 09:30 97.8 F 89 20 141/63 H 08/16/20 07:34 Pulse Ox Pulse Ox 08/16/20 17:06 97 08/16/20 14:00 91 L 08/16/20 11:16 08/16/20 09:30 98 08/16/20 07:34 96 - Problem List & Annotations (1) Alcohol abuse with intoxication SNOMED Code(s): 96234618 Code(s): F10.129 - ALCOHOL ABUSE WITH INTOXICATION, UNSPECIFIED Status: Acute Priority: High Annotation/Comment:: She is felt to be low risk for significant withdrawal symptoms given short duration of alcohol use (6 days) this time. She has done well and has only required 3 doses of lorazepam during her hospitalization. She had IV fluids initially but then has done well with PO intake. She has arranged admission to the residential program again today immediately upon her dismissal. She will not be started on any medications at this time but that can be addressed at follow-up. I have recommended she follow up with her PCP within 2 days of dismissal from the program. (2) Alcoholic gastritis SNOMED Code(s): 3693455 Code(s): K29.20 - ALCOHOLIC GASTRITIS WITHOUT BLEEDING Status: Acute Qualifiers: Chronicity: acute Gastritis bleeding: presence of bleeding unspecified Qualified Code(s): K29.20 - Alcoholic gastritis without bleeding (3) Dehydration SNOMED Code(s): 09241737 Code(s): E86.0 - DEHYDRATION Status: Acute Priority: Medium - Problem List Review Problem List Initiated/Reviewed/Updated: Yes - My Orders Last 24 Hours: My Active Orders 08/15/20 22:06 Sodium Chloride 0.9% [Saline Flush] 10 ml FLUSH ASDIRECTED PRN Peripheral IV Insertion Adult [OM.PC] Stat 08/15/20 22:43 Admission Status [Patient Status] [ADT] Routine 08/16/20 00:28 Height and Weight [RC] 07 Oxygen Therapy [RC] 08,20 Up With Assistance [RC] 08,20 VTE/DVT Education [RC] .PRN Vital Signs [RC] 06,10,14,18,22,02 Ondansetron [Zofran] 4 mg IV Q6H PRN Resuscitation Status Routine 08/16/20 00:29 Cardiac Monitoring [RC] 06,10,14,18,22 Intake and Output [RC] 06,18 Oxygen Therapy [RC] .PRN VTE/DVT Education [RC] .PRN Antiembolic Hose [OM.PC] Per Unit Routine 08/16/20 00:30 Antiembolic Devices [RC] 08,20 08/16/20 00:32 diphenhydrAMINE [Benadryl] 25 mg IVPUSH Q6H PRN 08/16/20 00:33 Assess Neurological Status [RC] .PRN CIWAA Assessment [RC] Q1H Consult to Case Management/Customer Professional [CONS] Routine LORazepam [Ativan] See Protocol IV ASDIRECTED PRN 08/16/20 00:34 Notify Provider [RC] .PRN 08/16/20 00:45 Dextrose 5%-0.9% NaCl [Dextrose 5%-Normal Saline] 1,000 ml IV ASDIRECTED Multivitamins w-Iron/Ca/FA/Min [Thera M Plus] 1 tab Thiamine [Vitamin B-1] 100 mg Folic Acid 1 mg Magnesium Oxide 400 mg PO DAILY 08/16/20 01:00 Pantoprazole [ProTONIX IV] 40 mg IVPUSH Q12H 08/16/20 07:00 Sucralfate [Carafate] 1 gm PO QIDACANDBED 08/16/20 Breakfast Regular Diet [DIET] 08/16/20 08:00 Calcium Carbonate [Calcium Carbonate] 1 mg PO DAILY Cholecalciferol (Vitamin D3) [Vitamin D3] 125 mcg PO DAILY FLUoxetine [PROzac] 10 mg PO DAILY Ferrous Sulfate 325 mg PO DAILY LORazepam [Ativan] 0.5 mg PO TID 08/16/20 08:45 Metoprolol Tartrate [Lopressor] 25 mg PO BID Naltrexone 50 mg PO DAILY 08/16/20 18:14 Loperamide [Imodium] 4 mg PO Q6H PRN 08/17/20 05:11 CBC WITH AUTO DIFF [HEME] AM COMPREHENSIVE METABOLIC PN,CMP [CHEM] AM LACTIC ACID [CHEM] AM MAGNESIUM [CHEM] AM - Assessment Assessment:: Assessment/plan. Admit the patient under my service under observation for alcohol detox and treatment for alcoholic gastritis. 1. Acute alcohol intoxication in the presence of alcoholism with concerns of difficult withdrawal. Tachycardia. We will continue the metoprolol. She has received multiple doses of Ativan. She also has scheduled Ativan. No hallucinations delusions or evidence of delirium. Continue CIWA scoring. #2 dehydration. Her lactic acid is improving. We will continue IV hydration. She has not been eating much orally we will continue her on dextrose and 150 mils an hour. She is putting out good urine. We will continue her hydration at this time. #3 alcoholic gastritis without any presence of bleeding. As above she will be on Protonix 40 mg IV twice daily. Will start on Carafate 4 times daily AC in bed. Diet as tolerated. Will observe for any gastric bleeding. VTE. Short stay TESHA stockings. Sepsis no signs of infection at this time with a normal white blood cell count as well as no fever. Her lactic acid is quite elevated at 5.2 although this is most likely related to her dehydration we will trend this throughout the night and during her stay as well and observe for any signs of infection. CODE STATUS full. New diagnosis today #4 diarrhea. We will prescribe as needed loperamide.
[2020-08-17] MEDS: Dextrose 5%-0.9% NaCl 1,000 ML IV SCH ×2 (01:05→07:44)
[2020-08-17] MEDS: Pantoprazole 40 MG Vial IVPUSH SCH ×2 (01:14→12:09)
[2020-08-17] MEDS: Sucralfate 1 GM Tab PO SCH ×2 (06:22→11:45)
[2020-08-17] MEDS: Multivitamins w-Iron/Ca/FA/Min 1 TAB, Thiamine 100 MG, Folic Acid 1 MG, Magnesium Oxide... PO SCH ×3 (07:45)
[2020-08-17] MEDS: Cholecalciferol (Vitamin D3) 25 MCG Tab PO SCH (07:45)
[2020-08-17] MEDS: Ferrous Sulfate 325 MG Tab PO SCH (07:45)
[2020-08-17] MEDS: Metoprolol Tartrate 25 MG Tab PO SCH ×2 (07:46→20:42)
[2020-08-17] MEDS: LORazepam 0.5 MG Tab PO SCH ×3 (07:46→20:43)
[2020-08-17] MEDS: CHOLECALCIFEROL PO SCH (07:47)
[2020-08-17] MEDS: FLUOXETINE 10 MG PO SCH (07:47)
[2020-08-17] MEDS: [UNRECOGNIZED DRUG - OTHER] PO SCH (07:47)
[2020-08-17] MEDS: CALCIUM CARBONATE PO SCH (07:47)
[2020-08-17] MEDS: Naltrexone 50 MG Tab PO SCH (07:49)
[2020-08-17 08:30] LABS: CHLORIDE,CL 105 mmol/L (98-107); SODIUM,NA 142 mmol/L (136-145)
[2020-08-17] MEDS: Loperamide 2 MG Cap PO PRN (08:47)
[2020-08-17 08:48] LABS: ANION GAP 9.7 mmol/L (10-20)
[2020-08-17] MEDS: Sodium Chloride 0.9% 10 ML Syringe FLUSH PRN ×2 (08:49→12:10)
--- NOTE | 2020-08-17 12:24 | PCM.PN ---
- General Info Date of Service: 08/17/20 - Patient Data Vitals - Most Recent: Last Vital Signs Temp 98.1 F 08/17/20 09:55 Pulse 81 08/17/20 09:55 Resp 14 08/17/20 09:55 BP 127/50 L 08/17/20 09:55 Pulse Ox 94 L 08/17/20 08:57 Weight - Most Recent: 190 lb I&O - Last 24 Hours: Intake & Output 08/16/20 08/17/20 08/17/20 22:59 06:59 14:59 Intake Total 2335 1957 540 Output Total 0 Balance 2335 1957 540 Lab Results Last 24 Hours: Laboratory Results - last 24 hr 08/17/20 08/17/20 08/17/20 Range/Units 07:33 07:33 07:33 WBC 3.6 L (4.0-10.0) x10^3/uL RBC 3.96 L (4.00-5.50) x10^6/uL Hgb 14.0 (12.0-16.0) g/dL Hct 40.2 (33.0-47.0) % MCV 101.5 H (78.0-93.0) fL MCH 35.4 H (26.0-32.0) pg MCHC 34.8 (32.0-36.0) g/dL RDW Coeff of [place] 12.2 (10.0-15.0) % Plt Count 136 (130-400) x10^3/uL Neut % (Auto) 65.8 (50.0-80.0) % Lymph % (Auto) 21.3 L (25.0-50.0) % [place] % (Auto) 10.1 (2.0-11.0) % Eos % (Auto) 2.5 (0.0-4.0) % Baso % (Auto) 0.3 (0.2-1.2) % Sodium 142 (136-145) mmol/L Potassium 3.7 (3.5-5.1) mmol/L Chloride 105 (98-107) mmol/L Carbon Dioxide 31 (21-32) mmol/L Anion Gap 9.7 L (10-20) mmol/L BUN 7 (7-18) mg/dL Creatinine 0.8 (0.55-1.02) mg/dL Est Cr Clr Drug Dosing 52.58 mL/min Estimated GFR (MDRD) > 60 Glucose 126 H (74-106) mg/dL Lactic Acid 2.4 H* (0.4-2.0) mmol/L Calcium 8.4 L (8.5-10.1) mg/dL Corrected Calcium 9.20 (8.5-10.1) mg/dL Magnesium 1.7 L (1.8-2.4) mg/dL Total Bilirubin 1.6 H (0.2-1.0) mg/dL AST 105 H (15-37) U/L ALT 72 H (14-59) U/L Alkaline Phosphatase 96 (46-116) U/L Total Protein 6.4 (6.4-8.2) g/dL Albumin 3.0 L (3.4-5.0) g/dL Globulin 3.4 Albumin/Globulin Ratio 0.88 Med Orders - Current: Current Medications Cholecalciferol (Vitamin D3) 125 mcg PO DAILY [facility] Last Admin: 08/17/20 07:45 Dose: 125 mcg Documented by: Multivitamins/Minerals 1 tab/Thiamine HCl 100 mg/ Folic Acid 1 mg/ Magnesium Oxide 400 mg 0 tab PO DAILY [facility] Last Admin: 08/17/20 07:45 Dose: 1 each Documented by: Diphenhydramine HCl (Benadryl) 25 mg IVPUSH Q6H PRN PRN Reason: Nausea/Vomiting Ferrous Sulfate (Ferrous Sulfate) 325 mg PO DAILY [facility] Last Admin: 08/17/20 07:45 Dose: 325 mg Documented by: Fluoxetine HCl (Prozac) 10 mg PO DAILY [facility] Last Admin: 08/17/20 07:47 Dose: 10 mg Documented by: Dextrose/Sodium Chloride (Dextrose 5%-Normal Saline) 1,000 mls @ 150 mls/hr IV ASDIRECTED [facility] Last Admin: 08/17/20 07:44 Dose: 150 mls/hr Documented by: Loperamide HCl (Imodium) 4 mg PO Q6H PRN PRN Reason: Diarrhea Last Admin: 08/17/20 08:47 Dose: 4 mg Documented by: Lorazepam (Ativan) 0.5 mg PO TID [facility] Last Admin: 08/17/20 12:09 Dose: 0.5 mg Documented by: Lorazepam (Ativan) 0 mg IV ASDIRECTED PRN; Protocol PRN Reason: Withdrawal Symptoms Last Admin: 08/16/20 07:01 Dose: 2 mg Documented by: Metoprolol Tartrate (Lopressor) 25 mg PO BID [facility] Last Admin: 08/17/20 07:46 Dose: 25 mg Documented by: Naltrexone HCl (Naltrexone) 50 mg PO DAILY [facility] Last Admin: 08/17/20 07:49 Dose: 50 mg Documented by: Calcium Caltrate (600mg +D3Pt Own) 1 mg PO DAILY [facility] Last Admin: 08/17/20 07:47 Dose: 1 mg Documented by: Ondansetron HCl (Zofran) 4 mg IV Q6H PRN PRN Reason: Nausea/Vomiting Last Admin: 08/17/20 08:49 Dose: 4 mg Documented by: Pantoprazole Sodium (Protonix Iv) 40 mg IVPUSH Q12H [facility] Last Admin: 08/17/20 12:09 Dose: 40 mg Documented by: Sodium Chloride (Saline Flush) 10 ml FLUSH ASDIRECTED PRN PRN Reason: Keep Vein Open Last Admin: 08/17/20 12:10 Dose: 10 ml Documented by: Sucralfate (Carafate) 1 gm PO QIDACANDBED [facility] Last Admin: 08/17/20 11:45 Dose: Not Given Documented by: Discontinued Medications Diphenhydramine HCl (Benadryl) 25 mg IVPUSH ONETIME ONE Stop: 08/15/20 22:08 Last Admin: 08/15/20 22:10 Dose: 25 mg Documented by: Folic Acid (Folic Acid) Confirm Administered Dose 50 mg .ROUTE .STK-MED ONE Stop: 08/15/20 22:37 Last Admin: 08/16/20 00:38 Dose: Not Given Documented by: Multivitamins/Minerals 10 ml/Folic Acid 1 mg/ Thiamine HCl 100 mg/ Sodium Chloride 1,011.2 mls @ 150 mls/hr IV NOW [facility] Stop: 08/16/20 04:51 Last Admin: 08/15/20 22:31 Dose: 150 mls/hr Documented by: Lactated Ringer's (Ringers, Lactated) 1,000 mls @ 500 mls/hr IV ASDIRECTED [facility] Last Admin: 08/16/20 01:49 Dose: 500 mls/hr Documented by: Lactated Ringer's (Ringers, Lactated) 1,000 mls @ 150 mls/hr IV ASDIRECTED [facility] Lorazepam (Ativan) 1 mg IVPUSH STAT ONE Stop: 08/15/20 22:53 Last Admin: 08/15/20 22:55 Dose: 1 mg Documented by: Magnesium Oxide (Magnesium Oxide) 400 mg PO DAILY ONE Stop: 08/16/20 00:34 Last Admin: 08/16/20 07:39 Dose: 400 mg Documented by: Multivitamins/Minerals (Infuvite Adult) Confirm Administered Dose 10 ml .ROUTE .STK-MED ONE Stop: 08/15/20 22:44 Last Admin: 08/16/20 00:39 Dose: Not Given Documented by: Multivitamins/Minerals (Infuvite Adult) Confirm Administered Dose 10 ml .ROUTE .STK-MED ONE Stop: 08/15/20 22:46 Last Admin: 08/16/20 00:39 Dose: Not Given Documented by: Non-Formulary Medication (Biotin [Biotin]) 1 mg PO DAILY [facility] Last Admin: 08/16/20 18:19 Dose: Not Given Documented by: Ondansetron HCl (Zofran) 4 mg IV ONETIME ONE Stop: 08/15/20 22:08 Last Admin: 08/15/20 22:15 Dose: 4 mg Documented by: Pantoprazole Sodium (Protonix Iv) 80 mg IVPUSH ONETIME ONE Stop: 08/15/20 22:08 Last Admin: 08/15/20 22:19 Dose: 80 mg Documented by: Thiamine HCl (Vitamin B-1) Confirm Administered Dose 200 mg .ROUTE .STK-MED ONE Stop: 08/15/20 22:37 Last Admin: 08/16/20 00:41 Dose: Not Given Documented by: Sepsis Event Note - Evaluation Sepsis Screening Result: No Definite Risk - Focused Exam Vital Signs: Vital Signs Temp Temp Pulse Pulse Resp BP BP 08/17/20 09:55 98.1 F 81 14 127/50 L 08/17/20 08:57 08/17/20 07:46 76 145/73 H 08/17/20 05:58 96.6 F L 66 18 145/63 H 08/17/20 02:00 97.4 F 54 L 16 116/76 Pulse Ox Pulse Ox 08/17/20 09:55 08/17/20 08:57 94 L 08/17/20 07:46 08/17/20 05:58 97 08/17/20 02:00 96 - Problem List & Annotations (1) Alcohol abuse with intoxication SNOMED Code(s): 02852371 Code(s): F10.129 - ALCOHOL ABUSE WITH INTOXICATION, UNSPECIFIED Status: Acute Priority: High Annotation/Comment:: She is felt to be low risk for significant withdrawal symptoms given short duration of alcohol use (6 days) this time. She has done well and has only required 3 doses of lorazepam during her hospitalization. She had IV fluids initially but then has done well with PO intake. She has arranged admission to the residential program again today immediately upon her dismissal. She will not be started on any medications at this time but that can be addressed at follow-up. I have recommended she follow up with her PCP within 2 days of dismissal from the program. (2) Alcoholic gastritis SNOMED Code(s): 8383670 Code(s): K29.20 - ALCOHOLIC GASTRITIS WITHOUT BLEEDING Status: Acute Qualifiers: Chronicity: acute Gastritis bleeding: presence of bleeding unspecified Qualified Code(s): K29.20 - Alcoholic gastritis without bleeding (3) Dehydration SNOMED Code(s): 81140370 Code(s): E86.0 - DEHYDRATION Status: Acute Priority: Medium - Problem List Review Problem List Initiated/Reviewed/Updated: Yes - My Orders Last 24 Hours: My Active Orders 08/16/20 18:14 Loperamide [Imodium] 4 mg PO Q6H PRN - Assessment Assessment:: Assessment/plan. Admit the patient under my service under observation for alcohol detox and treatment for alcoholic gastritis. 1. Acute alcohol intoxication in the presence of alcoholism with concerns of difficult withdrawal. No seizures or delirium. She is doing quite well with the CIWA scoring as well as the scheduled Ativan. She is tolerating the naltrexone. No social work available for plans on discharge. Continue previous therapies. #2 dehydration. She is starting to tolerate more oral fluids. We will discontinue her IV therapy at this time. Good urinary output. No sign of overload. #3 alcoholic gastritis without any presence of bleeding. Not like the way that the Carafate makes her stomach feel. She has not had any vomiting. She still has some uneasiness to her abdomen. We will discontinue the Carafate. Continue the Protonix. #4 Diarrhea. She has used a couple doses of the loperamide. Her diarrhea is somewhat improved. This is most likely due to her alcohol withdrawal. Labs are unremarkable potassium and magnesium. VTE. Short stay TES[employer] stockings. Sepsis no signs of infection at this time with a normal white blood cell count as well as no fever. CODE STATUS full.
[2020-08-18] MEDS: Pantoprazole 40 MG Vial IVPUSH SCH (01:20)
--- NOTE | 2020-08-18 01:21 | PCM.DCSUM1 ---
Discharge Summary - Hospital Course HPI Initial Comments: Patient comes emergency department today for help with alcohol detox and alcoholism. This patient is a chronic alcoholic who drinks alcohol on a daily basis. She drinks about a 1.75 of Bacardi a day. She was sober for many years about 4 years ago. She has been drinking heavily over the past couple years. She is getting to the point where she cannot drink anymore she does not want to drink anymore. She does have difficulty with withdrawals she gets the shakes nausea vomiting and diarrhea. She did drink 3 alcoholic drinks prior to coming to the emergency department today. She denies any recreational drug use. She does complain of some nausea no vomiting. She has no hematemesis. No chest pain no shortness of breath or difficulty breathing. She has chronic diarrhea. No hematuria dysuria or urinary frequency. She has not eaten any food in about 4 to 5 days. She has not showered in over a week. 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 She is interested in alcohol treatment although she knows she needs to detox before she can go because of her high alcohol usage. Her first thing that she does when she gets up in the morning is have 2-3 hard drinks of alcohol before she even gets out of bed. No Covid exposure no Covid symptoms Abdominal Diagnosis: Stroke: No - Discharge Data Discharge Date: 08/18/20 Discharge Disposition: Home, Self-Care 01 Condition: Good - Referral to Home Health Primary Care Physician: Josefina Huang PA-C - Discharge Diagnosis/Problem(s) (1) Alcohol abuse with intoxication SNOMED Code(s): 81272775 ICD Code: F10.129 - ALCOHOL ABUSE WITH INTOXICATION, UNSPECIFIED Status: Acute Priority: High (2) Alcoholic gastritis SNOMED Code(s): 1221417 ICD Code: K29.20 - ALCOHOLIC GASTRITIS WITHOUT BLEEDING Status: Acute Qualifiers: Chronicity: acute Gastritis bleeding: presence of bleeding unspecified Qualified Code(s): K29.20 - Alcoholic gastritis without bleeding (3) Dehydration SNOMED Code(s): 84921542 ICD Code: E86.0 - DEHYDRATION Status: Acute Priority: Medium - Patient Summary/Data Consults: Consultations 08/16/20 00:33 Consult to Case Management/Loom Fixer Helper [CONS] Routine Hospital Course: Patient was admitted into the hospital due to multiple concerns of long-term alcohol abuse intoxication and alcohol detox as well as dehydration alcoholic gastritis and diarrhea. She received scheduled Ativan and as needed Ativan during her hospitalization. She was followed by CHRISTIANO gutierrez. She received Protonix 40 mg IV push twice daily. She was hydrated for her dehydration. She did develop some diarrhea while she was going through withdrawal which was controlled with loperamide. Her electrolytes surprisingly were absolutely normal. She had no seizures hallucinations delusions or delirium with her alcohol detox. She is tolerated the detox procedure quite well. She was discharged home with some continued Ativan as well as Phenergan for her withdr awal symptoms. We will increase her result twice a day. As well as electrolyte rehydration orally at home. She is discharged home and sent to the CRU at [facility] for continued alcohol treatment. - Patient Instructions Diet: Heart Healthy Diet, Drink 8-10+ Glasses/Day, No Alcoholic Beverages Other/Special Instructions: Home today with family. To the CRU at [facility] for assistance. Make sure and drink plenty of fluids especially electrolyte containing materials such as gatorade and or powerade. Eat small frequent meals. Increase your Omeprazole to 40mg daily for the next 28 days then back to 20mg. RX to Drug Store. Consider getting an Upper endoscopy to assess for a gastric ulcer. Discuss with PCP. Folic Acid 1 tablet daily. Rx to pharmacy. Continue with your previous daily multi-vitamins and add Folic Acid daily. Rx sent to [facility] with the other ones as well. Lorazepam, 1 ta blet 4 times a day as needed for withdrawal symptoms. Rx to Pharmacy. Naltrexone, 1 tablet daily for the next 30 days to help with alcohol cravings. Rx to Pharmacy. Phenergan 1 tablet three times a day as needed for nausea. RX to [facility]. Good luck with your sobriety. Follow up with your PCP in a week for recheck. - Discharge Plan *PRESCRIPTION DRUG MONITORING PROGRAM REVIEWED*: Yes *COPY OF PRESCRIPTION DRUG MONITORING REPORT IN PATIENT [place]: Not Applicable Prescriptions/Med Rec: Folic Acid 1 mg PO DAILY #30 tab LORazepam [Lorazepam] 0.5 mg PO QID #16 tablet Naltrexone 50 mg PO DAILY #30 tab Promethazine [Phenergan] 25 mg PO Q8H #9 tab Home Medications: Home Meds FLUoxetine [PROzac] 10 mg PO DAILY 11/10/16 [History] Multivitamin [Daily Multiple Vitamin] 1 tab PO DAILY 11/10/16 [History] Omeprazole 20 mg PO BIDAC #60 cap.cr 07/13/17 [Rx] Biotin 1 mg PO DAILY 04/26/20 [History] Calcium Carbonate 500 mg PO DAILY 04/26/20 [History] Cholecalciferol (Vitamin D3) [D3-2000] 5,000 units PO DAILY 04/26/20 [History] Ferrous Sulfate 325 mg PO DAILY 04/26/20 [History] Folic Acid 1 mg PO DAILY tablet 08/18/20 [Rx] Folic Acid 1 mg PO DAILY #30 tab 08/18/20 [Rx] LORazepam [Ativan] 0 mg IV ASDIRECTED PRN vial 08/18/20 [Rx] LORazepam [Ativan] 0.5 mg PO TID tablet 08/18/20 [Rx] LORazepam [Lorazepam] 0.5 mg PO QID #16 tablet 08/18/20 [Rx] Magnesium Oxide 400 mg PO DAILY tablet 08/18/20 [Rx] Metoprolol Tartrate [Lopressor] 25 mg PO BID tablet 08/18/20 [Rx] Naltrexone 50 mg PO DAILY tablet 08/18/20 [Rx] Naltrexone 50 mg PO DAILY #30 tab 08/18/20 [Rx] Promethazine [Phenergan] 25 mg PO Q8H #9 tab 08/18/20 [Rx] Forms: ED Department Discharge Referrals: Josefina Huang PA-C [Primary Care Provider] - - Discharge Summary/Plan Comment DC Time >30 min.: Yes - General Info Date of Service: 08/17/20 Subjective Update: Patient is feeling quite a bit better today. She is tolerating oral fluids and food much better than she has. No nausea no vomiting. No abdominal pain. She still is somewhat shaky. No hallucinations or delusions. No chest pain or shortness of breath or difficulty breathing. Her diarrhea has improved with the loperamide. She just complains of being fatigued with some generalized weakness. - Patient Data Vitals - Most Recent: Last Vital Signs Temp 96.6 F L 08/17/20 22:00 Pulse 60 08/17/20 22:00 Resp 20 08/17/20 22:00 BP 144/86 H 12/06/20 22:00 Pulse Ox 94 L 08/17/20 22:00 Weight - Most Recent: 190 lb I&O - Last 24 hours: Intake & Output 08/17/20 08/17/20 08/18/20 14:59 22:59 06:59 Intake Total 540 120 Balance 540 120 Lab Results - Last 24 hrs: Laboratory Results - last 24 hr 08/17/20 08/17/20 08/17/20 Range/Units 07:33 07:33 07:33 WBC 3.6 L (4.0-10.0) x10^3/uL RBC 3.96 L (4.00-5.50) x10^6/uL Hgb 14.0 (12.0-16.0) g/dL Hct 40.2 (33.0-47.0) % MCV 101.5 H (78.0-93.0) fL MCH 35.4 H (26.0-32.0) pg MCHC 34.8 (32.0-36.0) g/dL RDW Coeff of [place] 12.2 (10.0-15.0) % Plt Count 136 (130-400) x10^3/uL Neut % (Auto) 65.8 (50.0-80.0) % Lymph % (Auto) 21.3 L (25.0-50.0) % [place] % (Auto) 10.1 (2.0-11.0) % Eos % (Auto) 2.5 (0.0-4.0) % Baso % (Auto) 0.3 (0.2-1.2) % Sodium 142 (136-145) mmol/L Potassium 3.7 (3.5-5.1) mmol/L Chloride 105 (98-107) mmol/L Carbon Dioxide 31 (21-32) mmol/L Anion Gap 9.7 L (10-20) mmol/L BUN 7 (7-18) mg/dL Creatinine 0.8 (0.55-1.02) mg/dL Est Cr Clr Drug Dosing 52.58 mL/min Estimated GFR (MDRD) > 60 Glucose 126 H (74-106) mg/dL Lactic Acid 2.4 H* (0.4-2.0) mmol/L Calcium 8.4 L (8.5-10.1) mg/dL Corrected Calcium 9.20 (8.5-10.1) mg/dL Magnesium 1.7 L (1.8-2.4) mg/dL Total Bilirubin 1.6 H (0.2-1.0) mg/dL AST 105 H (15-37) U/L ALT 72 H (14-59) U/L Alkaline Phosphatase 96 (46-116) U/L Total Protein 6.4 (6.4-8.2) g/dL Albumin 3.0 L (3.4-5.0) g/dL Globulin 3.4 Albumin/Globulin Ratio 0.88 Med Orders - Current: Current Medications Cholecalciferol (Vitamin D3) 125 mcg PO DAILY [facility] Last Admin: 08/17/20 07:45 Dose: 125 mcg Documented by: Multivitamins/Minerals 1 tab/Thiamine HCl 100 mg/ Folic Acid 1 mg/ Magnesium Oxide 400 mg 0 tab PO DAILY [facility] Last Admin: 08/17/20 07:45 Dose: 1 each Documented by: Diphenhydramine HCl (Benadryl) 25 mg IVPUSH Q6H PRN PRN Reason: Nausea/Vomiting Ferrous Sulfate (Ferrous Sulfate) 325 mg PO DAILY [facility] Last Admin: 08/17/20 07:45 Dose: 325 mg Documented by: Fluoxetine HCl (Prozac) 10 mg PO DAILY [facility] Last Admin: 08/17/20 07:47 Dose: 10 mg Documented by: Loperamide HCl (Imodium) 4 mg PO Q6H PRN PRN Reason: Diarrhea Last Admin: 08/17/20 08:47 Dose: 4 mg Documented by: Lorazepam (Ativan) 0.5 mg PO TID [facility] Last Admin: 08/17/20 20:43 Dose: 0.5 mg Documented by: Lorazepam (Ativan) 0 mg IV ASDIRECTED PRN; Protocol PRN Reason: Withdrawal Symptoms Last Admin: 08/16/20 07:01 Dose: 2 mg Documented by: Metoprolol Tartrate (Lopressor) 25 mg PO BID [facility] Last Admin: 08/17/20 20:42 Dose: 25 mg Documented by: Naltrexone HCl (Naltrexone) 50 mg PO DAILY [facility] Last Admin: 08/17/20 07:49 Dose: 50 mg Documented by: Calcium Caltrate (600mg +D3Pt Own) 1 mg PO DAILY [facility] Last Admin: 08/17/20 07:47 Dose: 1 mg Documented by: Ondansetron HCl (Zofran) 4 mg IV Q6H PRN PRN Reason: Nausea/Vomiting Last Admin: 08/17/20 08:49 Dose: 4 mg Documented by: Pantoprazole Sodium (Protonix Iv) 40 mg IVPUSH Q12H [facility] Last Admin: 08/17/20 12:09 Dose: 40 mg Documented by: Sodium Chloride (Saline Flush) 10 ml FLUSH ASDIRECTED PRN PRN Reason: Keep Vein Open Last Admin: 08/17/20 12:10 Dose: 10 ml Documented by: Discontinued Medications Diphenhydramine HCl (Benadryl) 25 mg IVPUSH ONETIME ONE Stop: 08/15/20 22:08 Last Admin: 08/15/20 22:10 Dose: 25 mg Documented by: Folic Acid (Folic Acid) Confirm Administered Dose 50 mg .ROUTE .STK-MED ONE Stop: 08/15/20 22:37 Last Admin: 08/16/20 00:38 Dose: Not Given Documented by: Multivitamins/Minerals 10 ml/Folic Acid 1 mg/ Thiamine HCl 100 mg/ Sodium Chloride 1,011.2 mls @ 150 mls/hr IV NOW [facility] Stop: 08/16/20 04:51 Last Admin: 08/15/20 22:31 Dose: 150 mls/hr Documented by: Lactated Ringer's (Ringers, Lactated) 1,000 mls @ 500 mls/hr IV ASDIRECTED [facility] Last Admin: 08/16/20 01:49 Dose: 500 mls/hr Documented by: Lactated Ringer's (Ringers, Lactated) 1,000 mls @ 150 mls/hr IV ASDIRECTED LON Dextrose/Sodium Chloride (Dextrose 5%-Normal Saline) 1,000 mls @ 150 mls/hr IV ASDIRECTED [facility] Last Admin: 08/17/20 07:44 Dose: 150 mls/hr Documented by: Lorazepam (Ativan) 1 mg IVPUSH STAT ONE Stop: 08/15/20 22:53 Last Admin: 08/15/20 22:55 Dose: 1 mg Documented by: Magnesium Oxide (Magnesium Oxide) 400 mg PO DAILY ONE Stop: 08/16/20 00:34 Last Admin: 08/16/20 07:39 Dose: 400 mg Documented by: Multivitamins/Minerals (Infuvite Adult) Confirm Administered Dose 10 ml .ROUTE .STK-MED ONE Stop: 08/15/20 22:44 Last Admin: 08/16/20 00:39 Dose: Not Given Documented by: Multivitamins/Minerals (Infuvite Adult) Confirm Administered Dose 10 ml .ROUTE .STK-MED ONE Stop: 08/15/20 22:46 Last Admin: 08/16/20 00:39 Dose: Not Given Documented by: Non-Formulary Medication (Biotin [Biotin]) 1 mg PO DAILY [facility] Last Admin: 08/16/20 18:19 Dose: Not Given Documented by: Ondansetron HCl (Zofran) 4 mg IV ONETIME ONE Stop: 08/15/20 22:08 Last Admin: 08/15/20 22:15 Dose: 4 mg Documented by: Pantoprazole Sodium (Protonix Iv) 80 mg IVPUSH ONETIME ONE Stop: 08/15/20 22:08 Last Admin: 08/15/20 22:19 Dose: 80 mg Documented by: Sucralfate (Carafate) 1 gm PO QIDACANDBED [facility] Last Admin: 08/17/20 11:45 Dose: Not Given Documented by: Thiamine HCl (Vitamin B-1) Confirm Administered Dose 200 mg .ROUTE .STK-MED ONE Stop: 08/15/20 22:37 Last Admin: 08/16/20 00:41 Dose: Not Given Documented by: - Exam General: Reports: Alert, Oriented HEENT: Reports: Pupils Equal, Pupils Reactive, EOMI, Mucous Membr. Moist/[place] Neck: Reports: Supple Lungs: Reports: Clear to Auscultation, Normal Respiratory Effort Cardiovascular: Reports: Regular Rate, Regular Rhythm GI/Abdominal Exam: Normal Bowel Sounds, Soft, Non-Tender (Female) Exam: Deferred Rectal (Female) Exam: Deferred Back Exam: Reports: Normal Inspection, Full Range of Motion Extremities: Normal Inspection, Normal Range of Motion, Non-Tender, Normal Capillary Refill Skin: Reports: Warm, Dry, Intact Neurological: Reports: No New Focal Deficit Psy/Mental Status: Reports: Alert, Normal Affect, Normal Mood
[2020-08-18] MEDS: LORazepam 0.5 MG Tab PO SCH (07:52)
[2020-08-18] MEDS: Cholecalciferol (Vitamin D3) 25 MCG Tab PO SCH (07:53)
[2020-08-18] MEDS: Multivitamins w-Iron/Ca/FA/Min 1 TAB, Thiamine 100 MG, Folic Acid 1 MG, Magnesium Oxide... PO SCH ×3 (07:53)
[2020-08-18] MEDS: FLUOXETINE 10 MG PO SCH (07:55)
[2020-08-18] MEDS: Naltrexone 50 MG Tab PO SCH (07:55)
[2020-08-18] MEDS: Metoprolol Tartrate 25 MG Tab PO SCH (07:55)
[2020-08-18] MEDS: Ferrous Sulfate 325 MG Tab PO SCH (07:55)
[2020-08-18 07:56] VITALS: BP 144/86; PULSE 67
[2020-08-18] MEDS: CHOLECALCIFEROL PO SCH (08:59)
[2020-08-18] MEDS: [UNRECOGNIZED DRUG - OTHER] PO SCH (08:59)
[2020-08-18] MEDS: CALCIUM CARBONATE PO SCH (08:59)
== END 2020-08-18 09:20 | disposition home or self-care (01) ==
LOC: VM.ED 21:32 → VM.MS 22:43
PROVIDERS: ADMIT Nurse Practitioner Family; ATTEND Nurse Practitioner Family
DX: F10.129 Alcohol abuse with intoxication, unspecified (principal); K29.20 Alcoholic gastritis without bleeding; F41.9 Anxiety disorder, unspecified; E86.0 Dehydration; F32.9 Major depressive disorder, single episode, unspecified; Z20.828 Contact with and (suspected) exposure to other viral communicable diseases; Z90.49 Acquired absence of other specified parts of digestive tract; Z98.84 Bariatric surgery status; Z88.8 Allergy status to other drugs, medicaments and biological substances; Z91.040 Latex allergy status; Z88.0 Allergy status to penicillin; Z79.899 Other long term (current) drug therapy
CPT/HCPCS: 36415; 80053; 80305-QW; 80307; 81003; 83605; 83690; 83735; 85025; 86140; 94760; 96365; 96375; 96376; 99217; 99220; 99225; 99284-25; A9270-GY; C9113; G0378; J1200; J2060; J2405; J3411; J7030; J7042; J7120; U0002

== ENCOUNTER 2020-12-10 11:28 | Emergency (ER) | payer MEDICARE, BC ==
[2020-12-10 12:35] VITALS: BP 165/81; PULSE 72
[2020-12-10] MEDS: Thiamine 100 MG Tab PO ONE (12:41)
--- NOTE | 2020-12-10 12:41 | EDM.PDOC ---
ED HPI GENERAL MEDICAL PROBLEM - General Chief Complaint: Drug or Alcohol Abuse Stated Complaint: Medical Clearance for CRU \ Requested by Patient Time Seen by Provider: 12/10/20 11:57 Source of Information: Reports: Patient - History of Present Illness INITIAL COMMENTS - FREE TEXT/NARRATIVE: Tammy is a 70 y/o lady who comes to the ER for medical clearance prior to going to CRU in [place]. She has been in contact with Sera her counselor, who has agreed to take her to CRU after she was cleared medically. She does report being sober for about 5 years and then she had stopped drinking until last fall when she started again. She had lost her job at the [employer] and started a job at [employer], but was having trouble with the computer system and then her brother . She has been struggling with finances also and this has all contributed. She did come here to the ER in August and was admitted to Observation for alcohol withdrawal and then went home and did pretty good without drinking until the last few weeks. She has started to drink every day again and she realizes that [facility] needs to go into treatment again to get well. She has previously been in treatment 2 times before. She reports her last alcoholic drink as 3 pm yesterday. She has not had much of an appetite, but has been able to drink water and keep it down. She has been taking her medications as prescribed. Taya Huang PA-C is her PCP at the [facility]. She has been able to get up every day and get herself dressed for the day. She has received COVID vaccine x2 and currently no COVID sx. - Related Data Allergies Allergy/AdvReac Type Severity Reaction Status Date / Time Penicillins Allergy Severe Cardiac Verified 12/10/20 12:14 Arrest bupropion [From Wellbutrin] Allergy Hives Verified 12/10/20 12:14 latex Allergy Rash Verified 12/10/20 12:14 Home Meds: Home Meds FLUoxetine [PROzac] 10 mg PO DAILY 11/10/16 [History] Multivitamin [Daily Multiple Vitamin] 1 tab PO DAILY 11/10/16 [History] Omeprazole 20 mg PO BIDAC #60 cap.cr 07/13/17 [Rx] Biotin 1 mg PO DAILY 04/26/20 [History] Calcium Carbonate 500 mg PO DAILY 04/26/20 [History] Cholecalciferol (Vitamin D3) [D3-2000] 5,000 units PO DAILY 04/26/20 [History] Ferrous Sulfate 325 mg PO DAILY 04/26/20 [History] Folic Acid 1 mg PO DAILY tablet 08/18/20 [Rx] Folic Acid 1 mg PO DAILY #30 tab 08/18/20 [Rx] LORazepam [Ativan] 0 mg IV ASDIRECTED PRN vial 08/18/20 [Rx] LORazepam [Ativan] 0.5 mg PO TID tablet 08/18/20 [Rx] LORazepam [Lorazepam] 0.5 mg PO QID #16 tablet 08/18/20 [Rx] Magnesium Oxide 400 mg PO DAILY tablet 08/18/20 [Rx] Metoprolol Tartrate [Lopressor] 25 mg PO BID tablet 08/18/20 [Rx] Naltrexone 50 mg PO DAILY tablet 08/18/20 [Rx] Naltrexone 50 mg PO DAILY #30 tab 08/18/20 [Rx] Promethazine [Phenergan] 25 mg PO Q8H #9 tab 08/18/20 [Rx] Past Medical History HEENT History: Reports: Hard of Hearing, Impaired Vision, Other (See Below) Other HEENT History: left ear drum loss of hearing Cardiovascular History: Reports: Blood Clots/VTE/DVT, Hypertension Other Cardiovascular History: hx of dvts, pvcs Gastrointestinal History: Reports: Chronic Diarrhea, Colon Polyp, GERD, Other (See Below) Other Gastrointestinal History: hx of gatric bypass Genitourinary History: Reports: UTI, Recurrent, Other (See Below) Other Genitourinary History: urethral stenosis, urethral diverticulum Musculoskeletal History: Reports: Other (See Below) Other Musculoskeletal History: osteopenia Psychiatric History: Reports: Addiction, Anxiety, Depression Endocrine/Metabolic History: Reports: Osteopenia Hematologic History: Reports: Anemia, B12 Deficiency, Iron Deficiency - Past Surgical History HEENT Surgical History: Reports: None Cardiovascular Surgical History: Reports: None GI Surgical History: Reports: Bariatric Procedure, Cholecystectomy, Colonoscopy, Hernia Repair/Other, Other (See Below) Other GI Surgeries/Procedures: gastric bypass Female Surgical History: Reports: Breast Reduction Endocrine Surgical History: Reports: None Musculoskeletal Surgical History: Reports: None Social & Family History - Family History Family Medical History: No Pertinent Family History - Caffeine Use Caffeine Use: Reports: Coffee, Soda - Living Situation & Occupation Living situation: Reports: , Alone Occupation: Retired Review of Systems - Review of Systems Review Of Systems: See Below Constitutional: Reports: No Symptoms Eyes: Reports: No Symptoms, Glasses Ears: Reports: No Symptoms Nose: Reports: No Symptoms Mouth/Throat: Reports: No Symptoms Respiratory: Reports: No Symptoms Cardiovascular: Reports: No Symptoms GI/Abdominal: Reports: Decreased Appetite Genitourinary: Reports: No Symptoms Musculoskeletal: Reports: No Symptoms Skin: Reports: No Symptoms Neurological: Reports: No Symptoms Psychiatric: Reports: Depression ED EXAM, GENERAL - Physical Exam Exam: See Below Exam Limited By: No Limitations General Appearance: Alert, WD/WN, No Apparent Distress (Elderly female, neatly dressed. Pleasant.) Eye Exam: Bilateral Eye: PERRL Ears: Hearing Grossly Normal Nose: Normal Inspection Throat/Mouth: Normal Inspection, Normal Teeth, Normal Voice Head: Atraumatic, Normocephalic Neck: Normal Inspection, Supple Respiratory/Chest: No Respiratory Distress, Lungs Clear, Chest Non-Tender Cardiovascular: Normal Peripheral Pulses, No Edema, No Murmur, Other (iregular heart rate) GI/Abdominal: Normal Bowel Sounds, Soft, Non-Tender (Female) Exam: Deferred Rectal (Female) Exam: Deferred Back Exam: Normal Inspection, Full Range of Motion Extremities: Normal Inspection, Normal Range of Motion, Normal Capillary Refill Neurological: Alert, Oriented, CN II-XII Intact, Normal Cognition, Normal Gait Psychiatric: Depressed Mood, Tearful Skin Exam: Warm, Dry, Intact, Normal Color Lymphatic: No Adenopathy Course - Vital Signs Text/Narrative:: 1157 The patient was seen by the [facility]. Labs were ordered. She was given Thiamine 100mg po x 1 in the ER. CIWA Score=1 (Anxiety=1). 1450 Some labs reviewed. COVID neg, CBC neg, CMP K=5.2, [place]=195; Mg=2.0, Amylase=31, Lipase=93, TSH=4.173. UA/UDS pending. 1505 UDS, UA neg. CIWA remains 1. Cleared for entrance to CRU. Patient given written instructions and left the ER in stable condition. Last Recorded V/S: Last Vital Signs Temp 36.2 C 12/10/20 12:16 Pulse 72 12/10/20 12:16 Resp 17 12/10/20 12:16 BP 165/81 H 12/10/20 12:16 Pulse Ox 97 12/10/20 12:16 - Orders/Labs/Meds Orders: Active Orders 24 hr Category Date Time Status CULTURE URINE [RM] Stat Lab 12/10/20 14:47 Received SALICYLATE [REF] Stat Lab 12/10/20 12:40 Received Labs: Laboratory Tests 12/10/20 12/10/20 12/10/20 Range/Units 12:40 12:40 12:44 WBC 6.5 (4.0-10.0) x10^3/uL RBC 4.80 (4.00-5.50) x10^6/uL Hgb 15.5 D (12.0-16.0) g/dL Hct 45.2 (33.0-47.0) % MCV 94.2 H D (78.0-93.0) fL MCH 32.3 H (26.0-32.0) pg MCHC 34.3 (32.0-36.0) g/dL RDW Coeff of [place] 14.5 (10.0-15.0) % Plt Count 182 (130-400) x10^3/uL Neut % (Auto) 79.3 (50.0-80.0) % Lymph % (Auto) 11.9 L (25.0-50.0) % [place] % (Auto) 7.9 (2.0-11.0) % Eos % (Auto) 0.6 (0.0-4.0) % Baso % (Auto) 0.3 (0.2-1.2) % Sodium 138 (136-145) mmol/L Potassium 5.2 H D (3.5-5.1) mmol/L Chloride 99 (98-107) mmol/L Carbon Dioxide 32 (21-32) mmol/L Anion Gap 12.2 (5-15) mmol/L BUN 15 (7-18) mg/dL Creatinine 1.0 (0.55-1.02) mg/dL Est Cr Clr Drug Dosing 42.06 mL/min Estimated GFR (MDRD) 55 Glucose 120 H (74-106) mg/dL Calcium 8.7 (8.5-10.1) mg/dL Corrected Calcium 8.94 (8.5-10.1) mg/dL Magnesium 2.0 (1.8-2.4) mg/dL Total Bilirubin 0.8 (0.2-1.0) mg/dL AST 33 (15-37) U/L ALT 39 (14-59) U/L Alkaline Phosphatase 128 H (46-116) U/L Total Protein 7.8 (6.4-8.2) g/dL Albumin 3.7 (3.4-5.0) g/dL Globulin 4.1 Albumin/Globulin Ratio 0.90 Amylase 31 (25-115) U/L Lipase 93 (73-393) U/L TSH, Ultra Sensitive 4.173 H (0.358-3.74) uIU/mL Urine Color (YELLOW) Urine Appearance (CLEAR) Urine pH (5.0-8.0) Ur Specific [place] Urine Protein (NEGATIVE) mg/dL Urine Glucose (UA) (NEGATIVE) mg/dL Urine Ketones (NEGATIVE) mg/dL Urine Occult Blood (NEGATIVE) Urine Nitrite (NEGATIVE) Urine Bilirubin (NEGATIVE) Urine Urobilinogen (0.2) EU/dL Ur Leukocyte Esterase (NEGATIVE) Urine RBC (NOT SEEN) /HPF Urine WBC (NOT SEEN) /HPF Ur Squamous Epith Cells (NOT SEEN) /HPF Urine Bacteria (NOT SEEN) /HPF Urine Mucus (NOT SEEN) /LPF Urine Opiates Screen (NEGATIVE) Ur Buprenorphine Scrn (NEGATIVE) Ur Oxycodone Screen (NEGATIVE) Ur EDDP (Meth Metab) (NEGATIVE) Urine Methadone Screen (NEGATIVE) Acetaminophen 0 L (10-30) ug/ml Ur Barbituates Screen (NEGATIVE) Ur Tricyclics Screen (NEGATIVE) Ur Phencyclidine Scrn (NEGATIVE) Ur Amphetamines Screen (NEGATIVE) U Methamphetamines Scrn (NEGATIVE) Urine MDMA Screen (NEGATIVE) U Benzodiazepines Scrn (NEGATIVE) Urine Cocaine Screen (NEGATIVE) U Marijuana (THC) Screen (NEGATIVE) Ethyl Alcohol < 3 (0-3) mg/dL SARS CoV-2 RNA Rapid JAMILAH Negative (NEGATIVE) 12/10/20 12/10/20 Range/Units 14:47 14:47 WBC (4.0-10.0) x10^3/uL RBC (4.00-5.50) x10^6/uL Hgb (12.0-16.0) g/dL Hct (33.0-47.0) % MCV (78.0-93.0) fL MCH (26.0-32.0) pg MCHC (32.0-36.0) g/dL RDW Coeff of [place] (10.0-15.0) % Plt Count (130-400) x10^3/uL Neut % (Auto) (50.0-80.0) % Lymph % (Auto) (25.0-50.0) % [place] % (Auto) (2.0-11.0) % Eos % (Auto) (0.0-4.0) % Baso % (Auto) (0.2-1.2) % Sodium (136-145) mmol/L Potassium (3.5-5.1) mmol/L Chloride (98-107) mmol/L Carbon Dioxide (21-32) mmol/L Anion Gap (5-15) mmol/L BUN (7-18) mg/dL Creatinine (0.55-1.02) mg/dL Est Cr Clr Drug Dosing mL/min Estimated GFR (MDRD) Glucose (74-106) mg/dL Calcium (8.5-10.1) mg/dL Corrected Calcium (8.5-10.1) mg/dL Magnesium (1.8-2.4) mg/dL Total Bilirubin (0.2-1.0) mg/dL AST (15-37) U/L ALT (14-59) U/L Alkaline Phosphatase (46-116) U/L Total Protein (6.4-8.2) g/dL Albumin (3.4-5.0) g/dL Globulin Albumin/Globulin Ratio Amylase (25-115) U/L Lipase (73-393) U/L TSH, Ultra Sensitive (0.358-3.74) uIU/mL Urine Color Yellow (YELLOW) Urine Appearance Slightly cloudy H (CLEAR) Urine pH 6.0 (5.0-8.0) Ur Specific [place] 1.015 Urine Protein 30 H (NEGATIVE) mg/dL Urine Glucose (UA) Negative (NEGATIVE) mg/dL Urine Ketones 40 H (NEGATIVE) mg/dL Urine Occult Blood Negative (NEGATIVE) Urine Nitrite Negative (NEGATIVE) Urine Bilirubin Negative (NEGATIVE) Urine Urobilinogen 0.2 (0.2) EU/dL Ur Leukocyte Esterase Small H (NEGATIVE) Urine RBC 0-5 (NOT SEEN) /HPF Urine WBC 10-20 H (NOT SEEN) /HPF Ur Squamous Epith Cells Few H (NOT SEEN) /HPF Urine Bacteria Rare (NOT SEEN) /HPF Urine Mucus Occasional H (NOT SEEN) /LPF Urine Opiates Screen Negative (NEGATIVE) Ur Buprenorphine Scrn Negative (NEGATIVE) Ur Oxycodone Screen Negative (NEGATIVE) Ur EDDP (Meth Metab) Negative (NEGATIVE) Urine Methadone Screen Negative (NEGATIVE) Acetaminophen (10-30) ug/ml Ur Barbituates Screen Negative (NEGATIVE) Ur Tricyclics Screen Negative (NEGATIVE) Ur Phencyclidine Scrn Negative (NEGATIVE) Ur Amphetamines Screen Negative (NEGATIVE) U Methamphetamines Scrn Negative (NEGATIVE) Urine MDMA Screen Negative (NEGATIVE) U Benzodiazepines Scrn Negative (NEGATIVE) Urine Cocaine Screen Negative (NEGATIVE) U Marijuana (THC) Screen Negative (NEGATIVE) Ethyl Alcohol (0-3) mg/dL SARS CoV-2 RNA Rapid JAMILAH (NEGATIVE) Meds: Medications Discontinued Medications Generic Name Dose Route Start Last Admin Trade Name Freq PRN Reason Stop Dose Admin Thiamine HCl 100 mg 12/10/20 12:25 12/10/20 12:41 Thiamine 100 Mg Tab PO 12/10/20 12:26 100 mg ONETIME ONE Administration Departure - Departure Time of Disposition: 15:07 Disposition: Home, Self-Care 01 Condition: Good Clinical Impression: Alcoholism, Medical clearance for psychiatric admission - Discharge Information *PRESCRIPTION DRUG MONITORING PROGRAM REVIEWED*: Not Applicable *COPY OF PRESCRIPTION DRUG MONITORING REPORT IN PATIENT [place]: Not Applicable Instructions: Alcohol Abuse and Dependence Information, Adult, Medical Screening Exam Referrals: Josefina Huang PA-C [Primary Care Provider] - Forms: ED Department Discharge Additional Instructions: -[facility] -Return as needed to the ER Sepsis Event Note (ED) - Evaluation Sepsis Screening Result: No Definite Risk - Focused Exam Vital Signs: Vital Signs Temp Pulse Resp BP Pulse Ox 12/10/20 12:16 36.2 C 72 17 165/81 H 97 - My Orders Last 24 Hours: My Active Orders 12/10/20 12:40 SALICYLATE [REF] Stat 12/10/20 14:47 CULTURE URINE [RM] Stat - Assessment/Plan Last 24 Hours: My Active Orders 12/10/20 12:40 SALICYLATE [REF] Stat 12/10/20 14:47 CULTURE URINE [RM] Stat
[2020-12-10 13:19] LABS: CHLORIDE,CL 99 mmol/L (98-107); SODIUM,NA 138 mmol/L (136-145)
[2020-12-10 13:20] LABS: ACETAMINOPHEN 0 ug/ml (10-30); ANION GAP 12.2 mmol/L (5-15)
[2020-12-10 14:55] LABS: BUPRENORPHINE,URINE NEGATIVE (NEGATIVE); MARIJUANA,URINE NEGATIVE (NEGATIVE); METHYLENEDIOXYMETHAMP,UR NEGATIVE (NEGATIVE); PHENCYCLIDINE,URINE NEGATIVE (NEGATIVE)
== END 2020-12-10 15:13 | disposition home or self-care (01) ==
LOC: VM.ED 11:28 → EEVIPCON 11:28 → SUPCPDRO 11:28 → VM.ED 15:13
DX: Z02.89 Encounter for other administrative examinations (principal); F10.20 Alcohol dependence, uncomplicated; I10 Essential (primary) hypertension; K21.9 Gastro-esophageal reflux disease without esophagitis; Z88.0 Allergy status to penicillin; Z88.8 Allergy status to other drugs, medicaments and biological substances; Z91.040 Latex allergy status; Z79.899 Other long term (current) drug therapy; Z20.822 Contact with and (suspected) exposure to COVID-19
CPT/HCPCS: 36415; 80053; 80143; 80179; 80305-QW; 80307; 81001; 82150; 83690; 83735; 84443; 85025; 87086; 87088; 99283; 99284; A9270-GY; U0002

== ENCOUNTER 2021-09-01 18:29 | Emergency (ER) | payer MEDICARE, BC ==
[2021-09-01 18:53] VITALS: BP 138/100; PULSE 84
--- NOTE | 2021-09-01 18:54 | EDM.PDOC ---
ED HPI GENERAL MEDICAL PROBLEM - General Stated Complaint: FALL AND HURT ARM Time Seen by Provider: 09/01/21 18:35 Source of Information: Reports: Patient History Limitations: Reports: No Limitations - History of Present Illness INITIAL COMMENTS - FREE TEXT/NARRATIVE: Patient presents to the ED for right wrist and elbow pain. She was carrying baking supples and a table and she started to drop things, this caused her to lose her balance. She fell onto an outstretched right wrist and hit her right elbow. Not on a blood thinner. Is right handed, no other injury. Pain at the wrist, some tingling to the tips of all her fingers on the right hand, but able to move all the fingers. no previous injury. Onset: Today Duration: Minutes: Location: Reports: Upper Extremity, Right Right Arm Pain Score (Numeric/FACES): 10 - Related Data Allergies Allergy/AdvReac Type Severity Reaction Status Date / Time Penicillins Allergy Severe Cardiac Verified 09/01/21 18:54 Arrest bupropion [From Wellbutrin] Allergy Hives Verified 09/01/21 18:54 latex Allergy Rash Verified 09/01/21 18:54 Home Meds: Home Meds FLUoxetine [PROzac] 10 mg PO DAILY 11/10/16 [History] Multivitamin [Daily Multiple Vitamin] 1 tab PO DAILY 11/10/16 [History] Omeprazole 20 mg PO BIDAC #60 cap.cr 07/13/17 [Rx] Biotin 1 mg PO DAILY 04/26/20 [History] Calcium Carbonate 500 mg PO DAILY 04/26/20 [History] Cholecalciferol (Vitamin D3) [D3-2000] 5,000 units PO DAILY 04/26/20 [History] Ferrous Sulfate 325 mg PO DAILY 04/26/20 [History] Folic Acid 1 mg PO DAILY tablet 08/18/20 [Rx] Folic Acid 1 mg PO DAILY #30 tab 08/18/20 [Rx] LORazepam [Ativan] 0 mg IV ASDIRECTED PRN vial 08/18/20 [Rx] LORazepam [Ativan] 0.5 mg PO TID tablet 08/18/20 [Rx] LORazepam [Lorazepam] 0.5 mg PO QID #16 tablet 08/18/20 [Rx] Magnesium Oxide 400 mg PO DAILY tablet 08/18/20 [Rx] Metoprolol Tartrate [Lopressor] 25 mg PO BID tablet 08/18/20 [Rx] Naltrexone 50 mg PO DAILY tablet 08/18/20 [Rx] Naltrexone 50 mg PO DAILY #30 tab 08/18/20 [Rx] Promethazine [Phenergan] 25 mg PO Q8H #9 tab 08/18/20 [Rx] Past Medical History HEENT History: Reports: Hard of Hearing, Impaired Vision, Other (See Below) Other HEENT History: left ear drum loss of hearing Cardiovascular History: Reports: Blood Clots/VTE/DVT, Hypertension Other Cardiovascular History: hx of dvts, pvcs Gastrointestinal History: Reports: Chronic Diarrhea, Colon Polyp, GERD, Other (See Below) Other Gastrointestinal History: hx of gatric bypass Genitourinary History: Reports: UTI, Recurrent, Other (See Below) Other Genitourinary History: urethral stenosis, urethral diverticulum Musculoskeletal History: Reports: Other (See Below) Other Musculoskeletal History: osteopenia Psychiatric History: Reports: Addiction, Anxiety, Depression Endocrine/Metabolic History: Reports: Osteopenia Hematologic History: Reports: Anemia, B12 Deficiency, Iron Deficiency - Past Surgical History HEENT Surgical History: Reports: None Cardiovascular Surgical History: Reports: None GI Surgical History: Reports: Bariatric Procedure, Cholecystectomy, Colonoscopy, Hernia Repair/Other, Other (See Below) Other GI Surgeries/Procedures: gastric bypass Female Surgical History: Reports: Breast Reduction Endocrine Surgical History: Reports: None Musculoskeletal Surgical History: Reports: None Social & Family History - Family History Family Medical History: No Pertinent Family History - Caffeine Use Caffeine Use: Reports: Coffee, Soda - Recreational Drug Use Recreational Drug Use: No Drug Use in Last 12 Months: No - Living Situation & Occupation Living situation: Reports: , Alone Occupation: Retired Review of Systems - Review of Systems Review Of Systems: See Below Constitutional: Reports: No Symptoms. Denies: Chills, Fever Eyes: Reports: No Symptoms Ears: Reports: No Symptoms. Denies: Dizziness, Tinnitus Nose: Reports: No Symptoms Mouth/Throat: Reports: No Symptoms Respiratory: Reports: No Symptoms Cardiovascular: Reports: No Symptoms GI/Abdominal: Reports: No Symptoms Musculoskeletal: Reports: Joint Pain (right wrist and right elbow) Skin: Reports: No Symptoms Neurological: Reports: No Symptoms, Confusion, Dizziness, Headache, Numbness ED EXAM, GENERAL - Physical Exam Exam: See Below Exam Limited By: No Limitations General Appearance: Alert, WD/WN, Mild Distress (due to pain in the wrist and elbow) Eye Exam: Bilateral Eye: EOMI, Normal Inspection, PERRL Ears: Normal External Exam, Hearing Grossly Normal Nose: Normal Inspection Throat/Mouth: Normal Lips, Normal Voice, No Airway Compromise Head: Atraumatic Respiratory/Chest: No Respiratory Distress, Lungs Clear, Normal Breath Sounds, No Accessory Muscle Use Cardiovascular: Normal Peripheral Pulses, Regular Rate, Rhythm, No Edema, No Murmur Extremities: Joint Swelling (rigth wrist , decreased motion in the right elbow, echymosis noted at both sites), Limited Range of Motion (wrist and elbow on the right), Other (no pain to palpation of the clavicle, echymosis of the upper bicep area on the right, at the olecranon process and distal radius. ) ED TRAUMA EXTREMITY PROCEDURES - Splinting Right Upper Extremity Pre-Procedure NV Status: Normal Post-Procedure NV Status: Normal Splint Material: Fiberglass, Other (stockinet, cotton padding and gayathri wraps) Splint Design: [place] (to include immobilization of the elbow) Applied & Form Fitted By: Provider Provider Post-Splint Application NV Check: NV Status Normal Complications: No Course - Vital Signs Last Recorded V/S: Last Vital Signs Temp 36.3 C 09/01/21 18:29 Pulse 84 09/01/21 18:29 Resp 18 09/01/21 18:29 BP 138/100 H 09/01/21 18:29 Pulse Ox 97 09/01/21 18:29 - Orders/Labs/Meds Orders: Active Orders 24 hr Category Date Time Status DME for Discharge [COMM] Stat Oth 09/01/21 19:15 Ordered - Radiology Interpretation Free Text/Narrative:: distal radius fracture, with impaction, mild angulation. interpreted by radiology elbow with osteoarthritis, no acute fracture however joint effusion noted. interpreted by radiology - Re-Assessments/Exams Free Text/Narrative Re-Assessment/Exam: 09/01/21 18:52 offered pain medication, declined. Will get an xray of the wrist and elbow. Departure - Departure Time of Disposition: 19:16 Disposition: Home, Self-Care 01 Condition: Good Clinical Impression: Wrist fracture, Elbow pain, right, Contusion - Discharge Information *PRESCRIPTION DRUG MONITORING PROGRAM REVIEWED*: Not Applicable *COPY OF PRESCRIPTION DRUG MONITORING REPORT IN PATIENT [place]: Not Applicable Instructions: RICE Therapy for Routine Care of Injuries, [id number], Acute Compartment Syndrome, Cast or Splint Care, Adult, [id number], Wrist Fracture Treated With Immobilization, [id number] Additional Instructions: Ice the sore and bruised areas. remember to elevate the wrist and wiggle the fingers. use the sling for comfort but remember to keep the hand higher up to help with swelling. If the splint becomes tight, remove the gayathri wrap, leave the splint in place and re wrap. . The fracture is impacted but minimally displaced. Use tylenol for pain, and read information about compartment syndrome. If you develop white and cold fingers, pain out of proportion and firmness to palpation of the tissue of the forearm, return to the ED. Make appointment with orthopedics for follow up early next week for possible surgical correction Sepsis Event Note (ED) - Focused Exam Vital Signs: Vital Signs Temp Pulse Resp BP Pulse Ox 09/01/21 18:29 36.3 C 84 18 138/100 H 97 - My Orders Last 24 Hours: My Active Orders 09/01/21 19:15 DME for Discharge [COMM] Stat - Assessment/Plan Last 24 Hours: My Active Orders 09/01/21 19:15 DME for Discharge [COMM] Stat
--- NOTE | 2021-09-01 19:24 | CR ---
[id number] RAD/RAD Wrist Right 3V Min EXAM: RAD Wrist Right 3V Min INDICATION: FALL ON OUTSTRETCHED HAND, PAIN IN ELBOW AND WRIST COMPARISON: April 26, 2020. DISCUSSION: There is an acute impacted and mildly dorsally angulated distal radial metaphysis fracture. Acute nondisplaced ulnar styloid fracture. 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 No dislocation. IMPRESSION: 1. Acute impacted and mildly angulated distal radial metaphysis fracture. Regino Melo MD 09/01/[id number] Thank you for allowing us to participate in the care of your patient.
--- NOTE | 2021-09-01 19:26 | CR ---
[id number] RAD/RAD Elbow Right 3V Min EXAM: RAD Elbow Right 3V Min INDICATION: FALL ON OUTSTRETCHED HAND, PAIN IN ELBOW AND WRIST COMPARISON: None. DISCUSSION: Minimal joint effusion suspicious for fracture. No fracture is identified. Normal alignment. Mild enthesopathy at the medial and lateral epicondylar tendon attachment sites. Mild ulnotrochlear osteoarthritis. IMPRESSION: 1. There is an elbow joint effusion which is suspicious for an intra-articular fracture. No fracture is identified. Regino Melo MD 09/01/21 [id number] Thank you for allowing us to participate in the care of your patient.
== END 2021-09-01 19:30 | disposition home or self-care (01) ==
LOC: VM.ED 18:29
DX: S59.201A Unspecified physeal fracture of lower end of radius, right arm, initial encounter for closed fracture (principal); S50.01XA Contusion of right elbow, initial encounter; I10 Essential (primary) hypertension; K21.9 Gastro-esophageal reflux disease without esophagitis; Z79.899 Other long term (current) drug therapy; Z88.0 Allergy status to penicillin; W01.0XXA Fall on same level from slipping, tripping and stumbling without subsequent striking against object, initial encounter
CPT/HCPCS: 73080-RT; 73110-RT; 99283-25

== ENCOUNTER 2024-11-22 09:13 | Emergency (ER) | payer MEDICARE ==
[2024-11-22] MEDS ORDERED: Sodium Chloride 0.9% 10 ML Syringe FLUSH PRN (09:37)
[2024-11-22 09:47] VITALS: PULSE 53
[2024-11-22 09:51] LABS: BASOPHILS PERCENT AUTO 0.3 % (0.2-1.2); EOSINOPHILS ABSOLUTE AUTO 0.1 x10^3/uL (0.0-0.5); EOSINOPHILS PERCENT AUTO 1.5 % (0.0-4.0); HEMOGLOBIN 14.2 g/dL (12.0-16.0); IMMATURE GRAN ABSOLUTE AUTO 0.01 x10^3/uL (0.00-0.07); LYMPHOCYTES ABSOLUTE AUTO 0.7 x10^3/uL (1.0-4.8); LYMPHOCYTES PERCENT AUTO 9.9 % (25.0-50.0); MEAN CORPUSCULAR HEMOGLOBIN 32.9 pg (26.0-32.0); MEAN CORPUSCULAR HGB CONC 33.8 g/dL (32.0-36.0); MEAN CORPUSCULAR VOLUME 97.4 fL (78.0-93.0); MONOCYTES ABSOLUTE AUTO 0.4 x10^3/uL (0.0-0.8); MONOCYTES PERCENT AUTO 6.6 % (2.0-11.0); NEUTROPHILS ABSOLUTE AUTO 5.4 x10^3/uL (1.8-7.7); NEUTROPHILS PERCENT AUTO 81.5 % (50.0-80.0); PLATELET COUNT,PLT 161 x10^3/uL (130-400); RED BLOOD CELL COUNT 4.31 x10^6/uL (4.00-5.50); WHITE BLOOD CELL COUNT,WBC 6.6 x10^3/uL (4.0-10.0)
[2024-11-22] MEDS: Sodium Chloride 0.9% 1,000 ML IV ONE (10:00)
[2024-11-22 10:17] LABS: A/G RATIO 0.94; ALANINE AMINOTRANSFERASE,ALT 27 U/L (14-59); ALBUMIN 3.3 g/dL (3.4-5.0); ALKALINE PHOSPHATASE 109 U/L (46-116); ASPARTATE AMNIOTRANSFERASE,AST 23 U/L (15-37); BILIRUBIN TOTAL 0.7 mg/dL (0.2-1.0); BLOOD UREA NITROGEN,BUN 12 mg/dL (7-18); CALCIUM 8.7 mg/dL (8.5-10.1); CARBON DIOXIDE,CO2 31 mmol/L (21-32); CHLORIDE,CL 104 mmol/L (98-107); CREATININE 0.8 mg/dL (0.55-1.02); GLUCOSE RANDOM 140 mg/dL (70-99); PROTEIN TOTAL,TP 6.8 g/dL (6.4-8.2); SODIUM,NA 140 mmol/L (136-145)
[2024-11-22 10:18] LABS: ESTIMATED GFR 76 mL/min (>=60)
[2024-11-22] MEDS: Ondansetron 4 MG/2 ML SDV IVPUSH ONE (10:23)
[2024-11-22] MEDS: Acetaminophen 325 MG Tab PO ONE (10:44)
[2024-11-22 14:05] VITALS: BP 126/86
== END 2024-11-22 13:55 | disposition home or self-care (01) ==
LOC: VM.ED 09:13
DX: R00.1 Bradycardia, unspecified (principal); T46.1X5A Adverse effect of calcium-channel blockers, initial encounter; I10 Essential (primary) hypertension; K21.9 Gastro-esophageal reflux disease without esophagitis; Z98.84 Bariatric surgery status; Z90.49 Acquired absence of other specified parts of digestive tract; Z88.0 Allergy status to penicillin; Z88.1 Allergy status to other antibiotic agents; Z88.8 Allergy status to other drugs, medicaments and biological substances; Z91.040 Latex allergy status; Z79.899 Other long term (current) drug therapy
CPT/HCPCS: 36415; 70450; 80053; 84484; 85025; 93005; 93010; 96361; 96374; 99284; 99285-25; A9270-GY; J2405; J7030

== ENCOUNTER 2025-06-28 18:08 | Emergency (ER) | payer MEDICARE ==
[2025-06-28] MEDS ORDERED: Sodium Chloride 0.9% 10 ML Syringe FLUSH PRN (19:07)
[2025-06-28 19:26] LABS: BASOPHILS ABSOLUTE AUTO 0.0 x10^3/uL (0.0-0.2); BASOPHILS PERCENT AUTO 0.3 % (0.2-1.2); EOSINOPHILS ABSOLUTE AUTO 0.0 x10^3/uL (0.0-0.5); EOSINOPHILS PERCENT AUTO 0.1 % (0.0-4.0); IMMATURE GRAN ABSOLUTE AUTO 0.01 x10^3/uL (0.00-0.07); IMMATURE GRAN PERCENT AUTO 0.10 % (0.00-0.43); LYMPHOCYTES ABSOLUTE AUTO 0.7 x10^3/uL (1.0-4.8); LYMPHOCYTES PERCENT AUTO 9.0 % (25.0-50.0); MONOCYTES ABSOLUTE AUTO 0.5 x10^3/uL (0.0-0.8); MONOCYTES PERCENT AUTO 6.0 % (2.0-11.0); NEUTROPHILS ABSOLUTE AUTO 6.3 x10^3/uL (1.8-7.7); NEUTROPHILS PERCENT AUTO 84.5 % (50.0-80.0); PLATELET COUNT,PLT 192 x10^3/uL (130-400); RED BLOOD CELL COUNT 4.68 x10^6/uL (4.00-5.50); WHITE BLOOD CELL COUNT,WBC 7.5 x10^3/uL (4.0-10.0)
[2025-06-28] MEDS: Ondansetron 4 MG/2 ML SDV IVPUSH ONE (19:30)
[2025-06-28] MEDS: fentaNYL 100 MCG/2 ML SDV IVPUSH ONE (19:32)
[2025-06-28 19:45] LABS: INR 1.0 (0.9-1.1); PTT,PARTIAL THROMBOPLSTIN TIME 23.0 SEC (24.3-33.4)
[2025-06-28 19:48] LABS: A/G RATIO 0.94; ALANINE AMINOTRANSFERASE,ALT 17 U/L (14-59); ASPARTATE AMNIOTRANSFERASE,AST 16 U/L (15-37); BILIRUBIN TOTAL 0.8 mg/dL (0.2-1.0); BLOOD UREA NITROGEN,BUN 13 mg/dL (7-18); CARBON DIOXIDE,CO2 30 mmol/L (21-32); CHLORIDE,CL 103 mmol/L (98-107); CREATININE 0.7 mg/dL (0.55-1.02); ESTIMATED GFR 89 mL/min (>=60); GLUCOSE RANDOM 134 mg/dL (70-99); POTASSIUM,K 4.3 mmol/L (3.5-5.1); PROTEIN TOTAL,TP 7.0 g/dL (6.4-8.2); SODIUM,NA 140 mmol/L (136-145)
[2025-06-28] MEDS: Iopamidol 612 MG/ML 100 ML Bottle IVPUSH ONE (20:11)
[2025-06-28 21:03] LABS: APPEARANCE,URINE SLIGHTLY CLOUDY (CLEAR); GLUCOSE,URINE NEGATIVE (NEGATIVE); OCCULT BLOOD,URINE TRACE-INTACT (NEGATIVE)
[2025-06-28 21:13] LABS: SQUAMOUS EPITHELIAL CELLS,UR MODERATE /HPF (NOT SEEN)
[2025-06-28] MEDS: Take Home: Ondansetron 4 MG Tab.DIS, 5 Tab Pack PO ONE (21:22)
[2025-06-28 21:29] VITALS: BP 140/78; PULSE 67
== END 2025-06-28 21:32 | disposition home or self-care (01) ==
LOC: VM.ED 18:08
DX: K52.9 Noninfective gastroenteritis and colitis, unspecified (principal); I10 Essential (primary) hypertension; K21.9 Gastro-esophageal reflux disease without esophagitis; Z88.0 Allergy status to penicillin; Z88.1 Allergy status to other antibiotic agents; Z88.8 Allergy status to other drugs, medicaments and biological substances; Z91.040 Latex allergy status; Z79.899 Other long term (current) drug therapy; Z90.49 Acquired absence of other specified parts of digestive tract
CPT/HCPCS: 36415; 74177; 80053; 81001; 82150; 83605; 83690; 85025; 85610; 85730; 86140; 96361; 96374; 96375; 99284; 99284-25; J2405; J3010; J7030; Q0162; Q9967